=== PATIENT | female | born 1980 | race Caucasian/White ===

== ENCOUNTER 2019-01-14 19:36 | Inpatient (IN) | payer MEDICARE, OTHER ==
[2019-01-14] MEDS ORDERED: Sodium Chloride 0.9% 1,000 ML IV STA (20:04)
[2019-01-14] MEDS ORDERED: Iohexol 240 (50 ml) PO ONE (21:13)
[2019-01-14 21:19] LABS: BASO % 0.1 % (0.0-2.0); HEMOGLOBIN 16.3 g/dL (12.0-16.0); LYMPH # 0.7 K/uL (1.0-4.3); MEAN CELL VOLUME 87.6 fl (81.0-99.0); MEAN CORPUSCULAR HEMOGLOBIN 30.1 pg (27.0-31.0); MEAN CORPUSCULAR HGB CONC 34.4 g/dL (33.0-37.0); MEAN PLATELET VOLUME 10.1 fl (7.2-11.7); MONO # 1.6 K/uL (0.0-0.8); MONO % 16.2 % (0.0-10.0); NEUT # 7.5 K/uL (1.8-7.0); NEUT % 76.7 % (50.0-75.0); NRBC % 0.2 % (0.0-0.0); PLATELET COUNT 232 K/uL (130-400); RBC 5.42 Mil/uL (3.80-5.20); RED CELL DISTRIBUTION WIDTH 13.4 % (11.5-14.5); WHITE BLOOD COUNT 9.8 K/uL (4.8-10.8)
[2019-01-14 21:39] LABS: ALB/GLOB RATIO 1.4 (1.0-2.1); ALBUMIN 4.7 g/dL (3.5-5.0); BLOOD UREA NITROGEN 18 mg/dl (7-17); CALCIUM 9.6 mg/dL (8.4-10.2); GFR NON-AFRICAN AMERICAN > 60; LIPASE 25 U/L (23-300)
[2019-01-14 21:40] LABS: ALT/SGPT 33 U/L (9-52); AST/SGOT 36 U/L (14-36)
--- NOTE | 2019-01-14 21:47 | ED PDOC ---
HPI: Abdomen Time Seen by Provider: 01/14/19 19:52 Chief Complaint (Nursing): Abdominal Pain Chief Complaint (Provider): Abdominal Pain History Per: Patient History/Exam Limitations: no limitations Onset/Duration Of Symptoms: Days (x 4) Current Symptoms Are (Timing): Still Present Quality Of Discomfort: "Pain" Associated Symptoms: Vomiting Additional Complaint(s): 38 year old female with a history of cerebral palsy and seizures presents to the ED for evaluation of abdominal pain and vomiting for four days. Patient report vomit is bilious but denies blood. She also complains of weakness, lightheadedness and fatigue. Patient states she is constipated, however admits that is chronic. Denies fever and chills. PMD: Dr. Meza Past Medical History Reviewed: Historical Data (cerebral palsy), Nursing Documentation, Vital Signs Vital Signs: Last Vital Signs Temp 98.0 F 01/14/19 19:37 Pulse 104 H 01/14/19 19:37 Resp 16 01/14/19 19:37 BP 119/74 01/14/19 19:37 Pulse Ox 98 01/14/19 19:37 - Medical History PMH: Seizures Other PMH: cerebral palsy - Surgical History Surgical History: Cholecystectomy - Family History Family History: States: Unknown Family Hx - Social History Current smoker - smoking cessation education provided: No Alcohol: None - Allergies Allergies/Adverse Reactions: Allergies Allergy/AdvReac Type Severity Reaction Status Date / Time haloperidol [From Haldol] Allergy RASH Verified 01/14/19 19:41 latex Allergy RASH Verified 01/14/19 19:41 lithium Allergy RASH Verified 01/14/19 19:41 Review of Systems ROS Statement: Except As Marked, All Systems Reviewed And Found Negative Constitutional: Positive for: Weakness, Other (fatigue and lightheadedness). Negative for: Fever, Chills Gastrointestinal: Positive for: Vomiting, Abdominal Pain, Constipation (chronic) Physical Exam - Reviewed Nursing Documentation Reviewed: Yes Vital Signs Reviewed: Yes - Physical Exam Appears: Positive for: In Acute Distress (in mild distress, tired and chronically ill appearing) Head Exam: Positive for: ATRAUMATIC, NORMAL INSPECTION, NORMOCEPHALIC Skin: Positive for: Normal Color, Warm, Dry Eye Exam: Positive for: EOMI, Normal appearance, PERRL ENT: Positive for: Other (dry mucous membranes) Neck: Positive for: Painless ROM, Supple Cardiovascular/Chest: Positive for: Regular Rate, Rhythm. Negative for: Murmur Respiratory: Positive for: Normal Breath Sounds. Negative for: Respiratory Distress Gastrointestinal/Abdominal: Positive for: Soft, Tenderness (diffusely tender). Negative for: Mass, Guarding, Rebound Back: Positive for: Normal Inspection. Negative for: Vertebral Tenderness Extremity: Positive for: Normal ROM, Other (diffusely poor muscle bulk especially in lower extremities. Patient reports she is usually bed bound). Negative for: Deformity Lymphatic: Negative for: Adenopathy Neurological/Psych: Positive for: Awake, Alert, Oriented (x 3), Motor/Sensory Deficits (minimal cognitive deficits) - Laboratory Results Result Diagrams: 01/18/19 06:40 01/18/19 06:40 Lab Results: Total Bilirubin 0.6 mg/dl (0.2-1.3) 01/14/19 20:30 AST 36 U/L (14-36) 01/14/19 20:30 ALT 33 U/L (9-52) 01/14/19 20:30 Alkaline Phosphatase 81 U/L (38-126) 01/14/19 20:30 Total Protein 8.0 G/DL (6.3-8.2) 01/14/19 20:30 Albumin 4.7 g/dL (3.5-5.0) 01/14/19 20:30 Globulin 3.3 gm/dL (2.2-3.9) 01/14/19 20:30 Albumin/Globulin Ratio 1.4 (1.0-2.1) 01/14/19 20:30 Lipase 25 U/L (23-300) 01/14/19 20:30 - ECG O2 Sat by Pulse Oximetry: 98 (RA) Pulse Ox Interpretation: Normal Medical Decision Making Medical Decision Makin Impression: abdominal pain and vomiting Differential diagnoses include but are not limited to: gastroenteritis, colitis, appendicitis, obstruction Initial Plan: --CT Abd pelvis --Alcohol --CMP --CBC --UDS --Lactic acid --Lipase --Magnesium --Phosphate --Urine dip --Urine preg --Dextrose 5%- -0.9% NS IV 500 mls --NS IV 1,000 mls --Omnipaque 50 ml PO --Pepcid 20 mg IVP --Zofran 8 mg IV Endorsed to Dr Lugo pending ER workup, reassessment and final ER disposition -- Scribe Attestation: Documented by Janet Steen, acting as a scribe for Leisa Nielson MD. Provider Scribe Attestation: All medical record entries made by the Scribe were at my direction and personally dictated by me. I have reviewed the chart and agree that the record accurately reflects my personal performance of the history, physical exam, medical decision making, and the department course for this patient. I have also personally directed, reviewed, and agree with the discharge instructions and disposition. Disposition - Clinical Impression Clinical Impression: Abdominal pain - Disposition Disposition: Transfer of Care Disposition Time: 00:00 Condition: FAIR
[2019-01-14] MEDS ORDERED: DiphenhydrAMINE 50 mg/ml Inj IVP STA (22:33)
[2019-01-14 22:42] LABS: BANDS 3 % (0-2); LYMPHOCYTE 10 % (20-50); MONOCYTE 16 % (0-10); NEUTROPHIL 71 % (42-75); PLATELET ESTIMATE NORMAL (NORMAL); TOTAL CELLS COUNTED 100
[2019-01-14] MEDS ORDERED: DiphenhydrAMINE 50 mg/ml Inj ONE (22:50)
[2019-01-14] MEDS ORDERED: Promethazine 25 MG in Sodium Chloride 0.9% 50 ML IVPB STA (23:05)
[2019-01-14] MEDS ORDERED: Iohexol 300 100 ML IJ ONE (23:59)
[2019-01-14] MEDS ORDERED: Sodium Chloride 0.9% 50 ML IV ONE (23:59)
--- NOTE | 2019-01-15 00:21 | ED PDOC ---
- Laboratory Results Result Diagrams: 01/18/19 06:40 01/18/19 06:40 Lab Results: Total Bilirubin 0.6 mg/dl (0.2-1.3) 01/14/19 20:30 AST 36 U/L (14-36) 01/14/19 20:30 ALT 33 U/L (9-52) 01/14/19 20:30 Alkaline Phosphatase 81 U/L (38-126) 01/14/19 20:30 Total Protein 8.0 G/DL (6.3-8.2) 01/14/19 20:30 Albumin 4.7 g/dL (3.5-5.0) 01/14/19 20:30 Globulin 3.3 gm/dL (2.2-3.9) 01/14/19 20:30 Albumin/Globulin Ratio 1.4 (1.0-2.1) 01/14/19 20:30 Lipase 25 U/L (23-300) 01/14/19 20:30 Beta HCG, Quant < 2.39 mIU/mL 01/14/19 20:30 - ECG O2 Sat by Pulse Oximetry: 98 (RA) Pulse Ox Interpretation: Normal Medical Decision Making Medical Decision Making: Time: 00:00 Patient care endorsed from Dr. Nielson to provider pending CT and reevaluation. 00:52 CT Abd Pelvis COMMENTS: Minimal bilateral pleural effusions. Bilateral atelectatic airspace disease of the lower lobes. Prior cholecystectomy. Small sliding hiatal hernia. Moderate partial small bowel obstruction. Transition zone and right lower quadrant without perforation or pneumatosis intestinalis. The liver is of uniform attenuation without mass or defect. There is no intra or extrahepatic biliary ductal dilatation. The spleen is normal. The pancreas is of normal contour and attenuation characteristics. There is no evidence of adrenal mass. Both kidneys demonstrate prompt and equal nephrograms. The kidneys are normal in size, shape and configuration. There is no evidence of renal or ureteral mass. No renal or ureteral calculi are identified. There is no hydroureter or hydronephrosis. No evidence for appendicitis. There is no bowel wall thickening. There is no evidence of abdominal ascites or lymphadenopathy. There is no evidence of intrinsic or extrinsic bladder mass. There is no pelvic ascites or lymphadenopathy. Images of the lung bases show no evidence of pleural or parenchymal mass. There are no pleural effusions. The bony structures are free of lytic or blastic lesions. IMPRESSION: Minimal bilateral pleural effusions. Bilateral atelectatic airspace disease of the lower lobes. Prior cholecystectomy. Small sliding hiatal hernia. Moderate partial small bowel obstruction. Transition zone and right lower quadrant without perforation or pneumatosis intestinalis. 04:25 Patient is to be admitted to general surgery. Patient currently has NG tube for abdominal decompression. Patient will be admitted under Dr. Arzate's service for eventual laproscopic surgery. Scribe Attestation: Documented by Solitario Gaffney, acting as a scribe for Kenisha Lugo MD. Provider Scribe Attestation: All medical record entries made by the Scribe were at my direction and personally dictated by me. I have reviewed the chart and agree that the record accurately reflects my personal performance of the history, physical exam, [place] [facility] decision making, and the department course for this patient. I have also personally directed, reviewed, and agree with the discharge instructions and disposition. Disposition - Clinical Impression Clinical Impression: Abdominal pain - POA Present On Arrival: None - Disposition Disposition: Routine/Home Disposition Time: 04:24 Condition: FAIR
--- NOTE | 2019-01-15 04:35 | CP.PCM.HP ---
<Milton Zamudio - Last Filed: 01/15/19 09:38> History of Present Illness - History of Present Illness History of Present Illness: General Surgery H&P for Dr. Tinoco Reason for consult: SBO 38F with a PMH that includes cerebral palsy, ?seizures, anxiety presents to [facility] ED for complaint of abdominal pain for 4 days. Patient seen and evaluated in the ED. Patient states that her pain began Saturday. She states she has never had pain like this before. She rates pain as moderate. She describes it as constnant cramping and dull located in the lower abdominal midline. SHe reports that she also has not had a BM or passed flatus since Saturday. Patient has history of constipation and takes "Mylanta" for it. Patient reports four episodes of nausea/vomiting that was bilious in nature but denies blood. She also complains of weakness, dizziness/lightheadedness and fatigue. Denies fever/chills, cp, SOB, diarrhea, incontinence, urinary symptoms. PMH: as above PSH: Laparoscopic cholecystectomy ALL: haloperidol, latex, lithium Present on Admission - Present on Admission Any Indicators Present on Admission: No History of DVT/PE: No History of Uncontrolled Diabetes: No Urinary Catheter: No Decubitus Ulcer Present: No Review of Systems - Review of Systems All systems: reviewed and no additional remarkable complaints except (as per HPI) Past Patient History - Past Social History Alcohol: None - NEUROLOGICAL Hx Seizures: Yes - PSYCHIATRIC Hx Substance Use: No - SURGICAL HISTORY Hx Cholecystectomy: Yes Meds Allergies/Adverse Reactions: Allergies Allergy/AdvReac Type Severity Reaction Status Date / Time haloperidol [From Haldol] Allergy RASH Verified 01/14/19 19:41 latex Allergy RASH Verified 01/14/19 19:41 lithium Allergy RASH Verified 01/14/19 19:41 Physical Exam - Constitutional Appears: Non-toxic, No Acute Distress - Head Exam Head Exam: ATRAUMATIC, NORMOCEPHALIC - Eye Exam Eye Exam: EOMI, Normal appearance Pupil Exam: PERRL - ENT Exam ENT Exam: Mucous Membranes Dry - Neck Exam Neck exam: Positive for: Full Rom - Respiratory Exam Respiratory Exam: NORMAL BREATHING PATTERN - Cardiovascular Exam Cardiovascular Exam: REGULAR RHYTHM - GI/Abdominal Exam GI & Abdominal Exam: Hypoactive Bowel Sounds, Soft, Tenderness (lower abdomen, midline). absent: Distended, Firm, Guarding, Hernia, Rebound, Rigid - Rectal Exam Rectal Exam: Deferred - Extremities Exam Extremities exam: Positive for: normal capillary refill, pedal pulses present. Negative for: calf tenderness - Back Exam Back exam: absent: CVA tenderness (L), CVA tenderness (R) - Neurological Exam Neurological exam: Alert, CN II-XII Intact, Oriented x3 - Psychiatric Exam Psychiatric exam: Normal Affect, Normal Mood - Skin Skin Exam: Dry, Intact, Normal Color, Warm Results - Vital Signs Recent Vital Signs: Last Vital Signs Temp 98.8 F 01/15/19 03:41 Pulse 78 01/15/19 03:41 Resp 17 01/15/19 03:41 BP 123/71 01/15/19 03:41 Pulse Ox 98 01/15/19 04:29 - Labs Result Diagrams: 01/14/19 20:30 01/14/19 20:30 Labs: Laboratory Results - last 24 hr 01/14/19 01/14/19 01/14/19 20:29 20:30 20:30 WBC 9.8 RBC 5.42 H Hgb 16.3 H Hct 47.5 H MCV 87.6 MCH 30.1 MCHC 34.4 RDW 13.4 Plt Count 232 MPV 10.1 Neut % (Auto) 76.7 H Lymph % (Auto) 7.0 L Dauphin % (Auto) 16.2 H Eos % (Auto) 0.0 Baso % (Auto) 0.1 Neut # (Auto) 7.5 H Lymph # (Auto) 0.7 L Dauphin # (Auto) 1.6 H Eos # (Auto) 0.0 Baso # (Auto) 0.0 Neutrophils % (Manual) 71 Band Neutrophils % 3 H Lymphocytes % (Manual) 10 L Monocytes % (Manual) 16 H Platelet Estimate Normal Sodium 135 Potassium 3.7 Chloride 93 L Carbon Dioxide 25 Anion Gap 21 H BUN 18 H Creatinine 0.8 Est GFR ( Amer) > 60 Est GFR (Non-Af Amer) > 60 Random Glucose 134 H Lactic Acid 1.4 Calcium 9.6 Phosphorus 5.1 H Magnesium 2.1 Total Bilirubin 0.6 AST 36 ALT 33 Alkaline Phosphatase 81 Total Protein 8.0 Albumin 4.7 Globulin 3.3 Albumin/Globulin Ratio 1.4 Lipase 25 Beta HCG, Quant < 2.39 Alcohol, Quantitative Cancelled Assessment & Plan - Assessment and Plan (Free Text) Assessment: 38 F who presents with SBO that has transition point in lower abdomen Plan: -NPO -NGT -Low intermittent suction -Strict I's & O's -Pain control -Anti-emetics PRN -GI/DVT ppx -Serial abd exam -Monitor bowel function -Tentively plan for Diagnostic Laparoscopy in OR 01/15 -Discussed with Dr. Erik Zamudio PGY2 - Date & Time Date: 01/15/19 Time: 02:00 <Franklyn Valencia - Last Filed: 01/15/19 12:18> Results - Vital Signs Recent Vital Signs: Last Vital Signs Temp 97.9 F 01/15/19 08:24 Pulse 99 H 01/15/19 08:24 Resp 19 01/15/19 08:24 BP 110/75 01/15/19 08:24 Pulse Ox 100 01/15/19 08:24 - Labs Result Diagrams: 01/15/19 05:20 01/15/19 05:20 Labs: Laboratory Results - last 24 hr 01/14/19 01/14/19 01/14/19 20:29 20:30 20:30 WBC 9.8 RBC 5.42 H Hgb 16.3 H Hct 47.5 H MCV 87.6 MCH 30.1 MCHC 34.4 RDW 13.4 Plt Count 232 MPV 10.1 Neut % (Auto) 76.7 H Lymph % (Auto) 7.0 L Dauphin % (Auto) 16.2 H Eos % (Auto) 0.0 Baso % (Auto) 0.1 Neut # (Auto) 7.5 H Lymph # (Auto) 0.7 L Dauphin # (Auto) 1.6 H Eos # (Auto) 0.0 Baso # (Auto) 0.0 Neutrophils % (Manual) 71 Band Neutrophils % 3 H Lymphocytes % (Manual) 10 L Monocytes % (Manual) 16 H Platelet Estimate Normal PT INR APTT Sodium 135 Potassium 3.7 Chloride 93 L Carbon Dioxide 25 Anion Gap 21 H BUN 18 H Creatinine 0.8 Est GFR ( Amer) > 60 Est GFR (Non-Af Amer) > 60 Random Glucose 134 H Lactic Acid 1.4 Calcium 9.6 Phosphorus 5.1 H Magnesium 2.1 Total Bilirubin 0.6 AST 36 ALT 33 Alkaline Phosphatase 81 Total Protein 8.0 Albumin 4.7 Globulin 3.3 Albumin/Globulin Ratio 1.4 Lipase 25 Beta HCG, Quant < 2.39 Urine Opiates Screen Urine Methadone Screen Ur Barbiturates Screen Ur Phencyclidine Scrn Ur Amphetamines Screen U Benzodiazepines Scrn U Oth Cocaine Metabols U Cannabinoids Screen Alcohol, Quantitative Cancelled Blood Type Blood Type Confirm Antibody Screen BBK History Checked 01/15/19 01/15/19 01/15/19 04:35 05:00 05:20 WBC 7.2 RBC 4.99 Hgb 14.9 Hct 44.5 MCV 89.2 MCH 30.0 MCHC 33.6 RDW 13.4 Plt Count 178 MPV 9.5 Neut % (Auto) 60.4 Lymph % (Auto) 18.0 L Dauphin % (Auto) 21.1 H Eos % (Auto) 0.4 Baso % (Auto) 0.1 Neut # (Auto) 4.3 Lymph # (Auto) 1.3 Dauphin # (Auto) 1.5 H Eos # (Auto) 0.0 Baso # (Auto) 0.0 Neutrophils % (Manual) Band Neutrophils % Lymphocytes % (Manual) Monocytes % (Manual) Platelet Estimate PT INR APTT Sodium Potassium Chloride Carbon Dioxide Anion Gap BUN Creatinine Est GFR ( Amer) Est GFR (Non-Af Amer) Random Glucose Lactic Acid Calcium Phosphorus Magnesium Total Bilirubin AST ALT Alkaline Phosphatase Total Protein Albumin Globulin Albumin/Globulin Ratio Lipase Beta HCG, Quant Urine Opiates Screen Negative Urine Methadone Screen Negative Ur Barbiturates Screen Negative Ur Phencyclidine Scrn Negative Ur Amphetamines Screen Negative U Benzodiazepines Scrn Negative U Oth Cocaine Metabols Negative U Cannabinoids Screen Negative Alcohol, Quantitative Blood Type O POSITIVE Blood Type Confirm Antibody Screen Negative BBK History Checked No verified bt 01/15/19 01/15/19 01/15/19 05:20 05:20 09:25 WBC RBC Hgb Hct MCV MCH MCHC RDW Plt Count MPV Neut % (Auto) Lymph % (Auto) Dauphin % (Auto) Eos % (Auto) Baso % (Auto) Neut # (Auto) Lymph # (Auto) Dauphin # (Auto) Eos # (Auto) Baso # (Auto) Neutrophils % (Manual) Band Neutrophils % Lymphocytes % (Manual) Monocytes % (Manual) Platelet Estimate PT 12.2 INR 1.1 APTT 27.7 Sodium 136 Potassium 3.6 Chloride 97 L Carbon Dioxide 26 Anion Gap 17 BUN 17 Creatinine 0.8 Est GFR ( Amer) > 60 Est GFR (Non-Af Amer) > 60 Random Glucose 108 H Lactic Acid Calcium 8.5 Phosphorus 4.8 H Magnesium 2.1 Total Bilirubin 0.4 AST 22 ALT 32 Alkaline Phosphatase 71 Total Protein 6.5 Albumin 3.8 Globulin 2.7 Albumin/Globulin Ratio 1.4 Lipase Beta HCG, Quant Urine Opiates Screen Urine Methadone Screen Ur Barbiturates Screen Ur Phencyclidine Scrn Ur Amphetamines Screen U Benzodiazepines Scrn U Oth Cocaine Metabols U Cannabinoids Screen Alcohol, Quantitative Blood Type Blood Type Confirm O POSITIVE Antibody Screen BBK History Checked Assessment & Plan - Assessment and Plan (Free Text) Plan: All medical record entries made by the resident were at my direction. I have reviewed the chart and agree that the record accurately reflects my personal performance of the history, physical exam, medical decision making. I have also personally directed, reviewed, and agree with the managemet plan
[2019-01-15] MEDS: Lactated Ringer's 1,000 ML IV SCH (05:14)
[2019-01-15 05:54] LABS: BASO % 0.1 % (0.0-2.0); MONO # 1.5 K/uL (0.0-0.8); NEUT # 4.3 K/uL (1.8-7.0); NRBC % 0.1 % (0.0-0.0); RED CELL DISTRIBUTION WIDTH 13.4 % (11.5-14.5)
[2019-01-15 06:00] LABS: INR 1.1; PROTHROMBIN TIME 12.2 Seconds (9.8-13.1)
[2019-01-15 06:02] LABS: BARBITURATES, UR NEGATIVE (NEGATIVE); BENZODIAZEPINES, UR NEGATIVE (NEGATIVE); OPIATES, UR NEGATIVE (NEGATIVE); PHENCYCLIDINE, UR NEGATIVE (NEGATIVE)
[2019-01-15 06:03] LABS: PARTIAL THROMBOPLASTIN TIME 27.7 Seconds (25.6-37.1)
[2019-01-15 06:09] LABS: ALB/GLOB RATIO 1.4 (1.0-2.1); ALBUMIN 3.8 g/dL (3.5-5.0); ALT/SGPT 32 U/L (9-52); AST/SGOT 22 U/L (14-36); BLOOD UREA NITROGEN 17 mg/dl (7-17); CALCIUM 8.5 mg/dL (8.4-10.2); GFR NON-AFRICAN AMERICAN > 60
[2019-01-15 06:13] LABS: EOS % 0.4 % (0.0-4.0); HEMOGLOBIN 14.9 g/dL (12.0-16.0); LYMPH # 1.3 K/uL (1.0-4.3); MEAN CELL VOLUME 89.2 fl (81.0-99.0); MEAN CORPUSCULAR HGB CONC 33.6 g/dL (33.0-37.0); MEAN PLATELET VOLUME 9.5 fl (7.2-11.7); NEUT % 60.4 % (50.0-75.0); RBC 4.99 Mil/uL (3.80-5.20); WHITE BLOOD COUNT 7.2 K/uL (4.8-10.8)
[2019-01-15 06:24] LABS: MONO % 21.1 % (0.0-10.0)
--- NOTE | 2019-01-15 14:37 | CT ---
Date of service: 01/15/2019 PROCEDURE: CT Abdomen and Pelvis with contrast HISTORY: Abdominal pain and vomiting COMPARISON: None available. TECHNIQUE: CT scan of the abdomen and pelvis was performed after administration of intravenous contrast. Oral contrast was administered. Coronal and sagittal reformatted images were obtained. Contrast dose: 85 mL Omnipaque 300 Radiation dose: Total exam DLP = 441.2 mGy-cm. This CT exam was performed using one or more of the following dose reduction techniques: Automated exposure control, adjustment of the mA and/or kV according to patient size, and/or use of iterative reconstruction technique. FINDINGS: LOWER THORAX: Small right and trace left pleural effusions. LIVER: Mild hepatomegaly and fatty liver. Normal homogeneous enhancement. No gross lesion or ductal dilatation. GALLBLADDER AND BILE DUCTS: Surgically absent. PANCREAS: Normal in size with homogeneous enhancement. No gross lesion or ductal dilatation. SPLEEN: Normal in size and appearance. ADRENALS: No discrete nodule. KIDNEYS AND URETERS: Normal in size with homogeneous enhancement. No hydronephrosis. No solid mass. VASCULATURE: No aortic aneurysm. There are no aortic atherosclerotic calcifications or mural plaque present. BOWEL: The stomach is distended. There is severe dilatation of fluid-filled proximal and mid small bowel loops. The distal small bowel loops are decompressed. APPENDIX: Normal appendix. PERITONEUM: No free fluid. No free air. LYMPH NODES: No enlarged lymph nodes. BLADDER: Well distended and normal in appearance. REPRODUCTIVE: The uterus is normal in size. BONES: No acute fracture. Within normal limits for the patient's age. OTHER FINDINGS: None. IMPRESSION: Moderate grade acute distal small bowel obstruction with transition zone likely in the right lower quadrant. No perforation or pneumatosis intestinalis. A preliminary report was provided by [facility].
[2019-01-15] MEDS ORDERED: Lactated Ringer's 1,000 ML IV ONE ×2 (18:33→22:00)
[2019-01-15] MEDS ORDERED: Bupivacaine HCl 0.5% PF (30 ml) Inj ONE (18:43)
--- NOTE | 2019-01-15 20:43 | PCM.SURG1 ---
Surgeon's Initial Post Op Note - Surgeon's Notes Surgeon: Dr. Valencia Arabic Professor: Dr. Franco PGY3 Type of Anesthesia: General Endo Anesthesia Administered By: Dr. Gorman Pre-Operative Diagnosis: Small Bowel Obstruction Operative Findings: See operative dictation Post-Operative Diagnosis: Same Operation Performed: Exploratory laparoscopy, converted to open laparotomy, running of small bowel, repair of enterotomy Specimen/Specimens Removed: none Estimated Blood Loss: EBL {In ML}: 20 Blood Products Given: N/A Drains Used: No Drains Post-Op Condition: Good Date of Surgery/Procedure: 01/15/19 Time of Surgery/Procedure: 20:43
[2019-01-15] MEDS: HYDROmorphone 0.5 mg/0.5 ml ISec IVP PRN ×3 (20:55→21:25)
[2019-01-16] MEDS: Lactated Ringer's 1,000 ML IV SCH ×5 (00:26→16:55)
[2019-01-16] MEDS: HYDROmorphone 0.5 mg/0.5 ml ISec IVP PRN ×3 (02:00→17:44)
--- NOTE | 2019-01-16 08:09 | CP.PCM.PN ---
<Milton Zamudio - Last Filed: 01/16/19 08:14> Subjective - Date & Time of Evaluation Date of Evaluation: 01/16/19 Time of Evaluation: 08:14 - Subjective Subjective: General Surgery Note for Dr. Tinoco Patient seen and examined at bedside. No acute event overnight. Patient is s/p diagnostic laparoscopy converted to open with repair of enterotomy POD#1. Patient admits to moderate pain. NGT with 300cc of dark brown output. Patient denies flatus or BM. Denies fever/chills, cp SOB, nausea/vomiting, diarrhea, urinary symptoms. Objective - Vital Signs/Intake and Output Vital Signs (last 24 hours): Temp Pulse Resp BP Pulse Ox 97.7 F 95 H 19 101/64 95 01/16/19 05:00 01/16/19 05:00 01/16/19 05:00 01/16/19 05:00 01/16/19 05:00 Intake and Output: 01/16/19 01/16/19 06:59 18:59 Intake Total 250 Output Total 50 1150 Balance 200 -1150 - Medications Medications: Current Medications Hydromorphone HCl (Dilaudid) 0.5 mg IVP Q4 PRN PRN Reason: Pain, moderate (4-7) Last Admin: 01/16/19 07:11 Dose: 0.5 mg Lactated Ringer's (Lactated Ringer's) 1,000 mls @ 150 mls/hr IV .Q6H40M [facility] Morphine Sulfate (Morphine) 2 mg IVP Q4 PRN PRN Reason: Pain, moderate (4-7) Ondansetron HCl (Zofran Inj) 4 mg IVP Q6 PRN PRN Reason: Nausea/Vomiting Pantoprazole Sodium (Protonix Inj) 40 mg IVP DAILY [facility] Last Admin: 01/15/19 08:59 Dose: 40 mg - Labs Labs: 01/15/19 05:20 01/15/19 05:20 PT 12.2 Seconds (9.8-13.1) 01/15/19 05:20 INR 1.1 01/15/19 05:20 APTT 27.7 Seconds (25.6-37.1) 01/15/19 05:20 - Constitutional Appears: No Acute Distress - Head Exam Head Exam: ATRAUMATIC, NORMOCEPHALIC - Eye Exam Eye Exam: EOMI, Normal appearance Pupil Exam: PERRL - Neck Exam Additional comments: NGT in place - Respiratory Exam Respiratory Exam: NORMAL BREATHING PATTERN - Cardiovascular Exam Cardiovascular Exam: REGULAR RHYTHM - GI/Abdominal Exam GI & Abdominal Exam: Soft, Tenderness (at surgical sites), Hypoactive Bowel S ounds - Rectal Exam Rectal Exam: Deferred - Extremities Exam Extremities Exam: Normal Capillary Refill - Back Exam Back Exam: absent: CVA tenderness (L), CVA tenderness (R) - Neurological Exam Neurological Exam: Alert, Awake, Oriented x3 - Psychiatric Exam Psychiatric exam: Normal Affect, Normal Mood - Skin Skin Exam: Dry, Intact, Warm Assessment and Plan - Assessment and Plan (Free Text) Assessment: 38 F who presented with SBO s/p diagnostic laparoscopy converted to open with repair of enterotomy POD#1 Plan: -NPO -NGT -low intermittent suction -Pain control -Anti-emetics PRN -Protonix -Serial abd exams -Monitor for bowel function -CT triple phase abd/pelvis 01/17 -Further recommendations as per Dr. Gunter PGY2 <Franklyn Valencia - Last Filed: 01/20/19 13:39> Subjective - Subjective Subjective: All medical record entries made by the resident were at my direction. I have reviewed the chart and agree that the record accurately reflects my personal performance of the history, physical exam, medical decision making. I have also personally directed, reviewed, and agree with the resident note Objective - Vital Signs/Intake and Output Vital Signs (last 24 hours): Temp Pulse Resp BP Pulse Ox 97.9 F 93 H 18 116/81 95 01/20/19 07:49 01/20/19 07:49 01/20/19 07:49 01/20/19 07:49 01/20/19 07:49 Intake and Output: 01/20/19 01/20/19 06:59 18:59 Output Total 450 Balance -450 - Medications Medications: Current Medications Benzocaine/Menthol (Cepacol Sore Throat) 1 rebecca PO Q3 PRN PRN Reason: Sore Throat Last Admin: 01/17/19 17:18 Dose: 1 rebecca Clozapine (Clozaril) 300 mg PO Q12H [facility] Last Admin: 01/20/19 11:12 Dose: 300 mg Enoxaparin Sodium (Lovenox) 40 mg SC DAILY [facility]; Protocol Last Admin: 01/20/19 11:11 Dose: 40 mg Erythromycin (Erythocin) 250 mg PO Q8H [facility]; Protocol Last Admin: 01/20/19 11:08 Dose: 250 mg Lactated Ringer's (Lactated Ringer's) 1,000 mls @ 150 mls/hr IV .Q6H40M [facility] Last Admin: 01/20/19 05:26 Dose: Not Given Ketorolac Tromethamine (Toradol) 30 mg IVP Q6 PRN PRN Reason: Pain, moderate (4-7) Last Admin: 01/19/19 16:00 Dose: 30 mg Lidocaine (Lidoderm) 1 ea TD DAILY [facility] Last Admin: 01/20/19 11:09 Dose: 1 ea Mirtazapine (Remeron) 30 mg PO HS [facility] Last Admin: 01/19/19 22:19 Dose: 30 mg Ondansetron HCl (Zofran Inj) 4 mg IVP Q6 PRN PRN Reason: Nausea/Vomiting Pantoprazole Sodium (Protonix Inj) 40 mg IVP DAILY [facility] Last Admin: 01/20/19 11:11 Dose: 40 mg - Labs Labs: 01/20/19 08:40 01/20/19 08:40 PT 12.2 Seconds (9.8-13.1) 01/15/19 05:20 INR 1.1 01/15/19 05:20 APTT 27.7 Seconds (25.6-37.1) 01/15/19 05:20
[2019-01-16 09:13] LABS: BASO % 0.2 % (0.0-2.0); EOS % 0.5 % (0.0-4.0); LYMPH # 1.2 K/uL (1.0-4.3); LYMPH % 14.3 % (20.0-40.0); MEAN CORPUSCULAR HEMOGLOBIN 29.4 pg (27.0-31.0); MEAN PLATELET VOLUME 9.2 fl (7.2-11.7); MONO # 0.9 K/uL (0.0-0.8); NEUT # 6.4 K/uL (1.8-7.0); NRBC % 0.1 % (0.0-0.0); RBC 4.42 Mil/uL (3.80-5.20); RED CELL DISTRIBUTION WIDTH 13.5 % (11.5-14.5); WHITE BLOOD COUNT 8.5 K/uL (4.8-10.8)
[2019-01-16 09:32] LABS: ALB/GLOB RATIO 1.2 (1.0-2.1); ALBUMIN 2.9 g/dL (3.5-5.0); ALT/SGPT 112 U/L (9-52); AST/SGOT 122 U/L (14-36); BLOOD UREA NITROGEN 10 mg/dl (7-17); CALCIUM 8.1 mg/dL (8.4-10.2); GFR NON-AFRICAN AMERICAN > 60
[2019-01-16] MEDS: Potassium CL 10mEq/100ml 100 ML IVPB SCH ×5 (12:48→22:35)
[2019-01-17] MEDS: Lactated Ringer's 1,000 ML IV SCH ×6 (01:25→21:34)
[2019-01-17 07:01] LABS: BASO % 0.3 % (0.0-2.0); EOS # 0.1 K/uL (0.0-0.7); EOS % 1.6 % (0.0-4.0); HEMOGLOBIN 11.9 g/dL (12.0-16.0); LYMPH % 11.2 % (20.0-40.0); MEAN CORPUSCULAR HEMOGLOBIN 29.9 pg (27.0-31.0); MEAN CORPUSCULAR HGB CONC 33.3 g/dL (33.0-37.0); MEAN PLATELET VOLUME 9.4 fl (7.2-11.7); MONO # 0.6 K/uL (0.0-0.8); MONO % 7.2 % (0.0-10.0); NEUT # 7.2 K/uL (1.8-7.0); NEUT % 79.7 % (50.0-75.0); RBC 3.98 Mil/uL (3.80-5.20)
[2019-01-17 07:21] LABS: ALB/GLOB RATIO 1.2 (1.0-2.1); ALBUMIN 2.9 g/dL (3.5-5.0); ALT/SGPT 72 U/L (9-52); AST/SGOT 60 U/L (14-36); BLOOD UREA NITROGEN 8 mg/dl (7-17); CALCIUM 8.4 mg/dL (8.4-10.2); GFR NON-AFRICAN AMERICAN > 60
--- NOTE | 2019-01-17 07:35 | CP.PCM.PN ---
<Milton Zamudio - Last Filed: 01/17/19 11:20> Subjective - Date & Time of Evaluation Date of Evaluation: 01/17/19 Time of Evaluation: 07:20 - Subjective Subjective: General Surgery Note for Dr. Tinoco Patient seen and examined at bedside. No acute event overnight. Patient is s/p diagnostic laparoscopy converted to open with repair of enterotomy POD#2. Patient reports pain slightly improved. NGT with 600cc/24hrs of dark brown output. Urine output was 900cc/24hr as per nursing. Patient denies flatus or BM. Patient home psych meds were restarted. She is OOB to chair this AM and using IS. Denies fever/chills, cp SOB, nausea/vomiting, diarrhea, urinary symptoms. Objective - Vital Signs/Intake and Output Vital Signs (last 24 hours): Temp Pulse Resp BP Pulse Ox 98.6 F 106 H 17 107/70 95 01/17/19 00:25 01/17/19 00:25 01/17/19 00:25 01/17/19 00:25 01/17/19 00:25 - Medications Medications: Current Medications Clozapine (Clozaril) 300 mg PO Q12H [facility] Last Admin: 01/17/19 01:21 Dose: 300 mg Enoxaparin Sodium (Lovenox) 40 mg SC DAILY [facility]; Protocol Hydromorphone HCl (Dilaudid) 0.5 mg IVP Q4 PRN PRN Reason: Pain, moderate (4-7) Last Admin: 01/16/19 17:44 Dose: 0.5 mg Lactated Ringer's (Lactated Ringer's) 1,000 mls @ 150 mls/hr IV .Q6H40M [facility] Last Admin: 01/17/19 05:49 Dose: Not Given Mirtazapine (Remeron) 30 mg PO HS [facility] Last Admin: 01/17/19 01:24 Dose: 30 mg Morphine Sulfate (Morphine) 2 mg IVP Q4 PRN PRN Reason: Pain, moderate (4-7) Ondansetron HCl (Zofran Inj) 4 mg IVP Q6 PRN PRN Reason: Nausea/Vomiting Pantoprazole Sodium (Protonix Inj) 40 mg IVP DAILY [facility] Last Admin: 01/16/19 11:12 Dose: 40 mg - Labs Labs: 01/17/19 05:35 01/17/19 05:35 PT 12.2 Seconds (9.8-13.1) 01/15/19 05:20 INR 1.1 01/15/19 05:20 APTT 27.7 Seconds (25.6-37.1) 01/15/19 05:20 - Additional Findings Additional findings: - Constitutional Appears: No Acute Distress - Head Exam Head Exam: ATRAUMATIC, NORMOCEPHALIC - Eye Exam Eye Exam: EOMI, Normal appearance Pupil Exam: PERRL - ENT Exam Additional comments: NGT in place - Respiratory Exam Respiratory Exam: NORMAL BREATHING PATTERN - Cardiovascular Exam Cardiovascular Exam: REGULAR RHYTHM - GI/Abdominal Exam GI & Abdominal Exam: Soft, Tenderness (at surgical sites), Hypoactive Bowel Sounds - Extremities Exam Extremities Exam: Normal Capillary Refill - Back Exam Back Exam: absent: CVA tenderness (L), CVA tenderness (R) - Neurological Exam Neurological Exam: Alert, Awake, Oriented x3 - Psychiatric Exam Psychiatric exam: Normal Affect, Normal Mood - Skin Skin Exam: Dry, Intact, Warm Assessment and Plan - Assessment and Plan (Free Text) Assessment: 38 F who presented with SBO s/p diagnostic laparoscopy converted to open with repair of enterotomy POD#2 Plan: -NPO -NGT -low intermittent suction -Pain control -Anti-emetics PRN -Protonix -Strict I's & O's -Continue home meds -Serial abd exams -Monitor for bowel function -Possible CT triple phase abd/pelvis today 01/17 -PT/OT -Further recommendations as per Dr. Gunter PGY2 <Franklyn Valencia - Last Filed: 01/20/19 13:36> Subjective - Subjective Subjective: All medical record entries made by the resident were at my direction. I have reviewed the chart and agree that the record accurately reflects my personal performance of the history, physical exam, medical decision making. I have also personally directed, reviewed, and agree with the resident note Objective - Vital Signs/Intake and Output Vital Signs (last 24 hours): Temp Pulse Resp BP Pulse Ox 97.9 F 93 H 18 116/81 95 01/20/19 07:49 01/20/19 07:49 01/20/19 07:49 01/20/19 07:49 01/20/19 07:49 Intake and Output: 01/20/19 01/20/19 06:59 18:59 Output Total 450 Balance -450 - Medications Medications: Current Medications Benzocaine/Menthol (Cepacol Sore Throat) 1 rebecca PO Q3 PRN PRN Reason: Sore Throat Last Admin: 01/17/19 17:18 Dose: 1 rebecca Clozapine (Clozaril) 300 mg PO Q12H [facility] Last Admin: 01/20/19 11:12 Dose: 300 mg Enoxaparin Sodium (Lovenox) 40 mg SC DAILY [facility]; Protocol Last Admin: 01/20/19 11:11 Dose: 40 mg Erythromycin (Erythocin) 250 mg PO Q8H [facility]; Protocol Last Admin: 01/20/19 11:08 Dose: 250 mg Lactated Ringer's (Lactated Ringer's) 1,000 mls @ 150 mls/hr IV .Q6H40M [facility] Last Admin: 01/20/19 05:26 Dose: Not Given Ketorolac Tromethamine (Toradol) 30 mg IVP Q6 PRN PRN Reason: Pain, moderate (4-7) Last Admin: 01/19/19 16:00 Dose: 30 mg Lidocaine (Lidoderm) 1 ea TD DAILY [facility] Last Admin: 01/20/19 11:09 Dose: 1 ea Mirtazapine (Remeron) 30 mg PO HS [facility] Last Admin: 01/19/19 22:19 Dose: 30 mg Ondansetron HCl (Zofran Inj) 4 mg IVP Q6 PRN PRN Reason: Nausea/Vomiting Pantoprazole Sodium (Protonix Inj) 40 mg IVP DAILY [facility] Last Admin: 01/20/19 11:11 Dose: 40 mg - Labs Labs: 01/20/19 08:40 01/20/19 08:40 PT 12.2 Seconds (9.8-13.1) 01/15/19 05:20 INR 1.1 01/15/19 05:20 APTT 27.7 Seconds (25.6-37.1) 01/15/19 05:20
[2019-01-17] MEDS ORDERED: Morphine 4 MG/ML VIAL ONE (09:28)
[2019-01-17] MEDS ORDERED: Morphine 4 MG/ML VIAL IVP PRN (09:30)
[2019-01-17] MEDS: Lidocaine 5% Patch TD SCH (11:01)
[2019-01-17] MEDS ORDERED: Potassium Phosphate 30 MMOLE in Sodium Chloride 0.9% 250 ML IV ONE (11:30)
[2019-01-17 13:52] VITALS: BMI 24.4
[2019-01-17] MEDS: Potassium CL 10mEq/100ml 100 ML IVPB SCH ×2 (14:09→15:34)
[2019-01-17] MEDS: Enoxaparin 40 mg Syringe SC SCH (15:32)
[2019-01-17] MEDS: Benzocaine/Menthol (Cepacol) Lozenge PO PRN (17:18)
[2019-01-18] MEDS: Lactated Ringer's 1,000 ML IV SCH ×5 (03:44→21:29)
[2019-01-18 07:40] LABS: BASO % 0.4 % (0.0-2.0); EOS # 0.4 K/uL (0.0-0.7); EOS % 4.8 % (0.0-4.0); LYMPH # 1.1 K/uL (1.0-4.3); LYMPH % 14.2 % (20.0-40.0); MEAN CELL VOLUME 88.9 fl (81.0-99.0); MEAN CORPUSCULAR HEMOGLOBIN 29.8 pg (27.0-31.0); MEAN CORPUSCULAR HGB CONC 33.5 g/dL (33.0-37.0); MEAN PLATELET VOLUME 8.8 fl (7.2-11.7); MONO # 0.6 K/uL (0.0-0.8); MONO % 8.4 % (0.0-10.0); NEUT # 5.4 K/uL (1.8-7.0); NEUT % 72.2 % (50.0-75.0); NRBC % 0.1 % (0.0-0.0); RBC 4.02 Mil/uL (3.80-5.20); RED CELL DISTRIBUTION WIDTH 13.1 % (11.5-14.5); WHITE BLOOD COUNT 7.5 K/uL (4.8-10.8)
[2019-01-18 08:43] LABS: ALB/GLOB RATIO 1.1 (1.0-2.1); ALBUMIN 3.1 g/dL (3.5-5.0); ALT/SGPT 55 U/L (9-52); AST/SGOT 31 U/L (14-36); BLOOD UREA NITROGEN 5 mg/dl (7-17); CALCIUM 8.7 mg/dL (8.4-10.2); GFR NON-AFRICAN AMERICAN > 60
[2019-01-18] MEDS ORDERED: Iohexol 240 (50 ml) PO STA (09:43)
--- NOTE | 2019-01-18 09:48 | CP.PCM.PN ---
<Milton Zamudio - Last Filed: 01/18/19 10:02> Subjective - Date & Time of Evaluation Date of Evaluation: 01/18/19 Time of Evaluation: 10:02 - Subjective Subjective: General Surgery Note for Dr. Tinoco Patient seen and examined at bedside. No acute event overnight. Patient is s/p diagnostic laparoscopy converted to open with repair of enterotomy POD#3. Patient reports pain has improved. NGT with 500cc/24hrs of dark brown output. Admits flatus but denies BM. She is OOB to chair this AM and using IS. She has been ambulating intermittently. Denies fever/chills, cp SOB, nausea/vomiting, diarrhea, urinary symptoms. Objective - Vital Signs/Intake and Output Vital Signs (last 24 hours): Temp Pulse Resp BP Pulse Ox 98.0 F 99 H 19 113/79 96 01/18/19 07:50 01/18/19 07:50 01/18/19 07:50 01/18/19 07:50 01/18/19 07:50 Intake and Output: 01/18/19 01/18/19 06:59 18:59 Intake Total 3510 Output Total 900 Balance 2610 - Medications Medications: Current Medications Benzocaine/Menthol (Cepacol Sore Throat) 1 rebecca PO Q3 PRN PRN Reason: Sore Throat Last Admin: 01/17/19 17:18 Dose: 1 rebecca Clozapine (Clozaril) 300 mg PO Q12H [facility] Last Admin: 01/17/19 21:37 Dose: 300 mg Enoxaparin Sodium (Lovenox) 40 mg SC DAILY [facility]; Protocol Last Admin: 01/17/19 15:32 Dose: 40 mg Hydromorphone HCl (Dilaudid) 0.5 mg IVP Q4 PRN PRN Reason: Pain, moderate (4-7) Last Admin: 01/16/19 17:44 Dose: 0.5 mg Lactated Ringer's (Lactated Ringer's) 1,000 mls @ 150 mls/hr IV .Q6H40M [facility] Last Admin: 01/18/19 03:47 Dose: Not Given Potassium Chloride (Potassium Chloride 10 Meq/100 Ml) 100 mls @ 100 mls/hr IVPB Q1 [facility] Stop: 01/18/19 12:59 Iohexol (Omnipaque 240 (50 Ml)) 250 ml PO ONCE STA Stop: 01/18/19 09:44 Ketorolac Tromethamine (Toradol) 30 mg IVP Q6 PRN PRN Reason: Pain, moderate (4-7) Last Admin: 01/18/19 02:20 Dose: 30 mg Lidocaine (Lidoderm) 1 ea TD DAILY [facility] Last Admin: 01/17/19 11:01 Dose: 1 ea Mirtazapine (Remeron) 30 mg PO HS [facility] Last Admin: 01/17/19 21:37 Dose: 30 mg Morphine Sulfate (Morphine) 2 mg IVP Q4 PRN PRN Reason: Pain, moderate (4-7) Last Admin: 01/17/19 09:30 Dose: 2 mg Ondansetron HCl (Zofran Inj) 4 mg IVP Q6 PRN PRN Reason: Nausea/Vomiting Pantoprazole Sodium (Protonix Inj) 40 mg IVP DAILY [facility] Last Admin: 01/17/19 09:20 Dose: 40 mg - Labs Labs: 01/18/19 06:40 01/18/19 06:40 PT 12.2 Seconds (9.8-13.1) 01/15/19 05:20 INR 1.1 01/15/19 05:20 APTT 27.7 Seconds (25.6-37.1) 01/15/19 05:20 - Additional Findings Additional findings: - Constitutional Appears: No Acute Distress - Head Exam Head Exam: ATRAUMATIC, NORMOCEPHALIC - Eye Exam Eye Exam: EOMI, Normal appearance Pupil Exam: PERRL - ENT Exam Additional comments: NGT in place - Respiratory Exam Respiratory Exam: NORMAL BREATHING PATTERN - Cardiovascular Exam Cardiovascular Exam: REGULAR RHYTHM - GI/Abdominal Exam GI & Abdominal Exam: Soft, Tenderness (at surgical sites), Normal Bowel Sounds - Extremities Exam Extremities Exam: Normal Capillary Refill - Back Exam Back Exam: absent: CVA tenderness (L), CVA tenderness (R) - Neurological Exam Neurological Exam: Alert, Awake, Oriented x3 - Psychiatric Exam Psychiatric exam: Normal Affect, Normal Mood - Skin Skin Exam: Dry, Intact, Warm Assessment and Plan - Assessment and Plan (Free Text) Assessment: 38 F who presented with SBO s/p diagnostic laparoscopy converted to open with repair of enterotomy POD#3 Plan: -NPO -NGT to low intermittent suction -becker candy and gum for bowel stimulation -Pain control -Anti-emetics PRN -Protonix/Lovenox -Strict I's & O's -Replete electrolytes as needed -Continue home meds -Serial abd exams -Monitor for bowel function -CT triple phase abd/pelvis today -PT/OT -Encourage OOB to chair, ambulation, IS -Further recommendations as per Dr. Gunter PGY2 <Franklyn Valencia - Last Filed: 01/20/19 13:33> Subjective - Subjective Subjective: All medical record entries made by the resident were at my direction. I have reviewed the chart and agree that the record accurately reflects my personal performance of the history, physical exam, medical decision making. I have also personally directed, reviewed, and agree with the resident note Objective - Vital Signs/Intake and Output Vital Signs (last 24 hours): Temp Pulse Resp BP Pulse Ox 97.9 F 93 H 18 116/81 95 01/20/19 07:49 01/20/19 07:49 01/20/19 07:49 01/20/19 07:49 01/20/19 07:49 Intake and Output: 01/20/19 01/20/19 06:59 18:59 Output Total 450 Balance -450 - Medications Medications: Current Medications Benzocaine/Menthol (Cepacol Sore Throat) 1 rebecca PO Q3 PRN PRN Reason: Sore Throat Last Admin: 01/17/19 17:18 Dose: 1 rebecca Clozapine (Clozaril) 300 mg PO Q12H [facility] Last Admin: 01/20/19 11:12 Dose: 300 mg Enoxaparin Sodium (Lovenox) 40 mg SC DAILY [facility]; Protocol Last Admin: 01/20/19 11:11 Dose: 40 mg Erythromycin (Erythocin) 250 mg PO Q8H [facility]; Protocol Last Admin: 01/20/19 11:08 Dose: 250 mg Lactated Ringer's (Lactated Ringer's) 1,000 mls @ 150 mls/hr IV .Q6H40M [facility] Last Admin: 01/20/19 05:26 Dose: Not Given Ketorolac Tromethamine (Toradol) 30 mg IVP Q6 PRN PRN Reason: Pain, moderate (4-7) Last Admin: 01/19/19 16:00 Dose: 30 mg Lidocaine (Lidoderm) 1 ea TD DAILY [facility] Last Admin: 01/20/19 11:09 Dose: 1 ea Mirtazapine (Remeron) 30 mg PO HS [facility] Last Admin: 01/19/19 22:19 Dose: 30 mg Ondansetron HCl (Zofran Inj) 4 mg IVP Q6 PRN PRN Reason: Nausea/Vomiting Pantoprazole Sodium (Protonix Inj) 40 mg IVP DAILY [facility] Last Admin: 01/20/19 11:11 Dose: 40 mg - Labs Labs: 01/20/19 08:40 01/20/19 08:40 PT 12.2 Seconds (9.8-13.1) 01/15/19 05:20 INR 1.1 01/15/19 05:20 APTT 27.7 Seconds (25.6-37.1) 01/15/19 05:20
[2019-01-18] MEDS: Lidocaine 5% Patch TD SCH (10:53)
[2019-01-18] MEDS: Enoxaparin 40 mg Syringe SC SCH (10:53)
[2019-01-18] MEDS: Potassium CL 10mEq/100ml 100 ML IVPB SCH ×3 (11:11→13:17)
[2019-01-18] MEDS ORDERED: Morphine 4 MG/ML VIAL IVP PRN (12:59)
[2019-01-18] MEDS ORDERED: Sodium Chloride 0.9% 100 ML ONE (14:17)
[2019-01-18] MEDS ORDERED: Iodixanol 320 MG/ML 100 ML BOTTLE IV ONE (14:17)
--- NOTE | 2019-01-18 16:37 | CT ---
Date of service: 01/18/2019 PROCEDURE: CT Abdomen and Pelvis with and without intravenous contrast HISTORY: S/P EX-LAP, SBO COMPARISON: 01/15/2019 CT scan TECHNIQUE: Axial images of the abdomen were obtained in the pre contrast, portal venous and delayed phases of enhancement. Coronal and sagittal reformats were generated. Contrast dose: 95 mL Radiation dose: Total exam DLP = 1019.23 mGy-cm. This CT exam was performed using one or more of the following dose reduction techniques: Automated exposure control, adjustment of the mA and/or kV according to patient size, and/or use of iterative reconstruction technique. FINDINGS: LOWER THORAX: Small right pleural effusion is noted, slightly greater than on prior exam. Mild subsegmental atelectasis is seen at the right lung base. Minor left pleural fluid and subsegmental atelectasis are also noted. Minor subsegmental atelectasis is seen in the right middle lobe region. LIVER: No appreciable enhancing masses within the liver are noted. There are small areas of air tracking along the portal regions and overlying the liver consistent with the patient's interval abdominal surgery. Small amount of ascites is also seen overlying the liver. Portal vein is patent. There is evidence of prior cholecystectomy. Common bile duct is normal in size. Minimal amount of intrahepatic ductal dilatation is not excluded although the common bile duct is once again normal in size. GALLBLADDER AND BILE DUCTS: Gallbladder has been previously removed. PANCREAS: Unremarkable. No gross lesion or ductal dilatation. SPLEEN: Unchanged from recent study. Tiny calcification is seen in the spleen.. ADRENALS: Unremarkable. No mass. KIDNEYS AND URETERS: Kidneys show no evidence of infarct, perinephric change, or hydronephrosis. No renal calculus was seen. Ureters are normal in outline. VASCULATURE: Unremarkable. No aortic aneurysm. No aortic atherosclerotic calcification or mural plaque present. BOWEL: Since the prior examination there has been interval abdominal surgery with numerous areas of free intraperitoneal air appreciated. There is evidence of anterior abdominal wall subcutaneous induration and some small pockets of air consistent with the surgery. Surgical ted are seen overlying the anterior abdominal skin region. Mild amounts of induration and thickening are seen in the anterior abdominal musculature related to the prior surgery. No large focal hematoma is appreciated. There is interval decrease in numerous regions of previously identified small bowel obstruction. Oral contrast is seen in multiple small bowel loops, some of which appear to be persistently dilated. Noted within the left upper abdomen are some dilated contrast filled loops identified and noted on axial images 58 through 78 and coronal images 36 through 45 is a possible small area of intussusception versus an area of acutely angulated tortuous small-bowel. A number of the other more distal small bowel loops appear to be moderately decompressed. Visualized colon is unremarkable without bowel wall thickening or distention. NG tube is also identified in the stomach which is predominantly decompressed. Visualized duodenum is unremarkable without significant opacification. APPENDIX: Normal appendix. PERITONEUM: Free intraperitoneal air is once again identified with some mild amounts of ascites. There are some mild areas of scattered nodularity in the mesentery which may reflect some mesenteric adenitis or be related to the recent inflammation and bowel obstruction. LYMPH NODES: Unremarkable. No enlarged lymph nodes. BLADDER: Bladder is mildly distended without wall thickening. Mild fluid is seen in the pelvis. REPRODUCTIVE: Uterus is unchanged. No gross adnexal masses are seen. BONES: No acute fracture. OTHER FINDINGS: None. IMPRESSION: Status post interval exploratory lap for small bowel obstruction when compared to the recent study dated 01/15/2019. Free intraperitoneal air is identified consistent with the recent surgery. There is interval decreased small bowel dilatation, although some persistent loops of small bowel dilatation are seen including some dilated loops in the left upper abdomen. In this region a subtle area of possible telescoping bowel is possibly noted, although this could be related to acute angulation and tortuosity of the small bowel in this region. Small amount of intussusception cannot be excluded. Oral contrast is seen throughout the colon without colonic wall thickening. Mild ascites. No appreciable focal liver mass. If focal liver mass remains of strong clinical concern, MRI would be suggested for further evaluation. Examination was placed into the critical red folder utilizing department protocol. Dr. Hernandes of the Surgical service was notified.
[2019-01-19] MEDS: Lactated Ringer's 1,000 ML IV SCH ×2 (04:12→22:46)
--- NOTE | 2019-01-19 07:14 | OP ---
PROCEDURE DATE: 01/15/2019 PREOPERATIVE DIAGNOSIS: Small bowel resection. POSTOPERATIVE DIAGNOSIS: Small bowel resection. PROCEDURE PERFORMED: Exploratory laparoscopy converted to open laparotomy, running of bowel and repair of enterotomy. SURGEON: Dr. Franklyn Tinoco MARCELL SURGEON: Aydin Franco, PGY-3. TYPE OF ANESTHESIA: General endotracheal anesthesia. ANESTHESIA ADMINISTERED BY: Shad Gorman MD COMPLICATIONS: Iatrogenic enterotomy. PATIENT INFORMATION: This is a pleasant 38-year-old female with a past medical history of cerebral palsy, anxiety, and schizophrenia, who presented to [facility] ED with four days of complaints of abdominal pain. The patient had a past surgical history significant for laparoscopic cholecystectomy. She reports that this abdominal pain often associated with a lack of flatus or bowel movements associated with constipation. In the ED, she had a CT scan which showed dilated loops of bowel with a clear transition point on the right side of the abdomen. Taken into account her surgical history, the decision was made to take her for a laparoscopic lysis of adhesions or small bowel resection for obstruction. DESCRIPTION OF PROCEDURE: After discussing with the patient, the possible consequences of non-operating as well the consequences of operating taken everything into account, the patient able to describe in accurate detail what the surgery would entail and she signed consent. She was then taken to the operating room where she was placed on the operating room table in the supine position. She was then intubated. Endotracheal anesthesia was administered. The patient was then prepped and draped in the usual sterile fashion. A time-out was done. Preoperative check list was conducted and all pertinent information was discussed with the operating team and everyone agreed on the procedure, patient and operation. An incision was made with a #11 blade infraumbilical. Then, using the tonsil, the subcutaneous tissues were then dissected down to the line of the fascia. A Veress needle was then inserted and confirmed using a saline viscous test. Gas insufflation was then obtained up to 15 mmHg. Using a Visi-Port technique under direct visualization, the #11 trocar was inserted into the abdomen and was inspected and there were no signs of any bowel injury. Dilated loops of bowel covered with omentum were noted. Next, a 5 mm port was inserted on the left abdominal wall and another one in the left wall. Under direct visualization, no damage to the bowel was noted. The cecum was identified and it was followed until the appendix was noted and the terminal ileum. The bowel was then run proximally. It was noted to be collapsed at the distal aspect; however, became dilated. During the running of the bowel, laparoscopically it was noted that there were multiple firm mass-like lesions; however, nothing was visible laparoscopically. The bowel was run proximally. Then, the bowel was again run distally. During the running of the bowel distally while using the atraumatic grasper, the bowel was very friable and a small enterotomy was made. At that point, the decision was made to convert to an open operation. While maintaining insufflation, the initial infraumbilical port was removed. The incision was then extended laterally one inch in each direction approximately. The small bowel was then eviscerated. The bowel was then run. The enterotomy was found. It was closed using three Lembert stitches with 2-0 silk suture. The bowel was run in both directions. No other enterotomies were noted. There was a clear area in which the bowel had been collapsed and healthy and the area in which there was dilation; however, there was no specific region in which there was an obvious stricture. However of note, there were multiple areas that appeared to be possibly hematomas or hamartomas in which there were dark areas that were firm to palpation with notable mass-like features. After running the bowel multiple times, the bowel was then inserted. There were adhesions noted in the anterior abdominal wall, which were dissected bluntly. The abdominal incision was then closed using 2-0 PDS which were then tied in the middle. The skin was then closed using ted and the ports were then also closed using ted. All counts were reported as correct by the nurses. The patient was then extubated and transferred to the PACU in stable condition. Aydin Franco DO Franklyn Pearson MD LUISA
--- NOTE | 2019-01-19 08:06 | CP.PCM.PN ---
Subjective - Date & Time of Evaluation Date of Evaluation: 01/19/19 Time of Evaluation: 08:10 - Subjective Subjective: General Surgery Note for Dr. Tinoco Patient seen and examined at bedside. No acute event overnight. Patient is s/p diagnostic laparoscopy converted to open with repair of enterotomy POD#4. Patient reports pain has improved. NGT with 400cc/24hrs of dark brown output. Admits flatus but denies BM. She has been ambulating intermittently. Denies fever/chills, chest pain, SOB, nausea/vomiting, diarrhea, urinary symptoms. Objective - Vital Signs/Intake and Output Vital Signs (last 24 hours): Temp Pulse Resp BP Pulse Ox 98.1 F 94 H 18 112/75 96 01/19/19 00:07 01/19/19 00:07 01/19/19 00:07 01/19/19 00:07 01/19/19 00:07 Intake and Output: 01/19/19 01/19/19 06:59 18:59 Intake Total 2400 1710 Output Total 950 1400 Balance 1450 310 - Medications Medications: Current Medications Benzocaine/Menthol (Cepacol Sore Throat) 1 rebecca PO Q3 PRN PRN Reason: Sore Throat Last Admin: 01/17/19 17:18 Dose: 1 rebecca Clozapine (Clozaril) 300 mg PO Q12H [facility] Last Admin: 01/18/19 21:26 Dose: 300 mg Enoxaparin Sodium (Lovenox) 40 mg SC DAILY [facility]; Protocol Last Admin: 01/18/19 10:53 Dose: 40 mg Lactated Ringer's (Lactated Ringer's) 1,000 mls @ 150 mls/hr IV .Q6H40M [facility] Last Admin: 01/19/19 04:12 Dose: 150 mls/hr Potassium Chloride (Potassium Chloride 10 Meq/100 Ml) 100 mls @ 100 mls/hr IVPB Q1 [facility] Stop: 01/19/19 12:59 Ketorolac Tromethamine (Toradol) 30 mg IVP Q6 PRN PRN Reason: Pain, moderate (4-7) Last Admin: 01/18/19 21:22 Dose: 30 mg Lidocaine (Lidoderm) 1 ea TD DAILY [facility] Last Admin: 01/18/19 10:53 Dose: 1 ea Mirtazapine (Remeron) 30 mg PO HS [facility] Last Admin: 01/18/19 21:26 Dose: 30 mg Morphine Sulfate (Morphine) 2 mg IVP Q4 PRN PRN Reason: Pain, severe (8-10) Last Admin: 01/18/19 14:29 Dose: 2 mg Ondansetron HCl (Zofran Inj) 4 mg IVP Q6 PRN PRN Reason: Nausea/Vomiting Pantoprazole Sodium (Protonix Inj) 40 mg IVP DAILY [facility] Last Admin: 01/18/19 10:54 Dose: 40 mg - Labs Labs: 01/18/19 06:40 01/18/19 06:40 PT 12.2 Seconds (9.8-13.1) 01/15/19 05:20 INR 1.1 01/15/19 05:20 APTT 27.7 Seconds (25.6-37.1) 01/15/19 05:20 - Constitutional Appears: Well, Non-toxic, No Acute Distress - Head Exam Head Exam: ATRAUMATIC, NORMOCEPHALIC - GI/Abdominal Exam GI & Abdominal Exam: Soft, Tenderness, Normal Bowel Sounds Additional comments: tenderness at the surgical sites - Psychiatric Exam Psychiatric exam: Normal Affect, Normal Mood Assessment and Plan - Assessment and Plan (Free Text) Assessment: 38 F who presented with SBO s/p diagnostic laparoscopy converted to open with repair of enterotomy POD#4 Plan: -NPO -NGT to low intermittent suction -becker candy and gum for bowel stimulation -Pain control -Anti-emetics PRN -Protonix/Lovenox -Strict I's & O's -Replete electrolytes as needed -Continue home meds -Serial abd exams -Monitor for bowel function -PT/OT -Encourage OOB to chair, ambulation, IS -Further recommendations as per Dr. Islas PGY1
--- NOTE | 2019-01-19 08:36 | PN ---
DATE: 01/16/2019 SUBJECTIVE: This is a pleasant 38-year-old female who presented with past medical history of cerebral palsy, schizophrenia, anxiety, who presented to [facility] ED with abdominal pain for four days. The patient received a CT scan which showed dilated small loops of bowel with a clear transition point. The only past surgical history was a cholecystectomy. Decision was made to take her for an exploratory laparoscopy for an adhesive band that would explain her small bowel obstruction. Aydin Franco DO
[2019-01-19] MEDS: Lidocaine 5% Patch TD SCH (08:56)
[2019-01-19] MEDS: Enoxaparin 40 mg Syringe SC SCH (08:56)
[2019-01-19] MEDS: Potassium CL 10mEq/100ml 100 ML IVPB SCH ×4 (12:40→14:03)
[2019-01-20] MEDS: Benzocaine/Menthol (Cepacol) Lozenge PO PRN (00:02)
[2019-01-20] MEDS: Lactated Ringer's 1,000 ML IV SCH ×5 (00:13→23:15)
--- NOTE | 2019-01-20 08:43 | CP.PCM.PN ---
Subjective - Date & Time of Evaluation Date of Evaluation: 01/20/19 Time of Evaluation: 08:43 - Subjective Subjective: General Surgery Progress Note for Dr. Valencia This 38F was seen and examine this AM at bedside however she appeared lethargic. Per nurse pt received ativan last night at midnight due to a panic attack. NGT in place 1250cc bilious output over the last 24 hours and 450cc over the last 12. Pt reports flatus denies BM. She is ambulating, however complains of incisional pain during ambulation. Objective - Vital Signs/Intake and Output Vital Signs (last 24 hours): Temp Pulse Resp BP Pulse Ox 97.9 F 93 H 18 116/81 95 01/20/19 07:49 01/20/19 07:49 01/20/19 07:49 01/20/19 07:49 01/20/19 07:49 Intake and Output: 01/20/19 01/20/19 06:59 18:59 Output Total 450 Balance -450 - Medications Medications: Current Medications Benzocaine/Menthol (Cepacol Sore Throat) 1 rebecca PO Q3 PRN PRN Reason: Sore Throat Last Admin: 01/17/19 17:18 Dose: 1 rebecca Clozapine (Clozaril) 300 mg PO Q12H [facility] Last Admin: 01/19/19 22:19 Dose: 300 mg Enoxaparin Sodium (Lovenox) 40 mg SC DAILY [facility]; Protocol Last Admin: 01/19/19 08:56 Dose: 40 mg Lactated Ringer's (Lactated Ringer's) 1,000 mls @ 150 mls/hr IV .Q6H40M [facility] Last Admin: 01/20/19 05:26 Dose: Not Given Ketorolac Tromethamine (Toradol) 30 mg IVP Q6 PRN PRN Reason: Pain, moderate (4-7) Last Admin: 01/19/19 16:00 Dose: 30 mg Lidocaine (Lidoderm) 1 ea TD DAILY [facility] Last Admin: 01/19/19 08:56 Dose: 1 ea Mirtazapine (Remeron) 30 mg PO HS [facility] Last Admin: 01/19/19 22:19 Dose: 30 mg Morphine Sulfate (Morphine) 2 mg IVP Q4 PRN PRN Reason: Pain, severe (8-10) Last Admin: 01/18/19 14:29 Dose: 2 mg Ondansetron HCl (Zofran Inj) 4 mg IVP Q6 PRN PRN Reason: Nausea/Vomiting Pantoprazole Sodium (Protonix Inj) 40 mg IVP DAILY [facility] Last Admin: 01/19/19 08:55 Dose: 40 mg - Labs Labs: 01/18/19 06:40 01/18/19 06:40 PT 12.2 Seconds (9.8-13.1) 01/15/19 05:20 INR 1.1 01/15/19 05:20 APTT 27.7 Seconds (25.6-37.1) 01/15/19 05:20 - Constitutional Appears: Non-toxic, No Acute Distress - Head Exam Head Exam: ATRAUMATIC, NORMOCEPHALIC - Eye Exam Eye Exam: EOMI, Normal appearance - ENT Exam ENT Exam: Mucous Membranes Moist Additional comments: NGT in place - Respiratory Exam Respiratory Exam: NORMAL BREATHING PATTERN - Cardiovascular Exam Cardiovascular Exam: +S1, +S2 - GI/Abdominal Exam GI & Abdominal Exam: Soft. absent: Distended, Firm, Guarding, Rigid, Tenderness - Neurological Exam Neurological Exam: Alert, Awake - Psychiatric Exam Psychiatric exam: Normal Affect, Normal Mood - Skin Skin Exam: Dry, Intact Assessment and Plan - Assessment and Plan (Free Text) Assessment: 38F with SBO s/p exploratory laparoscopy converted to open enterotomy repair NGT to suction Monitor bowel status Remove NGT erythromycin NPO Ambulate Continue medical managment per primary team Labs ordered will followup and replete electrolytes as needed. Further recs per Dr. Erik Franco PGY3
[2019-01-20 09:15] LABS: BASO % 0.5 % (0.0-2.0); EOS # 0.5 K/uL (0.0-0.7); EOS % 6.8 % (0.0-4.0); HEMOGLOBIN 12.1 g/dL (12.0-16.0); LYMPH % 13.8 % (20.0-40.0); MEAN CELL VOLUME 87.4 fl (81.0-99.0); MEAN CORPUSCULAR HEMOGLOBIN 29.9 pg (27.0-31.0); MEAN CORPUSCULAR HGB CONC 34.3 g/dL (33.0-37.0); MEAN PLATELET VOLUME 7.7 fl (7.2-11.7); MONO # 0.5 K/uL (0.0-0.8); MONO % 6.9 % (0.0-10.0); RBC 4.04 Mil/uL (3.80-5.20); RED CELL DISTRIBUTION WIDTH 12.9 % (11.5-14.5)
[2019-01-20 09:23] LABS: ALB/GLOB RATIO 1.2 (1.0-2.1); ALBUMIN 3.1 g/dL (3.5-5.0); ALT/SGPT 49 U/L (9-52); AST/SGOT 25 U/L (14-36); BLOOD UREA NITROGEN 2 mg/dl (7-17); CALCIUM 8.8 mg/dL (8.4-10.2); GFR NON-AFRICAN AMERICAN > 60
[2019-01-20] MEDS: Erythromycin Stearat 250 mg Tab PO SCH ×2 (11:08→16:54)
[2019-01-20] MEDS: Lidocaine 5% Patch TD SCH (11:09)
[2019-01-20] MEDS: Enoxaparin 40 mg Syringe SC SCH (11:11)
[2019-01-21] MEDS: Erythromycin Stearat 250 mg Tab PO SCH ×2 (01:30→08:55)
[2019-01-21] MEDS: Lactated Ringer's 1,000 ML IV SCH ×5 (02:37→22:47)
[2019-01-21 07:08] LABS: BASO % 0.2 % (0.0-2.0); EOS # 0.4 K/uL (0.0-0.7); EOS % 2.7 % (0.0-4.0); HEMOGLOBIN 13.4 g/dL (12.0-16.0); LYMPH # 1.1 K/uL (1.0-4.3); LYMPH % 7.1 % (20.0-40.0); MEAN CORPUSCULAR HEMOGLOBIN 29.6 pg (27.0-31.0); MEAN CORPUSCULAR HGB CONC 34.1 g/dL (33.0-37.0); MEAN PLATELET VOLUME 8.1 fl (7.2-11.7); MONO # 1.1 K/uL (0.0-0.8); MONO % 7.2 % (0.0-10.0); NEUT # 12.4 K/uL (1.8-7.0); NEUT % 82.8 % (50.0-75.0); NRBC % 0.1 % (0.0-0.0); PLATELET COUNT 395 K/uL (130-400); RBC 4.51 Mil/uL (3.80-5.20); RED CELL DISTRIBUTION WIDTH 12.8 % (11.5-14.5)
[2019-01-21 07:34] LABS: ALB/GLOB RATIO 1.2 (1.0-2.1); ALBUMIN 3.2 g/dL (3.5-5.0); ALT/SGPT 41 U/L (9-52); AST/SGOT 26 U/L (14-36); BLOOD UREA NITROGEN 2 mg/dl (7-17); CALCIUM 9.2 mg/dL (8.4-10.2); GFR NON-AFRICAN AMERICAN > 60
[2019-01-21 08:26] LABS: BANDS 2 % (0-2); BASOPHIL 1 % (0-2); EOSINOPHIL 2 % (0-7); LYMPHOCYTE 7 % (20-50); MONOCYTE 4 % (0-10); NEUTROPHIL 83 % (42-75); PLATELET ESTIMATE NORMAL (NORMAL); REACTIVE LYMPHOCYTES 1 % (0-0); TOTAL CELLS COUNTED 100
[2019-01-21] MEDS: Enoxaparin 40 mg Syringe SC SCH (08:55)
[2019-01-21] MEDS: Lidocaine 5% Patch TD SCH (08:55)
[2019-01-21] MEDS: Potassium Chloride 20 mEq 100 ML IV SCH ×3 (09:42→14:49)
--- NOTE | 2019-01-21 10:53 | CP.PCM.PN ---
<MistyRadhika santillan - Last Filed: 01/22/19 08:49> Subjective - Date & Time of Evaluation Date of Evaluation: 01/21/19 Time of Evaluation: 10:53 - Subjective Subjective: General Surgery Progress Note for Dr. Valencia 38 y/o female patient was seen and examine this AM at bedside. Patient was resting comfortably in bed. NGT was removed yesterday. Pt tolerated a clear liquid diet yesterday, however complained of one episode of nausea and vomiting overnight. Pt reports flatus denies BM. She is ambulating, however complains of incisional pain during ambulation. Objective - Vital Signs/Intake and Output Vital Signs (last 24 hours): Temp Pulse Resp BP Pulse Ox 98.1 F 101 H 18 109/74 94 L 01/21/19 08:17 01/21/19 08:17 01/21/19 08:17 01/21/19 08:17 01/21/19 08:17 - Medications Medications: Current Medications Benzocaine/Menthol (Cepacol Sore Throat) 1 rebecca PO Q3 PRN PRN Reason: Sore Throat Last Admin: 01/17/19 17:18 Dose: 1 rebecca Clozapine (Clozaril) 300 mg PO Q12H [facility] Last Admin: 01/21/19 09:00 Dose: 300 mg Enoxaparin Sodium (Lovenox) 40 mg SC DAILY [facility]; Protocol Last Admin: 01/21/19 08:55 Dose: 40 mg Erythromycin (Erythocin) 250 mg PO Q8H [facility]; Protocol Last Admin: 01/21/19 08:55 Dose: 250 mg Lactated Ringer's (Lactated Ringer's) 1,000 mls @ 150 mls/hr IV .Q6H40M [facility] Last Admin: 01/21/19 08:56 Dose: Not Given Potassium Chloride (Potassium Chloride 20 Meq/100 Ml) 100 mls @ 50 mls/hr IV Q2 [facility] Stop: 01/21/19 15:59 Last Admin: 01/21/19 09:42 Dose: 50 mls/hr Ketorolac Tromethamine (Toradol) 30 mg IVP Q6 PRN PRN Reason: Pain, moderate (4-7) Last Admin: 01/21/19 10:38 Dose: 30 mg Lidocaine (Lidoderm) 1 ea TD DAILY [facility] Last Admin: 01/21/19 08:55 Dose: 1 ea Mirtazapine (Remeron) 30 mg PO HS [facility] Last Admin: 01/20/19 22:02 Dose: 30 mg Ondansetron HCl (Zofran Inj) 4 mg IVP Q6 PRN PRN Reason: Nausea/Vomiting Last Admin: 01/21/19 03:25 Dose: 4 mg Pantoprazole Sodium (Protonix Inj) 40 mg IVP DAILY [facility] Last Admin: 01/21/19 08:54 Dose: 40 mg - Labs Labs: 01/21/19 06:15 01/21/19 06:15 PT 12.2 Seconds (9.8-13.1) 01/15/19 05:20 INR 1.1 01/15/19 05:20 APTT 27.7 Seconds (25.6-37.1) 01/15/19 05:20 - Constitutional Appears: Well, Non-toxic, No Acute Distress - Head Exam Head Exam: ATRAUMATIC, NORMOCEPHALIC - Eye Exam Eye Exam: Normal appearance - ENT Exam ENT Exam: Mucous Membranes Moist - Respiratory Exam Respiratory Exam: Clear to Ausculation Bilateral, NORMAL BREATHING PATTERN. absent: Accessory Muscle Use, Respiratory Distress - GI/Abdominal Exam GI & Abdominal Exam: Distended (mildly), Soft, Normal Bowel Sounds. absent: Firm, Guarding - Neurological Exam Neurological Exam: Alert, Awake, Oriented x3 - Psychiatric Exam Psychiatric exam: Normal Affect, Normal Mood - Skin Skin Exam: Dry Assessment and Plan - Assessment and Plan (Free Text) Assessment: 38 y/o female with SBO s/p exploratory laparoscopy converted to open enterotomy repair Plan: Monitor bowel status Erythromycin Clear Liquid Diet Ambulate Follow up Urinalysis Ordered Incentive Spirometry Continue medical managment per primary team Labs ordered will followup and replete electrolytes as needed. Further recs per Dr. Erik Jay PGY1 <Franklyn Valencia - Last Filed: 01/23/19 12:08> Objective - Vital Signs/Intake and Output Vital Signs (last 24 hours): Temp Pulse Resp BP Pulse Ox 98.0 F 87 19 119/85 96 01/23/19 07:54 01/23/19 07:54 01/23/19 07:54 01/23/19 07:54 01/23/19 07:54 Intake and Output: 01/23/19 01/23/19 06:59 18:59 Intake Total 1840 Output Total 250 Balance 1590 - Medications Medications: Current Medications Benzocaine/Menthol (Cepacol Sore Throat) 1 rebecca PO Q3 PRN PRN Reason: Sore Throat Last Admin: 01/21/19 16:55 Dose: 1 rebecca Clozapine (Clozaril) 300 mg PO Q12H [facility] Last Admin: 01/23/19 09:29 Dose: Not Given Enoxaparin Sodium (Lovenox) 40 mg SC DAILY [facility]; Protocol Last Admin: 01/22/19 11:09 Dose: 40 mg Lactated Ringer's (Lactated Ringer's) 1,000 mls @ 150 mls/hr IV .Q6H40M [facility] Last Admin: 01/23/19 08:02 Dose: 150 mls/hr Lidocaine (Lidoderm) 1 ea TD DAILY [facility] Last Admin: 01/22/19 11:07 Dose: 1 ea Mirtazapine (Remeron) 30 mg PO HS [facility] Last Admin: 01/22/19 21:21 Dose: 30 mg Ondansetron HCl (Zofran Inj) 4 mg IVP Q6 PRN PRN Reason: Nausea/Vomiting Last Admin: 01/21/19 03:25 Dose: 4 mg Pantoprazole Sodium (Protonix Inj) 40 mg IVP DAILY [facility] Last Admin: 01/22/19 11:10 Dose: 40 mg Phenol/Menthol (Phenaseptic 1.4% Throat [place]) 1 spry MT Q2 PRN PRN Reason: Sore Throat - Labs Labs: 01/23/19 05:45 01/23/19 05:45 PT 21.4 Seconds (9.8-13.1) H 01/23/19 05:45 INR 1.9 01/23/19 05:45 APTT 27.7 Seconds (25.6-37.1) 01/15/19 05:20 Assessment and Plan - Assessment and Plan (Free Text) Plan: chromogranin A elevated, consistent with neuroendocrine tumor. Will need further evaluation to determine if and where resides in GI tract All medical record entries made by the resident were at my direction. I have reviewed the chart and agree that the record accurately reflects my personal performance of the history, physical exam, medical decision making. I have also personally directed, reviewed, and agree with the resident disposition.
[2019-01-21 12:05] LABS: SQUAMOUS EPITHIAL 6 /hpf (0-5); URINE AMORPHOUS SEDIMENT RARE /ul (<OCC); URINE BILIRUBIN NEGATIVE (NEGATIVE); URINE BLOOD LARGE (NEGATIVE); URINE CLARITY CLOUDY (Clear); URINE COLOR YELLOW (YELLOW); URINE GLUCOSE (UA) NEG (NEGATIVE); URINE LEUKOCYTE ESTERASE TRACE Leu/uL (Negative); URINE PROTEIN 30 mg/dL (NEGATIVE); URINE UROBILINOGEN 0.2-1.0 mg/dL (0.2-1.0)
[2019-01-21] MEDS ORDERED: Chlorhexidine Gluconate 1 APPL/PKT TP ONE (16:34)
[2019-01-21] MEDS: Benzocaine/Menthol (Cepacol) Lozenge PO PRN (16:55)
[2019-01-21] MEDS ORDERED: Phenol 1.4% Throat Spray MT PRN (16:57)
[2019-01-22 07:23] LABS: BASO % 0.6 % (0.0-2.0); EOS # 0.3 K/uL (0.0-0.7); EOS % 3.8 % (0.0-4.0); HEMOGLOBIN 12.5 g/dL (12.0-16.0); LYMPH # 1.6 K/uL (1.0-4.3); LYMPH % 21.1 % (20.0-40.0); MEAN CELL VOLUME 88.9 fl (81.0-99.0); MEAN CORPUSCULAR HEMOGLOBIN 29.6 pg (27.0-31.0); MEAN CORPUSCULAR HGB CONC 33.3 g/dL (33.0-37.0); MEAN PLATELET VOLUME 7.4 fl (7.2-11.7); MONO # 0.7 K/uL (0.0-0.8); MONO % 9.6 % (0.0-10.0); NEUT # 4.9 K/uL (1.8-7.0); NEUT % 64.9 % (50.0-75.0); NRBC % 0.1 % (0.0-0.0); RBC 4.21 Mil/uL (3.80-5.20); RED CELL DISTRIBUTION WIDTH 13.1 % (11.5-14.5); WHITE BLOOD COUNT 7.6 K/uL (4.8-10.8)
[2019-01-22 07:36] LABS: ALB/GLOB RATIO 1.2 (1.0-2.1); ALT/SGPT 46 U/L (9-52); AST/SGOT 40 U/L (14-36); BLOOD UREA NITROGEN 3 mg/dl (7-17); CALCIUM 8.8 mg/dL (8.4-10.2); GFR NON-AFRICAN AMERICAN > 60
[2019-01-22] MEDS: Enoxaparin 40 mg Syringe SC SCH ×2 (08:44→11:09)
[2019-01-22] MEDS: Lidocaine 5% Patch TD SCH ×2 (08:44→11:07)
--- NOTE | 2019-01-22 08:54 | CP.PCM.PN ---
<Radhika Jay - Last Filed: 01/22/19 14:13> Subjective - Date & Time of Evaluation Date of Evaluation: 01/22/19 Time of Evaluation: 08:49 - Subjective Subjective: General Surgery Progress Note for Dr. Valencia 38 y/o female patient was seen and examined at bedside. Patient denies any nausea or vomiting overnight. Patient denies passing flatus or BM. Patient continues to complain of incisional pain during ambulation. NGT in place. Objective - Vital Signs/Intake and Output Vital Signs (last 24 hours): Temp Pulse Resp BP Pulse Ox 99.5 F 87 19 119/81 98 01/22/19 07:59 01/22/19 07:59 01/22/19 07:59 01/22/19 07:59 01/22/19 07:59 - Medications Medications: Current Medications Benzocaine/Menthol (Cepacol Sore Throat) 1 rebecca PO Q3 PRN PRN Reason: Sore Throat Last Admin: 01/21/19 16:55 Dose: 1 rebecca Clozapine (Clozaril) 300 mg PO Q12H [facility] Last Admin: 01/21/19 22:56 Dose: 300 mg Enoxaparin Sodium (Lovenox) 40 mg SC DAILY [facility]; Protocol Last Admin: 01/22/19 08:44 Dose: Not Given Lactated Ringer's (Lactated Ringer's) 1,000 mls @ 150 mls/hr IV .Q6H40M [facility] Last Admin: 01/21/19 22:47 Dose: 150 mls/hr Ketorolac Tromethamine (Toradol) 30 mg IVP Q6 PRN PRN Reason: Pain, moderate (4-7) Last Admin: 01/21/19 10:38 Dose: 30 mg Lidocaine (Lidoderm) 1 ea TD DAILY [facility] Last Admin: 01/22/19 08:44 Dose: Not Given Mirtazapine (Remeron) 30 mg PO HS [facility] Last Admin: 01/21/19 22:57 Dose: 30 mg Ondansetron HCl (Zofran Inj) 4 mg IVP Q6 PRN PRN Reason: Nausea/Vomiting Last Admin: 01/21/19 03:25 Dose: 4 mg Pantoprazole Sodium (Protonix Inj) 40 mg IVP DAILY [facility] Last Admin: 01/22/19 08:45 Dose: Not Given Phenol/Menthol (Phenaseptic 1.4% Throat [place]) 1 spry MT Q2 PRN PRN Reason: Sore Throat - Labs Labs: 01/22/19 07:05 01/22/19 07:05 PT 12.2 Seconds (9.8-13.1) 01/15/19 05:20 INR 1.1 01/15/19 05:20 APTT 27.7 Seconds (25.6-37.1) 01/15/19 05:20 - Constitutional Appears: Well, No Acute Distress - Head Exam Head Exam: ATRAUMATIC, NORMOCEPHALIC - Eye Exam Eye Exam: Normal appearance - ENT Exam ENT Exam: Mucous Membranes Moist - Respiratory Exam Respiratory Exam: Clear to Ausculation Bilateral, NORMAL BREATHING PATTERN. absent: Accessory Muscle Use, Respiratory Distress - Cardiovascular Exam Cardiovascular Exam: REGULAR RHYTHM, +S1, +S2 - GI/Abdominal Exam GI & Abdominal Exam: Soft, Normal Bowel Sounds. absent: Distended, Firm, Guarding, Rigid - Neurological Exam Neurological Exam: Alert, Awake, Oriented x3 - Psychiatric Exam Psychiatric exam: Normal Affect - Skin Skin Exam: Dry, Warm Assessment and Plan - Assessment and Plan (Free Text) Assessment: 38 y/o female with SBO s/p exploratory laparoscopy converted to open enterotomy repair Plan: Monitor bowel status NPO at this time Continue IV fluids Encourage Ambulation Continue Incentive Spirometry Continue medical management per primary team Labs ordered will followup and replete electrolytes as needed. Further recs per Dr. Erik Jay PGY1 <Franklyn Valencia - Last Filed: 01/23/19 12:03> Objective - Vital Signs/Intake and Output Vital Signs (last 24 hours): Temp Pulse Resp BP Pulse Ox 98.0 F 87 19 119/85 96 01/23/19 07:54 01/23/19 07:54 01/23/19 07:54 01/23/19 07:54 01/23/19 07:54 Intake and Output: 01/23/19 01/23/19 06:59 18:59 Intake Total 1840 Output Total 250 Balance 1590 - Medications Medications: Current Medications Benzocaine/Menthol (Cepacol Sore Throat) 1 rebecca PO Q3 PRN PRN Reason: Sore Throat Last Admin: 01/21/19 16:55 Dose: 1 rebecca Clozapine (Clozaril) 300 mg PO Q12H [facility] Last Admin: 01/23/19 09:29 Dose: Not Given Enoxaparin Sodium (Lovenox) 40 mg SC DAILY [facility]; Protocol Last Admin: 01/22/19 11:09 Dose: 40 mg Lactated Ringer's (Lactated Ringer's) 1,000 mls @ 150 mls/hr IV .Q6H40M [facility] Last Admin: 01/23/19 08:02 Dose: 150 mls/hr Lidocaine (Lidoderm) 1 ea TD DAILY [facility] Last Admin: 01/22/19 11:07 Dose: 1 ea Mirtazapine (Remeron) 30 mg PO HS [facility] Last Admin: 01/22/19 21:21 Dose: 30 mg Ondansetron HCl (Zofran Inj) 4 mg IVP Q6 PRN PRN Reason: Nausea/Vomiting Last Admin: 01/21/19 03:25 Dose: 4 mg Pantoprazole Sodium (Protonix Inj) 40 mg IVP DAILY [facility] Last Admin: 01/22/19 11:10 Dose: 40 mg Phenol/Menthol (Phenaseptic 1.4% Throat [place]) 1 spry MT Q2 PRN PRN Reason: Sore Throat - Labs Labs: 01/23/19 05:45 01/23/19 05:45 PT 21.4 Seconds (9.8-13.1) H 01/23/19 05:45 INR 1.9 01/23/19 05:45 APTT 27.7 Seconds (25.6-37.1) 01/15/19 05:20 Assessment and Plan - Assessment and Plan (Free Text) Plan: All medical record entries made by the resident were at my direction. I have reviewed the chart and agree that the record accurately reflects my personal performance of the history, physical exam, medical decision making. I have also personally directed, reviewed, and agree with the resident disposition.
[2019-01-22] MEDS: Lactated Ringer's 1,000 ML IV SCH ×3 (12:45→21:37)
[2019-01-22] MEDS: Potassium CL 10mEq/100ml 100 ML IVPB SCH ×4 (12:46→21:22)
--- NOTE | 2019-01-22 14:53 | CP.PCM.CON ---
<Viktor Temple - Last Filed: 01/22/19 16:43> History of Present Illness - History of Present Illness History of Present Illness: PGY-4 GI Fellow Consult Note Pt is a 38 yo F with h/o Cerebral Palsy, Schizophrenia, Anxiety who presented on 01/14/19 with days of abdominal pain, bilious emesis, without bowel movement nor flatus. She was admitted for SBO after CT scan revealed likely transition point in RLQ. On 01/15/19 she underwent ex lap for suspected adhesions but was converted to open after iatrogenic enterotomy when friable bowel was encountered. Enterotomy was repairs and during running of the bowels, small palpable masses were encountered. No obvious adhesions/explanation for SBO encountered. Therefore, GI was ultimately consulted for luminal examination via surgically assisted push enteroscopy. Pt states that since surgery, she has been having intermitent persistent abd pain, mostly around incision sites. She also stated that she has not had BM nor flatus. However, after discussion with surgical team, they report that patient had initially symptomatically improved post-procedure but then symptoms later recurred. NG was replaced with ~700 mL of bilious output currently. Otherwise, she states that normally she struggles with constipation intermittenty, sometime going up to 2 weeks without a bowel movement. She reports using milk of magnesia to help move her bowels. When she does move her bowels, she denies and melena nor hematochezia. She reported about 5 lb weight loss recently related to symptoms and the recent of a loved one. Otherwise, she denied any dysphagia, F/C, CP/SOB, N/V/D. 12 point ROS negative other than stated above Endos: No prior endoscopic evaluations MHx: See above SurgHx: Cholecystectomy and Open laparatomy on 01/15/19 described above Meds: Reviewed in chart FamHx: No h/o GI problems nor malignancy SocHx: Denied x 3; states she with mother currently with plans to return to school All: Haloperidol, lithium, latex Past Patient History - Past Medical History & Family History Past Medical History?: Yes - Past Social History Alcohol: None - CARDIAC Hx Cardiac Disorders: No - PULMONARY Hx Respiratory Disorders: No - NEUROLOGICAL Hx Seizures: Yes - HEENT Hx HEENT Problems: No - RENAL Hx Chronic Kidney Disease: No - ENDOCRINE/METABOLIC Hx Endocrine Disorders: No - HEMATOLOGICAL/ONCOLOGICAL Hx Blood Disorders: No - INTEGUMENTARY Hx Dermatological Problems: No - MUSCULOSKELETAL/RHEUMATOLOGICAL Hx Musculoskeletal Disorders: No Hx Falls: No - GASTROINTESTINAL Hx Gastrointestinal Disorders: No - GENITOURINARY/GYNECOLOGICAL Hx Genitourinary Disorders: No - PSYCHIATRIC Hx Substance Use: No - SURGICAL HISTORY Hx Cholecystectomy: Yes - ANESTHESIA Hx Anesthesia: Yes Hx Anesthesia Reactions: No Hx Malignant Hyperthermia: No Has any member of the family had a problem w/ anesthesia?: No Meds Allergies/Adverse Reactions: Allergies Allergy/AdvReac Type Severity Reaction Status Date / Time haloperidol [From Haldol] Allergy RASH Verified 01/14/19 19:41 latex Allergy RASH Verified 01/14/19 19:41 lithium Allergy RASH Verified 01/14/19 19:41 - Medications Medications: Current Medications Benzocaine/Menthol (Cepacol Sore Throat) 1 rebecca PO Q3 PRN PRN Reason: Sore Throat Last Admin: 01/21/19 16:55 Dose: 1 rebecca Clozapine (Clozaril) 300 mg PO Q12H [facility] Last Admin: 01/22/19 11:07 Dose: 300 mg Enoxaparin Sodium (Lovenox) 40 mg SC DAILY [facility]; Protocol Last Admin: 01/22/19 11:09 Dose: 40 mg Lactated Ringer's (Lactated Ringer's) 1,000 mls @ 150 mls/hr IV .Q6H40M [facility] Last Admin: 01/22/19 12:45 Dose: 150 mls/hr Ketorolac Tromethamine (Toradol) 30 mg IVP Q6 PRN PRN Reason: Pain, moderate (4-7) Last Admin: 01/21/19 10:38 Dose: 30 mg Lidocaine (Lidoderm) 1 ea TD DAILY [facility] Last Admin: 01/22/19 11:07 Dose: 1 ea Mirtazapine (Remeron) 30 mg PO HS [facility] Last Admin: 01/21/19 22:57 Dose: 30 mg Ondansetron HCl (Zofran Inj) 4 mg IVP Q6 PRN PRN Reason: Nausea/Vomiting Last Admin: 01/21/19 03:25 Dose: 4 mg Pantoprazole Sodium (Protonix Inj) 40 mg IVP DAILY [facility] Last Admin: 01/22/19 11:10 Dose: 40 mg Phenol/Menthol (Phenaseptic 1.4% Throat [place]) 1 spry MT Q2 PRN PRN Reason: Sore Throat Physical Exam - Constitutional Appears: Well, No Acute Distress - Head Exam Head Exam: ATRAUMATIC, NORMAL INSPECTION - ENT Exam ENT Exam: Mucous Membranes Dry. absent: Mucous Membranes Moist Additional comments: NG in place with ~ 700 mL bilious output - Respiratory Exam Respiratory Exam: NORMAL BREATHING PATTERN. absent: Accessory Muscle Use - Cardiovascular Exam Cardiovascular Exam: REGULAR RHYTHM, RRR - GI/Abdominal Exam GI & Abdominal Exam: Diminished Bowel Sounds, Hypoactive Bowel Sounds, Soft, Tenderness. absent: Distended, Firm, Guarding, Hernia, Organomegaly, Pulsatile Mass, Rigid Additional comments: mildly ttp w/vol guardingin epigastrum, sugical sites with ted in place without drainage nor erythema - Extremities Exam Extremities exam: Positive for: normal inspection, pedal edema (trace edema in bilat LEs) - Neurological Exam Neurological exam: Alert, CN II-XII Intact - Psychiatric Exam Psychiatric exam: Normal Affect, Normal Mood - Skin Skin Exam: Normal Color, Warm Results - Vital Signs Recent Vital Signs: Last Vital Signs Temp 99.5 F 01/22/19 07:59 Pulse 87 01/22/19 07:59 Resp 19 01/22/19 07:59 BP 119/81 01/22/19 07:59 Pulse Ox 98 01/22/19 07:59 - Labs Result Diagrams: 01/22/19 07:05 01/22/19 07:05 Labs: Laboratory Results - last 24 hr 01/22/19 01/22/19 07:05 07:05 WBC 7.6 RBC 4.21 Hgb 12.5 Hct 37.4 MCV 88.9 MCH 29.6 MCHC 33.3 RDW 13.1 Plt Count 313 MPV 7.4 Neut % (Auto) 64.9 Lymph % (Auto) 21.1 Patrick % (Auto) 9.6 Eos % (Auto) 3.8 Baso % (Auto) 0.6 Neut # (Auto) 4.9 Lymph # (Auto) 1.6 Patrick # (Auto) 0.7 Eos # (Auto) 0.3 Baso # (Auto) 0.0 Sodium 142 Potassium 3.4 L Chloride 109 H Carbon Dioxide 22 Anion Gap 14 BUN 3 L Creatinine 0.5 L Est GFR ( Amer) > 60 Est GFR (Non-Af Amer) > 60 Random Glucose 88 Calcium 8.8 Phosphorus 3.3 Magnesium 1.8 Total Bilirubin 0.3 AST 40 H D ALT 46 Alkaline Phosphatase 136 H D Total Protein 5.6 L Albumin 3.0 L Globulin 2.6 Albumin/Globulin Ratio 1.2 Assessment & Plan - Assessment and Plan (Free Text) Assessment: 38 yo WF with CP, h/o cholecystectomy, Anxiety and schizophrenia present with SBO found to have possible intra-luminal masses in small bowel. # ?Small Bowel Masses: Palpated during ex-lap. No overt masses seen on CT; repeat CT with possible intussusception. Per discussion with surgical team, mass(es) felt to be about 30-50 cm distal to ligament of Treitz. Chromogranin elevated at 204, though no classic carcinoid symptoms. # SBO: s/p open ex lap due to iatrogenic enterotomy during laproscopy, s/p enterotomy repair. Plan: - Plan for Push Enteroscopy with surgical assistance on 01/23/19 --- Consent obtained from mother after risk, benefits, alternatives were discussed - NPO - NG, IVF per Primary/Surgery - Optimize lytes - Check Urine 5-HIAA (24hr) - Check labs in AM - Hold enoxaparin on 01/23 Pt seen and examined with Dr. Barker; please see attestation for further recs/changes. <Becki Barker - Last Filed: 01/22/19 16:57> Meds - Medications Medications: Current Medications Benzocaine/Menthol (Cepacol Sore Throat) 1 rebecca PO Q3 PRN PRN Reason: Sore Throat Last Admin: 01/21/19 16:55 Dose: 1 rebecca Clozapine (Clozaril) 300 mg PO Q12H [facility] Last Admin: 01/22/19 11:07 Dose: 300 mg Enoxaparin Sodium (Lovenox) 40 mg SC DAILY [facility]; Protocol Last Admin: 01/22/19 11:09 Dose: 40 mg Lactated Ringer's (Lactated Ringer's) 1,000 mls @ 150 mls/hr IV .Q6H40M [facility] Last Admin: 01/22/19 12:45 Dose: 150 mls/hr Lidocaine (Lidoderm) 1 ea TD DAILY [facility] Last Admin: 01/22/19 11:07 Dose: 1 ea Mirtazapine (Remeron) 30 mg PO HS [facility] Last Admin: 01/21/19 22:57 Dose: 30 mg Ondansetron HCl (Zofran Inj) 4 mg IVP Q6 PRN PRN Reason: Nausea/Vomiting Last Admin: 01/21/19 03:25 Dose: 4 mg Pantoprazole Sodium (Protonix Inj) 40 mg IVP DAILY [facility] Last Admin: 01/22/19 11:10 Dose: 40 mg Phenol/Menthol (Phenaseptic 1.4% Throat [place]) 1 spry MT Q2 PRN PRN Reason: Sore Throat Results - Vital Signs Recent Vital Signs: Last Vital Signs Temp 98.2 F 01/22/19 16:16 Pulse 93 H 01/22/19 16:16 Resp 18 01/22/19 16:16 BP 112/74 01/22/19 16:16 Pulse Ox 96 01/22/19 16:16 - Labs Result Diagrams: 01/22/19 07:05 01/22/19 07:05 Labs: Laboratory Results - last 24 hr 01/22/19 01/22/19 07:05 07:05 WBC 7.6 RBC 4.21 Hgb 12.5 Hct 37.4 MCV 88.9 MCH 29.6 MCHC 33.3 RDW 13.1 Plt Count 313 MPV 7.4 Neut % (Auto) 64.9 Lymph % (Auto) 21.1 Patrick % (Auto) 9.6 Eos % (Auto) 3.8 Baso % (Auto) 0.6 Neut # (Auto) 4.9 Lymph # (Auto) 1.6 Patrick # (Auto) 0.7 Eos # (Auto) 0.3 Baso # (Auto) 0.0 Sodium 142 Potassium 3.4 L Chloride 109 H Carbon Dioxide 22 Anion Gap 14 BUN 3 L Creatinine 0.5 L Est GFR ( Amer) > 60 Est GFR (Non-Af Amer) > 60 Random Glucose 88 Calcium 8.8 Phosphorus 3.3 Magnesium 1.8 Total Bilirubin 0.3 AST 40 H D ALT 46 Alkaline Phosphatase 136 H D Total Protein 5.6 L Albumin 3.0 L Globulin 2.6 Albumin/Globulin Ratio 1.2 Attending/Attestation - Attestation I have personally seen and examined this patient.: Yes I have fully participated in the care of the patient.: Yes I have reviewed all pertinent clinical information: Yes Notes (Text): 01/22/19 16:52 I have seen the examined the pt with the GI fellow. In brief, this is a 38 yo F with cerebral palsy, schizophrenia, anxiety, chronic constipation requiring daily Milk of Magnesia and s/p lap cholecystectomy p/w few days of acute LLQ abdominal pain associated with bilious emesis, no BMs or flatus. Found to have possible SBO on CT and taken to the OR on 01/15/19 (Dr. Tinoco), s/p enterotomy and not found to have specific transition point, but with possible mid-jejunal masses on palpation. Interventional GI consulted for push enteroscopy with laparoscopic assistance. PE: General: NAD, NGT in place with bilious fluid Abd: soft, mildly tender in LLQ LE: no edema b/l CT abd/pelvis: possible intussusception in LLQ, but no obvious mass -remain npo -keep ngt to low intermittent suction -check am labs -plan for push enteroscopy in the OR tmrw with Dr. Tinoco 01/22/19 16:56
[2019-01-23] MEDS: Lactated Ringer's 1,000 ML IV SCH ×4 (01:41→21:53)
[2019-01-23] MEDS: Potassium CL 10mEq/100ml 100 ML IVPB SCH (01:41)
[2019-01-23 06:32] LABS: INR 1.9; PROTHROMBIN TIME 21.4 Seconds (9.8-13.1)
[2019-01-23 06:33] LABS: BASO % 0.4 % (0.0-2.0); EOS # 0.3 K/uL (0.0-0.7); EOS % 3.6 % (0.0-4.0); HEMOGLOBIN 11.9 g/dL (12.0-16.0); LYMPH # 1.6 K/uL (1.0-4.3); LYMPH % 21.9 % (20.0-40.0); MEAN CELL VOLUME 87.5 fl (81.0-99.0); MEAN CORPUSCULAR HGB CONC 34.2 g/dL (33.0-37.0); MEAN PLATELET VOLUME 7.9 fl (7.2-11.7); MONO # 0.6 K/uL (0.0-0.8); MONO % 8.6 % (0.0-10.0); NEUT # 4.8 K/uL (1.8-7.0); NEUT % 65.5 % (50.0-75.0); NRBC % 0.2 % (0.0-0.0); RBC 3.96 Mil/uL (3.80-5.20); WHITE BLOOD COUNT 7.4 K/uL (4.8-10.8)
[2019-01-23 06:48] LABS: ALB/GLOB RATIO 1.2 (1.0-2.1); ALBUMIN 2.8 g/dL (3.5-5.0); ALT/SGPT 52 U/L (9-52); AST/SGOT 39 U/L (14-36); BLOOD UREA NITROGEN 2 mg/dl (7-17); CALCIUM 8.8 mg/dL (8.4-10.2); GFR NON-AFRICAN AMERICAN > 60
--- NOTE | 2019-01-23 08:54 | CP.PCM.PN ---
<Radhika Jay - Last Filed: 01/26/19 11:00> Subjective - Date & Time of Evaluation Date of Evaluation: 01/23/19 Time of Evaluation: 08:49 - Subjective Subjective: General Surgery progress not for Dr. Tinoco, 38 y/o female patient seen and examined at bedside. Patient s/p lap cholecystectomy. Patient continues to complain of abdominal pain, denies BMs or flatus. Patient NGT in place with ~ 850cc bilious output Objective - Vital Signs/Intake and Output Vital Signs (last 24 hours): Temp Pulse Resp BP Pulse Ox 98.0 F 87 19 119/85 96 01/23/19 07:54 01/23/19 07:54 01/23/19 07:54 01/23/19 07:54 01/23/19 07:54 Intake and Output: 01/23/19 01/23/19 06:59 18:59 Intake Total 1840 Output Total 250 Balance 1590 - Medications Medications: Current Medications Benzocaine/Menthol (Cepacol Sore Throat) 1 rebecca PO Q3 PRN PRN Reason: Sore Throat Last Admin: 01/21/19 16:55 Dose: 1 rebecca Clozapine (Clozaril) 300 mg PO Q12H [facility] Last Admin: 01/22/19 21:21 Dose: 300 mg Enoxaparin Sodium (Lovenox) 40 mg SC DAILY [facility]; Protocol Last Admin: 01/22/19 11:09 Dose: 40 mg Lactated Ringer's (Lactated Ringer's) 1,000 mls @ 150 mls/hr IV .Q6H40M [facility] Last Admin: 01/23/19 08:02 Dose: 150 mls/hr Lidocaine (Lidoderm) 1 ea TD DAILY [facility] Last Admin: 01/22/19 11:07 Dose: 1 ea Mirtazapine (Remeron) 30 mg PO HS [facility] Last Admin: 01/22/19 21:21 Dose: 30 mg Ondansetron HCl (Zofran Inj) 4 mg IVP Q6 PRN PRN Reason: Nausea/Vomiting Last Admin: 01/21/19 03:25 Dose: 4 mg Pantoprazole Sodium (Protonix Inj) 40 mg IVP DAILY [facility] Last Admin: 01/22/19 11:10 Dose: 40 mg Phenol/Menthol (Phenaseptic 1.4% Throat [place]) 1 spry MT Q2 PRN PRN Reason: Sore Throat - Labs Labs: 01/23/19 05:45 01/23/19 05:45 PT 21.4 Seconds (9.8-13.1) H 01/23/19 05:45 INR 1.9 01/23/19 05:45 APTT 27.7 Seconds (25.6-37.1) 01/15/19 05:20 - Constitutional Appears: Well, No Acute Distress - Head Exam Head Exam: ATRAUMATIC, NORMOCEPHALIC - ENT Exam ENT Exam: Mucous Membranes Dry - Respiratory Exam Respiratory Exam: NORMAL BREATHING PATTERN. absent: Accessory Muscle Use, Respiratory Distress - Cardiovascular Exam Cardiovascular Exam: REGULAR RHYTHM, RRR - GI/Abdominal Exam GI & Abdominal Exam: Soft, Tenderness, Diminished Bowel Sounds. absent: Distended, Firm, Guarding, Hernia Additional comments: surgical site with ted in place - Neurological Exam Neurological Exam: Alert, Awake - Psychiatric Exam Psychiatric exam: Normal Affect - Skin Skin Exam: Dry Assessment and Plan - Assessment and Plan (Free Text) Assessment: 38 y/o female with SBO s/p exploratory laparoscopy converted to open enterotomy repair. Patient to go to the OR today for push enteroscopy with laproscopic assist Plan: Push Enteroscopy with surgical assistance today with Dr. Barker/Dr. Valencia NPO at this time Continue IV Fluids Continue Incentive Spirometry Encourage Ambulation further recs per Dr. Islas PGY1 <Franklyn Valencia - Last Filed: 01/30/19 10:26> Objective - Vital Signs/Intake and Output Vital Signs (last 24 hours): Temp Pulse Resp BP Pulse Ox 99.0 F 91 H 19 113/78 97 01/26/19 08:35 01/26/19 08:35 01/26/19 08:35 01/26/19 08:35 01/26/19 08:35 Intake and Output: 01/26/19 01/26/19 06:59 18:59 Intake Total 1550 Output Total 200 Balance 1350 - Medications Medications: Current Medications Acetaminophen (Tylenol 650 Mg Supp) 650 mg [place] Q6 PRN PRN Reason: Pain, moderate (4-7) Benzocaine/Menthol (Cepacol Sore Throat) 1 rebecca PO Q3 PRN PRN Reason: Sore Throat Last Admin: 01/21/19 16:55 Dose: 1 rebecca Clozapine (Clozaril) 300 mg PO Q12H [facility] Last Admin: 01/26/19 11:02 Dose: 300 mg Docusate Sodium (Colace Liquid) 100 mg NG BID [facility] Enoxaparin Sodium (Lovenox) 40 mg SC DAILY [facility]; Protocol Last Admin: 01/26/19 11:04 Dose: 40 mg Hydromorphone HCl (Dilaudid) 0.5 mg IVP Q2 PRN PRN Reason: Pain, severe (8-10) Last Admin: 01/25/19 03:10 Dose: 0.5 mg Sodium Chloride 35 meq/ Sodium Phosphate 20 mmole/ Potassium Acetate 45 meq/ Magnesium Sulfate 7 meq/ Calcium Gluconate 4.5 meq/Multivitamins/Vitamin C 10 ml/Chromium/Copper/Manganese/Zinc 3 ml/ Amino Acids 1,062.3182 mls @ 83 mls/hr IV .[id number] ONE Stop: 01/27/19 02:47 Last Admin: 01/26/19 14:46 Dose: 83 mls/hr Sodium Chloride 35 meq/ Sodium Phosphate 20 mmole/ Potassium Acetate 45 meq/ Magnesium Sulfate 7 meq/ Calcium Gluconate 4.5 meq/ Amino Acids 1,049.3182 mls @ 83 mls/hr IV .[id number] ONE Stop: 01/27/19 14:38 Potassium Phosphate 30 mmole/ (Sodium Chloride) 260 mls @ 65 mls/hr IV ONCE ONE Stop: 01/26/19 17:59 Ketorolac Tromethamine (Toradol) 15 mg IVP Q6 PRN PRN Reason: Pain, moderate (4-7) Last Admin: 01/26/19 11:00 Dose: 15 mg Lidocaine (Lidoderm) 1 ea TD DAILY [facility] Last Admin: 01/26/19 11:02 Dose: 1 ea Mirtazapine (Remeron) 30 mg PO HS [facility] Last Admin: 01/25/19 22:02 Dose: 30 mg Pantoprazole Sodium (Protonix Inj) 40 mg IVP DAILY [facility] Last Admin: 01/26/19 11:04 Dose: 40 mg Phenol/Menthol (Phenaseptic 1.4% Throat [place]) 1 spry MT Q2 PRN PRN Reason: Sore Throat - Labs Labs: 01/26/19 08:45 01/26/19 08:45 PT 21.4 Seconds (9.8-13.1) H 01/23/19 05:45 INR 1.9 01/23/19 05:45 APTT 27.7 Seconds (25.6-37.1) 01/15/19 05:20 Assessment and Plan - Assessment and Plan (Free Text) Plan: All medical record entries made by the resident were at my direction and personally directed by me. I have reviewed the chart and agree that the record accurately reflects my personal performance of the history, physical exam, medical decision making. I have also personally directed, reviewed, and agree with the resident note.
[2019-01-23] MEDS: Lidocaine 5% Patch TD SCH (14:00)
[2019-01-23] MEDS ORDERED: Bupivacaine 0.5% Inj(30mL) ONE (15:02)
[2019-01-23] MEDS ORDERED: Midazolam 2 MG/2 ML VIAL ONE (15:06)
[2019-01-23] MEDS ORDERED: Propofol 10 mg/ml Inj (20 ML) ONE (15:06)
[2019-01-23] MEDS ORDERED: Lidocaine 1% 5ml Abboject ONE (15:07)
[2019-01-23] MEDS ORDERED: Neostigmine 1:1000 (1 mg/ml) Inj ONE (15:07)
[2019-01-23] MEDS ORDERED: Rocuronium 10 mg/ml (5 ml) ONE ×2 (15:07→17:09)
[2019-01-23] MEDS ORDERED: Lidocaine 4% (Laryng-O-Jet) Kit MM ONE (15:07)
[2019-01-23] MEDS ORDERED: Succinylcholine Chloride 20 mg/ml Syr (5 ml) IV ONE (15:08)
[2019-01-23] MEDS ORDERED: Sodium Chloride 0.9% 1,000 ML IV ONE (15:35)
[2019-01-23] MEDS ORDERED: ePHEDrine 50 mg/ml Inj ONE (17:46)
[2019-01-23] MEDS ORDERED: Lactated Ringer's 1,000 ML IV ONE (18:15)
--- NOTE | 2019-01-23 18:53 | PCM.SURG1 ---
Surgeon's Initial Post Op Note - Surgeon's Notes Surgeon: Dr. Vlaencia Behavioral Specialist: Dr. Franco, Dr. Zamudio Type of Anesthesia: General Endo Anesthesia Administered By: Dr. Gorman Pre-Operative Diagnosis: Small Bowel Obstruction Operative Findings: See operative dictation Post-Operative Diagnosis: Same Operation Performed: Laparoscopic assisted push endoscopy, Laparoscopic lysis of adhesions, Open lysis of adhesions, Small Bowel resection with primary side to side anastamoses, incidental appendectomy Specimen/Specimens Removed: Small bowel, appendix Estimated Blood Loss: EBL {In ML}: 25 Blood Products Given: N/A Drains Used: No Drains Post-Op Condition: Good Date of Surgery/Procedure: 01/23/19 Time of Surgery/Procedure: 18:53
[2019-01-23] MEDS ORDERED: HYDROmorphone 0.5 mg/0.5 ml ISec IVP PRN (18:54)
[2019-01-23] MEDS ORDERED: HYDROmorphone 0.5 mg/0.5 ml ISec ONE ×5 (19:40→20:48)
[2019-01-23] MEDS: HYDROmorphone 0.5 mg/0.5 ml ISec IVP PRN ×6 (19:40→22:18)
[2019-01-24] MEDS: HYDROmorphone 0.5 mg/0.5 ml ISec IVP PRN ×6 (01:18→15:39)
[2019-01-24] MEDS ORDERED: Lactated Ringer's 1,000 ML IV SCH (04:45)
[2019-01-24] MEDS: Lactated Ringer's 1,000 ML IV SCH ×2 (06:14→16:28)
--- NOTE | 2019-01-24 06:27 | CP.PCM.PN ---
<Aydin Franco - Last Filed: 01/24/19 06:27> Subjective - Date & Time of Evaluation Date of Evaluation: 01/24/19 Time of Evaluation: 06:25 - Subjective Subjective: General Surgery Progress Note for Dr. Valencia This 38F was seen and examined this Am t bedside. Overnight the patients pain was not well controlled so the interval of her pain medication was shortened and she did better. NGT output since the OR has been 100cc of bilious ouput which is down significantly from pre OR output.. She denies flatus or BM. Objective - Vital Signs/Intake and Output Vital Signs (last 24 hours): Temp Pulse Resp BP Pulse Ox 97.9 F 105 H 18 103/70 98 01/24/19 04:31 01/24/19 04:31 01/24/19 04:31 01/24/19 04:31 01/24/19 04:31 Intake and Output: 01/23/19 01/24/19 18:59 06:59 Intake Total 2050 100 Output Total 1300 Balance 750 100 - Medications Medications: Current Medications Acetaminophen (Tylenol 650 Mg Supp) 650 mg [place] Q6 PRN PRN Reason: Pain, moderate (4-7) Benzocaine/Menthol (Cepacol Sore Throat) 1 rebecca PO Q3 PRN PRN Reason: Sore Throat Last Admin: 01/21/19 16:55 Dose: 1 rebecca Clozapine (Clozaril) 300 mg PO Q12H [facility] Last Admin: 01/23/19 21:52 Dose: 300 mg Enoxaparin Sodium (Lovenox) 40 mg SC DAILY [facility]; Protocol Last Admin: 01/22/19 11:09 Dose: 40 mg Hydromorphone HCl (Dilaudid) 0.5 mg IVP Q2 PRN PRN Reason: Pain, severe (8-10) Last Admin: 01/24/19 03:27 Dose: 0.5 mg Lactated Ringer's (Lactated Ringer's) 1,000 mls @ 150 mls/hr IV .Q6H40M [facility] Last Admin: 01/23/19 08:02 Dose: 150 mls/hr Lactated Ringer's (Lactated Ringer's) 1,000 mls @ 100 mls/hr IV .Q10H [facility] Last Admin: 01/24/19 06:14 Dose: 100 mls/hr Ketorolac Tromethamine (Toradol) 15 mg IVP Q6 PRN PRN Reason: Pain, moderate (4-7) Lidocaine (Lidoderm) 1 ea TD DAILY [facility] Last Admin: 01/22/19 11:07 Dose: 1 ea Mirtazapine (Remeron) 30 mg PO HS [facility] Last Admin: 01/23/19 21:52 Dose: 30 mg Ondansetron HCl (Zofran Inj) 4 mg IVP Q6 PRN PRN Reason: Nausea/Vomiting Last Admin: 01/21/19 03:25 Dose: 4 mg Pantoprazole Sodium (Protonix Inj) 40 mg IVP DAILY [facility] Last Admin: 01/22/19 11:10 Dose: 40 mg Phenol/Menthol (Phenaseptic 1.4% Throat [place]) 1 spry MT Q2 PRN PRN Reason: Sore Throat - Labs Labs: 01/23/19 05:45 01/23/19 05:45 PT 21.4 Seconds (9.8-13.1) H 01/23/19 05:45 INR 1.9 01/23/19 05:45 APTT 27.7 Seconds (25.6-37.1) 01/15/19 05:20 - Constitutional Appears: Non-toxic, No Acute Distress - Head Exam Head Exam: ATRAUMATIC, NORMOCEPHALIC - Eye Exam Eye Exam: EOMI, Normal appearance - ENT Exam ENT Exam: Mucous Membranes Moist - Respiratory Exam Respiratory Exam: NORMAL BREATHING PATTERN - Cardiovascular Exam Cardiovascular Exam: +S1, +S2 - GI/Abdominal Exam GI & Abdominal Exam: Soft. absent: Guarding, Tenderness Additional comments: Dressing clean dry and intact - Neurological Exam Neurological Exam: Alert, Awake - Psychiatric Exam Psychiatric exam: Normal Affect, Normal Mood - Skin Skin Exam: Dry, Intact Assessment and Plan - Assessment and Plan (Free Text) Assessment: 38F with SBO s/p small bowel resection POD#1 F/U NGT output so far minima NPO possible clears later today Pain Control Patient with low grade tachycardia continue to monitor F/U AM labs F/U urin seratonin assay F/U Pathology Further recs per Dr. Erik Franco PGY3 <Franklyn Valencia - Last Filed: 01/30/19 10:15> Subjective - Subjective Subjective: All medical record entries made by the resident were at my direction. I have reviewed the chart and agree that the record accurately reflects my personal performance of the history, physical exam, medical decision making. I have also personally examined the patient, reviewed, and agree the resident note. Objective - Vital Signs/Intake and Output Vital Signs (last 24 hours): Temp Pulse Resp BP Pulse Ox 99.0 F 91 H 19 113/78 97 01/26/19 08:35 01/26/19 08:35 01/26/19 08:35 01/26/19 08:35 01/26/19 08:35 Intake and Output: 01/26/19 01/26/19 06:59 18:59 Intake Total 1550 Output Total 200 Balance 1350 - Medications Medications: Current Medications Acetaminophen (Tylenol 650 Mg Supp) 650 mg [place] Q6 PRN PRN Reason: Pain, moderate (4-7) Benzocaine/Menthol (Cepacol Sore Throat) 1 rebecca PO Q3 PRN PRN Reason: Sore Throat Last Admin: 01/21/19 16:55 Dose: 1 rebecca Clozapine (Clozaril) 300 mg PO Q12H [facility] Last Admin: 01/26/19 11:02 Dose: 300 mg Docusate Sodium (Colace Liquid) 100 mg NG BID [facility] Enoxaparin Sodium (Lovenox) 40 mg SC DAILY [facility]; Protocol Last Admin: 01/26/19 11:04 Dose: 40 mg Hydromorphone HCl (Dilaudid) 0.5 mg IVP Q2 PRN PRN Reason: Pain, severe (8-10) Last Admin: 01/25/19 03:10 Dose: 0.5 mg Sodium Chloride 35 meq/ Sodium Phosphate 20 mmole/ Potassium Acetate 45 meq/ Magnesium Sulfate 7 meq/ Calcium Gluconate 4.5 meq/Multivitamins/Vitamin C 10 ml/Chromium/Copper/Manganese/Zinc 3 ml/ Amino Acids 1,062.3182 mls @ 83 mls/hr IV .[id number] ONE Stop: 01/27/19 02:47 Last Admin: 01/26/19 14:46 Dose: 83 mls/hr Sodium Chloride 35 meq/ Sodium Phosphate 20 mmole/ Potassium Acetate 45 meq/ Magnesium Sulfate 7 meq/ Calcium Gluconate 4.5 meq/ Amino Acids 1,049.3182 mls @ 83 mls/hr IV .[id number] ONE Stop: 01/27/19 14:38 Potassium Phosphate 30 mmole/ (Sodium Chloride) 260 mls @ 65 mls/hr IV ONCE ONE Stop: 01/26/19 17:59 Potassium Chloride (Potassium Chloride 10 Meq/100 Ml) 100 mls @ 100 mls/hr IVPB Q1 [facility] Stop: 01/26/19 17:59 Ketorolac Tromethamine (Toradol) 15 mg IVP Q6 PRN PRN Reason: Pain, moderate (4-7) Last Admin: 01/26/19 11:00 Dose: 15 mg Lidocaine (Lidoderm) 1 ea TD DAILY [facility] Last Admin: 01/26/19 11:02 Dose: 1 ea Mirtazapine (Remeron) 30 mg PO HS [facility] Last Admin: 01/25/19 22:02 Dose: 30 mg Pantoprazole Sodium (Protonix Inj) 40 mg IVP DAILY [facility] Last Admin: 01/26/19 11:04 Dose: 40 mg Phenol/Menthol (Phenaseptic 1.4% Throat [place]) 1 spry MT Q2 PRN PRN Reason: Sore Throat - Labs Labs: 01/26/19 08:45 01/26/19 08:45 PT 21.4 Seconds (9.8-13.1) H 01/23/19 05:45 INR 1.9 01/23/19 05:45 APTT 27.7 Seconds (25.6-37.1) 01/15/19 05:20 Assessment and Plan - Assessment and Plan (Free Text) Assessment: All medical record entries made by the resident were at my direction and personally directed by me. I have reviewed the chart and agree that the record accurately reflects my personal performance of the history, physical exam, medical decision making. I have also personally directed, reviewed, and agree with the resident note.
[2019-01-24 08:24] LABS: BASO # 0.1 K/uL (0.0-0.2); BASO % 0.4 % (0.0-2.0); EOS % 0.1 % (0.0-4.0); HEMOGLOBIN 13.2 g/dL (12.0-16.0); LYMPH # 0.9 K/uL (1.0-4.3); LYMPH % 3.8 % (20.0-40.0); MEAN CORPUSCULAR HEMOGLOBIN 29.2 pg (27.0-31.0); MEAN CORPUSCULAR HGB CONC 32.8 g/dL (33.0-37.0); MEAN PLATELET VOLUME 8.6 fl (7.2-11.7); MONO # 1.2 K/uL (0.0-0.8); MONO % 4.9 % (0.0-10.0); NEUT # 21.4 K/uL (1.8-7.0); NEUT % 90.8 % (50.0-75.0); NRBC % 0.1 % (0.0-0.0); PLATELET COUNT 322 K/uL (130-400); RED CELL DISTRIBUTION WIDTH 13.4 % (11.5-14.5); WHITE BLOOD COUNT 23.6 K/uL (4.8-10.8)
[2019-01-24 08:29] LABS: ALB/GLOB RATIO 1.2 (1.0-2.1); ALBUMIN 3.1 g/dL (3.5-5.0); ALT/SGPT 72 U/L (9-52); AST/SGOT 71 U/L (14-36); BLOOD UREA NITROGEN 2 mg/dl (7-17); CALCIUM 8.7 mg/dL (8.4-10.2); GFR NON-AFRICAN AMERICAN > 60
[2019-01-24] MEDS: Lidocaine 5% Patch TD SCH (10:00)
[2019-01-24 10:19] LABS: BANDS 2 % (0-2); BASOPHIL 1 % (0-2); LYMPHOCYTE 5 % (20-50); MONOCYTE 4 % (0-10); MYELOCYTE 1 % (0-0); NEUTROPHIL 87 % (42-75); PLATELET ESTIMATE NORMAL (NORMAL); TOTAL CELLS COUNTED 100
[2019-01-24 10:20] LABS: TOXIC GRANULATION PRESENT
--- NOTE | 2019-01-24 18:04 | CP.PCM.PN ---
<Maame Caballero - Last Filed: 01/24/19 18:07> Subjective - Date & Time of Evaluation Date of Evaluation: 01/24/19 Time of Evaluation: 12:30 - Subjective Subjective: PGY 5 GI Follow-up Pt seen and examined bedside NG inplace, minimal oupt complaining of abd pain diffuse No BM minimal flatus ROS: 12 point ROS conducted, neg other than above Objective - Vital Signs/Intake and Output Vital Signs (last 24 hours): Temp Pulse Resp BP Pulse Ox 97.3 F L 103 H 20 105/70 96 01/24/19 16:50 01/24/19 16:50 01/24/19 16:50 01/24/19 16:50 01/24/19 16:50 Intake and Output: 01/24/19 01/24/19 06:59 18:59 Intake Total 2300 Output Total 2180 Balance 120 - Medications Medications: Current Medications Acetaminophen (Tylenol 650 Mg Supp) 650 mg [place] Q6 PRN PRN Reason: Pain, moderate (4-7) Benzocaine/Menthol (Cepacol Sore Throat) 1 rebecca PO Q3 PRN PRN Reason: Sore Throat Last Admin: 01/21/19 16:55 Dose: 1 rebecca Clozapine (Clozaril) 300 mg PO Q12H [facility] Last Admin: 01/24/19 10:03 Dose: 300 mg Enoxaparin Sodium (Lovenox) 40 mg SC DAILY [facility]; Protocol Last Admin: 01/22/19 11:09 Dose: 40 mg Hydromorphone HCl (Dilaudid) 0.5 mg IVP Q2 PRN PRN Reason: Pain, severe (8-10) Last Admin: 01/24/19 15:39 Dose: 0.5 mg Lactated Ringer's (Lactated Ringer's) 1,000 mls @ 150 mls/hr IV .Q6H40M [facility] Last Admin: 01/23/19 08:02 Dose: 150 mls/hr Lactated Ringer's (Lactated Ringer's) 1,000 mls @ 100 mls/hr IV .Q10H [facility] Last Admin: 01/24/19 16:28 Dose: 100 mls/hr Ketorolac Tromethamine (Toradol) 15 mg IVP Q6 PRN PRN Reason: Pain, moderate (4-7) Lidocaine (Lidoderm) 1 ea TD DAILY [facility] Last Admin: 01/24/19 10:00 Dose: 1 ea Mirtazapine (Remeron) 30 mg PO HS [facility] Last Admin: 01/23/19 21:52 Dose: 30 mg Ondansetron HCl (Zofran Inj) 4 mg IVP Q6 PRN PRN Reason: Nausea/Vomiting Last Admin: 01/21/19 03:25 Dose: 4 mg Pantoprazole Sodium (Protonix Inj) 40 mg IVP DAILY [facility] Last Admin: 01/24/19 10:00 Dose: 40 mg Phenol/Menthol (Phenaseptic 1.4% Throat [place]) 1 spry MT Q2 PRN PRN Reason: Sore Throat - Labs Labs: 01/24/19 07:00 01/24/19 07:00 PT 21.4 Seconds (9.8-13.1) H 01/23/19 05:45 INR 1.9 01/23/19 05:45 APTT 27.7 Seconds (25.6-37.1) 01/15/19 05:20 - Constitutional Appears: Non-toxic, No Acute Distress - Head Exam Head Exam: ATRAUMATIC, NORMOCEPHALIC - Eye Exam Eye Exam: Normal appearance - ENT Exam ENT Exam: Mucous Membranes Moist, Normal Exam - Neck Exam Neck Exam: Normal Inspection - Respiratory Exam Respiratory Exam: Clear to Ausculation Bilateral, NORMAL BREATHING PATTERN. absent: Decreased Breath Sounds, Rales, Wheezes, Respiratory Distress - Cardiovascular Exam Cardiovascular Exam: REGULAR RHYTHM, +S1, +S2 - GI/Abdominal Exam GI & Abdominal Exam: Soft, Tenderness (epigastric and perumbilical), Hypoactive Bowel Sounds. absent: Distended, Firm, Guarding, Rigid - Extremities Exam Extremities Exam: absent: Joint Swelling, Pedal Edema - Neurological Exam Neurological Exam: Alert, Awake, Oriented x3 - Psychiatric Exam Psychiatric exam: Normal Affect, Normal Mood - Skin Skin Exam: Dry, Intact, Normal Color, Warm Assessment and Plan - Assessment and Plan (Free Text) Assessment: 38 yo WF with CP, h/o cholecystectomy, Anxiety and schizophrenia present with SBO. S/P adhesion lysis, surgically assisted push enteroscopy, Open lysis of adhesions, Small Bowel resection with primary side to side anastamoses, incidental appendectomy. SBO s/p as above ABd pain 2/2 above Post-op Ileus Plan: -NG management and diet as per general surgery -awaiting path results -24hr 5-HIAA urine pending, collected -pain management as per gen surgery -recommend serial abd exams -may benefit from OOB to chair D/W Dr. Key <Bennett Key - Last Filed: 01/25/19 16:55> Objective - Vital Signs/Intake and Output Vital Signs (last 24 hours): Temp Pulse Resp BP Pulse Ox 98.2 F 77 20 149/66 94 L 01/25/19 08:27 01/25/19 08:27 01/25/19 08:27 01/25/19 08:27 01/25/19 08:27 Intake and Output: 01/25/19 01/25/19 06:59 18:59 Intake Total 1200 Output Total 700 Balance 500 - Medications Medications: Current Medications Acetaminophen (Tylenol 650 Mg Supp) 650 mg [place] Q6 PRN PRN Reason: Pain, moderate (4-7) Benzocaine/Menthol (Cepacol Sore Throat) 1 rebecca PO Q3 PRN PRN Reason: Sore Throat Last Admin: 01/21/19 16:55 Dose: 1 rebecca Clozapine (Clozaril) 300 mg PO Q12H [facility] Last Admin: 01/25/19 09:18 Dose: 300 mg Enoxaparin Sodium (Lovenox) 40 mg SC DAILY [facility]; Protocol Last Admin: 01/25/19 09:19 Dose: 40 mg Hydromorphone HCl (Dilaudid) 0.5 mg IVP Q2 PRN PRN Reason: Pain, severe (8-10) Last Admin: 01/25/19 03:10 Dose: 0.5 mg Potassium Chloride/Dextrose/Sod Cl (Potassium Chl 20 Meq In D5-Ns) 1,000 mls @ 125 mls/hr IV .Q8H [facility] Stop: 01/26/19 09:17 Last Admin: 01/25/19 10:30 Dose: 125 mls/hr Ketorolac Tromethamine (Toradol) 15 mg IVP Q6 PRN PRN Reason: Pain, moderate (4-7) Last Admin: 01/24/19 20:02 Dose: 15 mg Lidocaine (Lidoderm) 1 ea TD DAILY [facility] Last Admin: 01/25/19 09:18 Dose: 1 ea Mirtazapine (Remeron) 30 mg PO HS [facility] Last Admin: 01/24/19 22:58 Dose: 30 mg Pantoprazole Sodium (Protonix Inj) 40 mg IVP DAILY [facility] Last Admin: 01/25/19 09:19 Dose: 40 mg Phenol/Menthol (Phenaseptic 1.4% Throat [place]) 1 spry MT Q2 PRN PRN Reason: Sore Throat - Labs Labs: 01/25/19 06:30 01/25/19 06:30 PT 21.4 Seconds (9.8-13.1) H 01/23/19 05:45 INR 1.9 01/23/19 05:45 APTT 27.7 Seconds (25.6-37.1) 01/15/19 05:20 Attending/Attestation - Attestation I have personally seen and examined this patient.: Yes I have fully participated in the care of the patient.: Yes I have reviewed all pertinent clinical information, including history, physical exam and plan: Yes Notes (Text): 01/25/19 16:55 Late entry The pt was seen and examined on Saturday. Chart was reviewed. Findings assessment and recommendations were discussed with Dr. Caballero and documented above.
[2019-01-25] MEDS: HYDROmorphone 0.5 mg/0.5 ml ISec IVP PRN (03:10)
[2019-01-25] MEDS: Lactated Ringer's 1,000 ML IV SCH (03:13)
--- NOTE | 2019-01-25 08:31 | CP.PCM.PN ---
<Ellis Adler Alex - Last Filed: 01/25/19 08:28> Subjective - Date & Time of Evaluation Date of Evaluation: 01/25/19 Time of Evaluation: 08:28 - Subjective Subjective: Gen Surg: Dr Tinoco Pt S&E. POD#1 s/p ex-lap w/ push enteroscopy and SBR. Pt resting comfortably. NAEO. NGT w/ 800 cc billious output. Has not yet been OOB, pain well controlled. Making adequate urine 3.3L > 24 hours. No flatus yet. Objective - Vital Signs/Intake and Output Vital Signs (last 24 hours): Temp Pulse Resp BP Pulse Ox 98.2 F 77 20 149/66 94 L 01/25/19 08:27 01/25/19 08:27 01/25/19 08:27 01/25/19 08:27 01/25/19 08:27 - Medications Medications: Current Medications Acetaminophen (Tylenol 650 Mg Supp) 650 mg [place] Q6 PRN PRN Reason: Pain, moderate (4-7) Benzocaine/Menthol (Cepacol Sore Throat) 1 rebecca PO Q3 PRN PRN Reason: Sore Throat Last Admin: 01/21/19 16:55 Dose: 1 rebecca Clozapine (Clozaril) 300 mg PO Q12H [facility] Last Admin: 01/24/19 23:19 Dose: 300 mg Enoxaparin Sodium (Lovenox) 40 mg SC DAILY [facility]; Protocol Last Admin: 01/22/19 11:09 Dose: 40 mg Hydromorphone HCl (Dilaudid) 0.5 mg IVP Q2 PRN PRN Reason: Pain, severe (8-10) Last Admin: 01/25/19 03:10 Dose: 0.5 mg Lactated Ringer's (Lactated Ringer's) 1,000 mls @ 150 mls/hr IV .Q6H40M [facility] Last Admin: 01/23/19 08:02 Dose: 150 mls/hr Lactated Ringer's (Lactated Ringer's) 1,000 mls @ 100 mls/hr IV .Q10H [facility] Last Admin: 01/25/19 03:13 Dose: 100 mls/hr Ketorolac Tromethamine (Toradol) 15 mg IVP Q6 PRN PRN Reason: Pain, moderate (4-7) Last Admin: 01/24/19 20:02 Dose: 15 mg Lidocaine (Lidoderm) 1 ea TD DAILY [facility] Last Admin: 01/24/19 10:00 Dose: 1 ea Mirtazapine (Remeron) 30 mg PO HS [facility] Last Admin: 01/24/19 22:58 Dose: 30 mg Pantoprazole Sodium (Protonix Inj) 40 mg IVP DAILY [facility] Last Admin: 01/24/19 10:00 Dose: 40 mg Phenol/Menthol (Phenaseptic 1.4% Throat [place]) 1 spry MT Q2 PRN PRN Reason: Sore Throat - Labs Labs: 01/24/19 07:00 01/24/19 07:00 PT 21.4 Seconds (9.8-13.1) H 01/23/19 05:45 INR 1.9 01/23/19 05:45 APTT 27.7 Seconds (25.6-37.1) 01/15/19 05:20 - Constitutional Appears: Non-toxic, No Acute Distress - ENT Exam ENT Exam: Mucous Membranes Dry - Respiratory Exam Respiratory Exam: absent: Respiratory Distress - Cardiovascular Exam Cardiovascular Exam: REGULAR RHYTHM. absent: Tachycardia - GI/Abdominal Exam GI & Abdominal Exam: Distended, Soft, Tenderness (post-op and appropriate) - Neurological Exam Neurological Exam: Alert, Awake - Skin Skin Exam: Normal Color Assessment and Plan - Assessment and Plan (Free Text) Assessment: 38F POD#1 s/p ex-lap w/ SBR Plan: cont NGT to LIS cont IVF replace electrolytes PRN ok to D/C ram once 24 hour collection is completed OOB to chair incentive spirometry d/w Dr Escobar, PGY4 <Franklyn Valencia N - Last Filed: 01/30/19 10:22> Objective - Vital Signs/Intake and Output Vital Signs (last 24 hours): Temp Pulse Resp BP Pulse Ox 99.0 F 91 H 19 113/78 97 01/26/19 08:35 01/26/19 08:35 01/26/19 08:35 01/26/19 08:35 01/26/19 08:35 Intake and Output: 01/26/19 01/26/19 06:59 18:59 Intake Total 1550 Output Total 200 Balance 1350 - Medications Medications: Current Medications Acetaminophen (Tylenol 650 Mg Supp) 650 mg [place] Q6 PRN PRN Reason: Pain, moderate (4-7) Benzocaine/Menthol (Cepacol Sore Throat) 1 rebecca PO Q3 PRN PRN Reason: Sore Throat Last Admin: 01/21/19 16:55 Dose: 1 rebecca Clozapine (Clozaril) 300 mg PO Q12H [facility] Last Admin: 01/26/19 11:02 Dose: 300 mg Docusate Sodium (Colace Liquid) 100 mg NG BID [facility] Enoxaparin Sodium (Lovenox) 40 mg SC DAILY [facility]; Protocol Last Admin: 01/26/19 11:04 Dose: 40 mg Hydromorphone HCl (Dilaudid) 0.5 mg IVP Q2 PRN PRN Reason: Pain, severe (8-10) Last Admin: 01/25/19 03:10 Dose: 0.5 mg Sodium Chloride 35 meq/ Sodium Phosphate 20 mmole/ Potassium Acetate 45 meq/ Magnesium Sulfate 7 meq/ Calcium Gluconate 4.5 meq/Multivitamins/Vitamin C 10 ml/Chromium/Copper/Manganese/Zinc 3 ml/ Amino Acids 1,062.3182 mls @ 83 mls/hr IV .[id number] ONE Stop: 01/27/19 02:47 Last Admin: 01/26/19 14:46 Dose: 83 mls/hr Sodium Chloride 35 meq/ Sodium Phosphate 20 mmole/ Potassium Acetate 45 meq/ Magnesium Sulfate 7 meq/ Calcium Gluconate 4.5 meq/ Amino Acids 1,049.3182 mls @ 83 mls/hr IV .[id number] ONE Stop: 01/27/19 14:38 Potassium Phosphate 30 mmole/ (Sodium Chloride) 260 mls @ 65 mls/hr IV ONCE ONE Stop: 01/26/19 17:59 Ketorolac Tromethamine (Toradol) 15 mg IVP Q6 PRN PRN Reason: Pain, moderate (4-7) Last Admin: 01/26/19 11:00 Dose: 15 mg Lidocaine (Lidoderm) 1 ea TD DAILY [facility] Last Admin: 01/26/19 11:02 Dose: 1 ea Mirtazapine (Remeron) 30 mg PO HS [facility] Last Admin: 01/25/19 22:02 Dose: 30 mg Pantoprazole Sodium (Protonix Inj) 40 mg IVP DAILY [facility] Last Admin: 01/26/19 11:04 Dose: 40 mg Phenol/Menthol (Phenaseptic 1.4% Throat [place]) 1 spry MT Q2 PRN PRN Reason: Sore Throat - Labs Labs: 01/26/19 08:45 01/26/19 08:45 PT 21.4 Seconds (9.8-13.1) H 01/23/19 05:45 INR 1.9 01/23/19 05:45 APTT 27.7 Seconds (25.6-37.1) 01/15/19 05:20 Assessment and Plan - Assessment and Plan (Free Text) Plan: All medical record entries made by the resident were at my direction and personally directed by me. I have reviewed the chart and agree that the record accurately reflects my personal performance of the history, physical exam, medical decision making. I have also personally directed, reviewed, and agree with the resident note.
[2019-01-25 08:48] LABS: BASO % 0.3 % (0.0-2.0); EOS # 0.4 K/uL (0.0-0.7); EOS % 3.7 % (0.0-4.0); HEMOGLOBIN 10.7 g/dL (12.0-16.0); LYMPH # 1.2 K/uL (1.0-4.3); MEAN CELL VOLUME 88.2 fl (81.0-99.0); MEAN PLATELET VOLUME 8.5 fl (7.2-11.7); MONO % 8.9 % (0.0-10.0); NEUT # 8.5 K/uL (1.8-7.0); NEUT % 76.1 % (50.0-75.0); RBC 3.57 Mil/uL (3.80-5.20); RED CELL DISTRIBUTION WIDTH 13.4 % (11.5-14.5)
[2019-01-25 08:59] LABS: ALB/GLOB RATIO 1.1 (1.0-2.1); ALBUMIN 2.8 g/dL (3.5-5.0); ALT/SGPT 46 U/L (9-52); AST/SGOT 31 U/L (14-36); BLOOD UREA NITROGEN 3 mg/dl (7-17); CALCIUM 8.3 mg/dL (8.4-10.2); GFR NON-AFRICAN AMERICAN > 60
[2019-01-25 09:02] LABS: WHITE BLOOD COUNT 11.2 K/uL (4.8-10.8)
[2019-01-25] MEDS: Lidocaine 5% Patch TD SCH (09:18)
[2019-01-25] MEDS: Enoxaparin 40 mg Syringe SC SCH (09:19)
[2019-01-25] MEDS: Potassium Chl 20 mEq in D5-NS 1,000 ML IV SCH ×2 (10:30→20:35)
[2019-01-25] MEDS: Potassium Chloride 20 mEq 100 ML IVPB SCH ×3 (10:31→14:36)
--- NOTE | 2019-01-25 13:41 | CP.PCM.PN ---
<Maame Caballero - Last Filed: 01/25/19 13:43> Subjective - Date & Time of Evaluation Date of Evaluation: 01/25/19 Time of Evaluation: 10:00 - Subjective Subjective: PGY5 GI Follow-up Pt seen and examined bedside lethargic 2/2 pain meds still has abd pain but improved after pain meds denies BM and flatus ROS: 12 point ROS conducted, neg other than above Objective - Vital Signs/Intake and Output Vital Signs (last 24 hours): Temp Pulse Resp BP Pulse Ox 98.2 F 77 20 149/66 94 L 01/25/19 08:27 01/25/19 08:27 01/25/19 08:27 01/25/19 08:27 01/25/19 08:27 Intake and Output: 01/25/19 01/25/19 06:59 18:59 Intake Total 1200 Output Total 700 Balance 500 - Medications Medications: Current Medications Acetaminophen (Tylenol 650 Mg Supp) 650 mg [place] Q6 PRN PRN Reason: Pain, moderate (4-7) Benzocaine/Menthol (Cepacol Sore Throat) 1 rebecca PO Q3 PRN PRN Reason: Sore Throat Last Admin: 01/21/19 16:55 Dose: 1 rebecca Clozapine (Clozaril) 300 mg PO Q12H [facility] Last Admin: 01/25/19 09:18 Dose: 300 mg Enoxaparin Sodium (Lovenox) 40 mg SC DAILY [facility]; Protocol Last Admin: 01/25/19 09:19 Dose: 40 mg Hydromorphone HCl (Dilaudid) 0.5 mg IVP Q2 PRN PRN Reason: Pain, severe (8-10) Last Admin: 01/25/19 03:10 Dose: 0.5 mg Potassium Chloride (Potassium Chloride 20 Meq/100 Ml) 100 mls @ 50 mls/hr IVPB Q2 [facility] Stop: 01/25/19 15:59 Last Admin: 01/25/19 12:26 Dose: 50 mls/hr Potassium Chloride/Dextrose/Sod Cl (Potassium Chl 20 Meq In D5-Ns) 1,000 mls @ 125 mls/hr IV .Q8H [facility] Stop: 01/26/19 09:17 Last Admin: 01/25/19 10:30 Dose: 125 mls/hr Ketorolac Tromethamine (Toradol) 15 mg IVP Q6 PRN PRN Reason: Pain, moderate (4-7) Last Admin: 01/24/19 20:02 Dose: 15 mg Lidocaine (Lidoderm) 1 ea TD DAILY [facility] Last Admin: 01/25/19 09:18 Dose: 1 ea Mirtazapine (Remeron) 30 mg PO HS [facility] Last Admin: 01/24/19 22:58 Dose: 30 mg Pantoprazole Sodium (Protonix Inj) 40 mg IVP DAILY [facility] Last Admin: 01/25/19 09:19 Dose: 40 mg Phenol/Menthol (Phenaseptic 1.4% Throat [place]) 1 spry MT Q2 PRN PRN Reason: Sore Throat - Labs Labs: 01/25/19 06:30 01/25/19 06:30 PT 21.4 Seconds (9.8-13.1) H 01/23/19 05:45 INR 1.9 01/23/19 05:45 APTT 27.7 Seconds (25.6-37.1) 01/15/19 05:20 - Constitutional Appears: Non-toxic, No Acute Distress - Head Exam Head Exam: ATRAUMATIC, NORMOCEPHALIC - Eye Exam Eye Exam: Normal appearance - ENT Exam ENT Exam: Mucous Membranes Moist, Normal Exam - Respiratory Exam Respiratory Exam: Clear to Ausculation Bilateral, NORMAL BREATHING PATTERN. absent: Rales, Rhonchi, Wheezes, Respiratory Distress - Cardiovascular Exam Cardiovascular Exam: REGULAR RHYTHM, +S1, +S2 - GI/Abdominal Exam GI & Abdominal Exam: Soft, Tenderness (epigastric, ), Normal Bowel Sounds. absent: Distended, Firm, Guarding, Rigid, Organomegaly, Rebound - Extremities Exam Extremities Exam: absent: Joint Swelling, Pedal Edema - Neurological Exam Neurological Exam: Altered, Oriented x3 - Psychiatric Exam Psychiatric exam: Normal Affect, Normal Mood - Skin Skin Exam: Dry, Intact, Normal Color, Warm Assessment and Plan - Assessment and Plan (Free Text) Assessment: 38 yo WF with CP, h/o cholecystectomy, Anxiety and schizophrenia present with SBO. S/P adhesion lysis, surgically assisted push enteroscopy, Open lysis of adhesions, Small Bowel resection with primary side to side anastamoses, incidental appendectomy. SBO s/p as above ABd pain 2/2 above Post-op Ileus, ddx: opiod induced Plan: -NG management and diet as per general surgery -awaiting path results -24hr 5-HIAA urine pending, collected -pain management as per gen surgery , but would advise decreasing use -recommend serial abd exams -may benefit from OOB to chair -PT incentive spir D/W Dr. Key <Bennett Key - Last Filed: 01/25/19 16:57> Objective - Vital Signs/Intake and Output Vital Signs (last 24 hours): Temp Pulse Resp BP Pulse Ox 98.2 F 77 20 149/66 94 L 01/25/19 08:27 01/25/19 08:27 01/25/19 08:27 01/25/19 08:27 01/25/19 08:27 Intake and Output: 01/25/19 01/25/19 06:59 18:59 Intake Total 1200 Output Total 700 Balance 500 - Medications Medications: Current Medications Acetaminophen (Tylenol 650 Mg Supp) 650 mg [place] Q6 PRN PRN Reason: Pain, moderate (4-7) Benzocaine/Menthol (Cepacol Sore Throat) 1 rebecca PO Q3 PRN PRN Reason: Sore Throat Last Admin: 01/21/19 16:55 Dose: 1 rebecca Clozapine (Clozaril) 300 mg PO Q12H [facility] Last Admin: 01/25/19 09:18 Dose: 300 mg Enoxaparin Sodium (Lovenox) 40 mg SC DAILY [facility]; Protocol Last Admin: 01/25/19 09:19 Dose: 40 mg Hydromorphone HCl (Dilaudid) 0.5 mg IVP Q2 PRN PRN Reason: Pain, severe (8-10) Last Admin: 01/25/19 03:10 Dose: 0.5 mg Potassium Chloride/Dextrose/Sod Cl (Potassium Chl 20 Meq In D5-Ns) 1,000 mls @ 125 mls/hr IV .Q8H [facility] Stop: 01/26/19 09:17 Last Admin: 01/25/19 10:30 Dose: 125 mls/hr Ketorolac Tromethamine (Toradol) 15 mg IVP Q6 PRN PRN Reason: Pain, moderate (4-7) Last Admin: 01/24/19 20:02 Dose: 15 mg Lidocaine (Lidoderm) 1 ea TD DAILY [facility] Last Admin: 03/24/19 09:18 Dose: 1 ea Mirtazapine (Remeron) 30 mg PO HS [facility] Last Admin: 01/24/19 22:58 Dose: 30 mg Pantoprazole Sodium (Protonix Inj) 40 mg IVP DAILY [facility] Last Admin: 01/25/19 09:19 Dose: 40 mg Phenol/Menthol (Phenaseptic 1.4% Throat [place]) 1 spry MT Q2 PRN PRN Reason: Sore Throat - Labs Labs: 01/25/19 06:30 01/25/19 06:30 PT 21.4 Seconds (9.8-13.1) H 01/23/19 05:45 INR 1.9 01/23/19 05:45 APTT 27.7 Seconds (25.6-37.1) 01/15/19 05:20 Attending/Attestation - Attestation I have personally seen and examined this patient.: Yes I have fully participated in the care of the patient.: Yes I have reviewed all pertinent clinical information, including history, physical exam and plan: Yes Notes (Text): 01/25/19 16:57 Chart reviewed. Pt examined this am and discussed with Dr. Caballero. Agree with the above-documented findings, assessment and recommendations.
[2019-01-26] MEDS: Potassium Chl 20 mEq in D5-NS 1,000 ML IV SCH ×2 (02:00→05:17)
[2019-01-26 09:13] LABS: BASO % 0.5 % (0.0-2.0); EOS # 0.5 K/uL (0.0-0.7); EOS % 5.9 % (0.0-4.0); LYMPH # 0.9 K/uL (1.0-4.3); LYMPH % 11.1 % (20.0-40.0); MEAN CELL VOLUME 89.5 fl (81.0-99.0); MEAN CORPUSCULAR HEMOGLOBIN 29.6 pg (27.0-31.0); MEAN CORPUSCULAR HGB CONC 33.1 g/dL (33.0-37.0); MEAN PLATELET VOLUME 8.1 fl (7.2-11.7); MONO # 0.6 K/uL (0.0-0.8); MONO % 7.2 % (0.0-10.0); NEUT # 6.1 K/uL (1.8-7.0); NEUT % 75.3 % (50.0-75.0); NRBC % 0.1 % (0.0-0.0); RBC 3.71 Mil/uL (3.80-5.20); RED CELL DISTRIBUTION WIDTH 13.5 % (11.5-14.5); WHITE BLOOD COUNT 8.1 K/uL (4.8-10.8)
--- NOTE | 2019-01-26 09:28 | CP.PCM.PN ---
<Aydin Franco - Last Filed: 01/26/19 09:25> Subjective - Date & Time of Evaluation Date of Evaluation: 01/26/19 Time of Evaluation: 09:25 - Subjective Subjective: General Surgery Progress Note for Dr. Valencia This 38F was seen and examined this AM at bedside no acute events reported overnight. Patient denies flatus or BM. She denies fevers or chills overnight. She expressed that she is worried that something bad is happening I explained that she is no worse today and set her at ease. NGT with 200cc bilious out over 24 hours. No new complaints at this time. Dressings removed this AM wounds well approximated non tender non-erythematous. Objective - Vital Signs/Intake and Output Vital Signs (last 24 hours): Temp Pulse Resp BP Pulse Ox 99.0 F 91 H 19 113/78 97 01/26/19 08:35 01/26/19 08:35 01/26/19 08:35 01/26/19 08:35 01/26/19 08:35 Intake and Output: 01/26/19 01/26/19 06:59 18:59 Intake Total 1550 Output Total 200 Balance 1350 - Medications Medications: Current Medications Acetaminophen (Tylenol 650 Mg Supp) 650 mg [place] Q6 PRN PRN Reason: Pain, moderate (4-7) Benzocaine/Menthol (Cepacol Sore Throat) 1 rebecca PO Q3 PRN PRN Reason: Sore Throat Last Admin: 01/21/19 16:55 Dose: 1 rebecca Clozapine (Clozaril) 300 mg PO Q12H [facility] Last Admin: 01/25/19 22:02 Dose: 300 mg Enoxaparin Sodium (Lovenox) 40 mg SC DAILY [facility]; Protocol Last Admin: 01/25/19 09:19 Dose: 40 mg Hydromorphone HCl (Dilaudid) 0.5 mg IVP Q2 PRN PRN Reason: Pain, severe (8-10) Last Admin: 01/25/19 03:10 Dose: 0.5 mg Ketorolac Tromethamine (Toradol) 15 mg IVP Q6 PRN PRN Reason: Pain, moderate (4-7) Last Admin: 01/26/19 05:19 Dose: 15 mg Lidocaine (Lidoderm) 1 ea TD DAILY [facility] Last Admin: 01/25/19 09:18 Dose: 1 ea Mirtazapine (Remeron) 30 mg PO HS [facility] Last Admin: 01/25/19 22:02 Dose: 30 mg Pantoprazole Sodium (Protonix Inj) 40 mg IVP DAILY [facility] Last Admin: 01/25/19 09:19 Dose: 40 mg Phenol/Menthol (Phenaseptic 1.4% Throat [place]) 1 spry MT Q2 PRN PRN Reason: Sore Throat - Labs Labs: 01/26/19 08:45 01/25/19 06:30 PT 21.4 Seconds (9.8-13.1) H 01/23/19 05:45 INR 1.9 01/23/19 05:45 APTT 27.7 Seconds (25.6-37.1) 01/15/19 05:20 - Constitutional Appears: Non-toxic, No Acute Distress - Head Exam Head Exam: ATRAUMATIC, NORMOCEPHALIC - Eye Exam Eye Exam: Normal appearance - ENT Exam ENT Exam: Mucous Membranes Moist, Normal Exam - Respiratory Exam Respiratory Exam: Clear to Ausculation Bilateral, NORMAL BREATHING PATTERN. absent: Rales, Rhonchi, Wheezes, Respiratory Distress - Cardiovascular Exam Cardiovascular Exam: REGULAR RHYTHM, +S1, +S2 - GI/Abdominal Exam GI & Abdominal Exam: Soft, Tenderness (epigastric, ), Normal Bowel Sounds. absent: Distended, Firm, Guarding, Rigid, Organomegaly, Rebound Wounds well aproximated non tender non erythematous non draining - Extremities Exam Extremities Exam: absent: Joint Swelling, Pedal Edema - Neurological Exam Neurological Exam: Altered, Oriented x3 - Psychiatric Exam Psychiatric exam: Normal Affect, Normal Mood - Skin Skin Exam: Dry, Intact, Normal Color, Warm Assessment and Plan - Assessment and Plan (Free Text) Assessment: 38F POD#3 s/p ex-lap w/ SBR Plan: cont NGT to LIS cont IVF replace electrolytes PRN PICC today and start hyperalimentation OOB to chair incentive spirometry Futher recs per Dr. Erik Franco PGY3 <Franklyn Valencia - Last Filed: 01/30/19 10:23> Objective - Vital Signs/Intake and Output Vital Signs (last 24 hours): Temp Pulse Resp BP Pulse Ox 99.0 F 91 H 19 113/78 97 01/26/19 08:35 01/26/19 08:35 01/26/19 08:35 01/26/19 08:35 01/26/19 08:35 Intake and Output: 01/26/19 01/26/19 06:59 18:59 Intake Total 1550 Output Total 200 Balance 1350 - Medications Medications: Current Medications Acetaminophen (Tylenol 650 Mg Supp) 650 mg [place] Q6 PRN PRN Reason: Pain, moderate (4-7) Benzocaine/Menthol (Cepacol Sore Throat) 1 rebecca PO Q3 PRN PRN Reason: Sore Throat Last Admin: 01/21/19 16:55 Dose: 1 rebecca Clozapine (Clozaril) 300 mg PO Q12H [facility] Last Admin: 01/26/19 11:02 Dose: 300 mg Docusate Sodium (Colace Liquid) 100 mg NG BID [facility] Enoxaparin Sodium (Lovenox) 40 mg SC DAILY [facility]; Protocol Last Admin: 01/26/19 11:04 Dose: 40 mg Hydromorphone HCl (Dilaudid) 0.5 mg IVP Q2 PRN PRN Reason: Pain, severe (8-10) Last Admin: 01/25/19 03:10 Dose: 0.5 mg Sodium Chloride 35 meq/ Sodium Phosphate 20 mmole/ Potassium Acetate 45 meq/ Magnesium Sulfate 7 meq/ Calcium Gluconate 4.5 meq/Multivitamins/Vitamin C 10 ml/Chromium/Copper/Manganese/Zinc 3 ml/ Amino Acids 1,062.3182 mls @ 83 mls/hr IV .[id number] ONE Stop: 01/27/19 02:47 Last Admin: 01/26/19 14:46 Dose: 83 mls/hr Sodium Chloride 35 meq/ Sodium Phosphate 20 mmole/ Potassium Acetate 45 meq/ Magnesium Sulfate 7 meq/ Calcium Gluconate 4.5 meq/ Amino Acids 1,049.3182 mls @ 83 mls/hr IV .[id number] ONE Stop: 01/27/19 14:38 Potassium Phosphate 30 mmole/ (Sodium Chloride) 260 mls @ 65 mls/hr IV ONCE ONE Stop: 01/26/19 17:59 Ketorolac Tromethamine (Toradol) 15 mg IVP Q6 PRN PRN Reason: Pain, moderate (4-7) Last Admin: 01/26/19 11:00 Dose: 15 mg Lidocaine (Lidoderm) 1 ea TD DAILY [facility] Last Admin: 01/26/19 11:02 Dose: 1 ea Mirtazapine (Remeron) 30 mg PO HS [facility] Last Admin: 01/25/19 22:02 Dose: 30 mg Pantoprazole Sodium (Protonix Inj) 40 mg IVP DAILY [facility] Last Admin: 01/26/19 11:04 Dose: 40 mg Phenol/Menthol (Phenaseptic 1.4% Throat [place]) 1 spry MT Q2 PRN PRN Reason: Sore Throat - Labs Labs: 01/26/19 08:45 01/26/19 08:45 PT 21.4 Seconds (9.8-13.1) H 01/23/19 05:45 INR 1.9 01/23/19 05:45 APTT 27.7 Seconds (25.6-37.1) 01/15/19 05:20 Assessment and Plan - Assessment and Plan (Free Text) Assessment: All medical record entries made by the resident were at my direction and pers onally directed by me. I have reviewed the chart and agree that the record accurately reflects my personal performance of the history, physical exam, medical decision making. I have also personally directed, reviewed, and agree with the resident note. Needs correction of electrolytes
[2019-01-26 09:29] LABS: ALBUMIN 2.7 g/dL (3.5-5.0); ALT/SGPT 37 U/L (9-52); AST/SGOT 16 U/L (14-36); BLOOD UREA NITROGEN < 2 mg/dl (7-17); CALCIUM 8.6 mg/dL (8.4-10.2); GFR NON-AFRICAN AMERICAN > 60
[2019-01-26] MEDS ORDERED: Potassium Chloride 20 mEq 100 ML IV SCH (10:00)
--- NOTE | 2019-01-26 10:34 | CP.PCM.PN ---
<Sai Templejimmy - Last Filed: 01/26/19 16:46> Subjective - Date & Time of Evaluation Date of Evaluation: 01/26/19 Time of Evaluation: 11:00 - Subjective Subjective: PGY-4 GI Fellow Prog Note Pt lying in bed, discussing PICC placement with staff when seen this AM. States abd pain is present but stable and still requiring pain medication. Denied and BM nor flatus. 5 point ROS negative other than stated above Objective - Vital Signs/Intake and Output Vital Signs (last 24 hours): Temp Pulse Resp BP Pulse Ox 99.0 F 91 H 19 113/78 97 01/26/19 08:35 01/26/19 08:35 01/26/19 08:35 01/26/19 08:35 01/26/19 08:35 Intake and Output: 01/26/19 01/26/19 06:59 18:59 Intake Total 1550 Output Total 200 Balance 1350 - Medications Medications: Current Medications Acetaminophen (Tylenol 650 Mg Supp) 650 mg [place] Q6 PRN PRN Reason: Pain, moderate (4-7) Benzocaine/Menthol (Cepacol Sore Throat) 1 rebecca PO Q3 PRN PRN Reason: Sore Throat Last Admin: 01/21/19 16:55 Dose: 1 rebecca Clozapine (Clozaril) 300 mg PO Q12H [facility] Last Admin: 01/25/19 22:02 Dose: 300 mg Enoxaparin Sodium (Lovenox) 40 mg SC DAILY [facility]; Protocol Last Admin: 01/25/19 09:19 Dose: 40 mg Hydromorphone HCl (Dilaudid) 0.5 mg IVP Q2 PRN PRN Reason: Pain, severe (8-10) Last Admin: 01/25/19 03:10 Dose: 0.5 mg Ketorolac Tromethamine (Toradol) 15 mg IVP Q6 PRN PRN Reason: Pain, moderate (4-7) Last Admin: 01/26/19 05:19 Dose: 15 mg Lidocaine (Lidoderm) 1 ea TD DAILY [facility] Last Admin: 01/25/19 09:18 Dose: 1 ea Mirtazapine (Remeron) 30 mg PO HS [facility] Last Admin: 01/25/19 22:02 Dose: 30 mg Pantoprazole Sodium (Protonix Inj) 40 mg IVP DAILY [facility] Last Admin: 01/25/19 09:19 Dose: 40 mg Phenol/Menthol (Phenaseptic 1.4% Throat [place]) 1 spry MT Q2 PRN PRN Reason: Sore Throat - Labs Labs: 01/26/19 08:45 01/26/19 08:45 PT 21.4 Seconds (9.8-13.1) H 01/23/19 05:45 INR 1.9 01/23/19 05:45 APTT 27.7 Seconds (25.6-37.1) 01/15/19 05:20 - Constitutional Appears: No Acute Distress, Chronically Ill - Head Exam Head Exam: ATRAUMATIC, NORMAL INSPECTION - Eye Exam Eye Exam: EOMI. absent: Scleral icterus - ENT Exam ENT Exam: Mucous Membranes Dry. absent: Mucous Membranes Moist Additional comments: +NG in place with bilious output - Respiratory Exam Respiratory Exam: NORMAL BREATHING PATTERN. absent: Accessory Muscle Use, Respiratory Distress - GI/Abdominal Exam GI & Abdominal Exam: Distended, Guarding, Soft, Tenderness, Diminished Bowel Sounds, Hypoactive Bowel Sounds. absent: Bruit, Firm, Rigid, Mass Additional comments: mildly ttp diffusely with vol guarding throughout, surgical sites intact without erythema Assessment and Plan - Assessment and Plan (Free Text) Assessment: 38 yo WF with CP, h/o cholecystectomy, Anxiety and schizophrenia present with SBO. S/P adhesion lysis, surgically assisted push enteroscopy, Open lysis of adhesions, Small Bowel resection with primary side to side anastamoses, incidental appendectomy. SBO s/p as above Abd pain 2/2 above Post-op Ileus, ddx: opiod induced Plan: -NG and diet as per gen surg -Awaiting path results -24hr 5-HIAA urine pending, collected -pain management per gen surgery, limit narcs as able, use lowest effective dose -Serial abd exams -Encourage OOB to chair, PT, IS Pt seen and examined with Dr. Barker; please see attestation for further recs/changes. <Becki Barker - Last Filed: 01/26/19 19:22> Objective - Vital Signs/Intake and Output Vital Signs (last 24 hours): Temp Pulse Resp BP Pulse Ox 98.9 F 94 H 18 109/77 96 01/26/19 16:55 01/26/19 16:55 01/26/19 16:55 01/26/19 16:55 01/26/19 16:55 - Medications Medications: Current Medications Acetaminophen (Tylenol 650 Mg Supp) 650 mg [place] Q6 PRN PRN Reason: Pain, moderate (4-7) Benzocaine/Menthol (Cepacol Sore Throat) 1 rebecca PO Q3 PRN PRN Reason: Sore Throat Last Admin: 01/21/19 16:55 Dose: 1 rebecca Clozapine (Clozaril) 300 mg PO Q12H [facility] Last Admin: 01/26/19 11:02 Dose: 300 mg Docusate Sodium (Colace Liquid) 100 mg NG BID [facility] Last Admin: 01/26/19 17:41 Dose: 100 mg Enoxaparin Sodium (Lovenox) 40 mg SC DAILY [facility]; Protocol Last Admin: 01/26/19 11:04 Dose: 40 mg Hydromorphone HCl (Dilaudid) 0.5 mg IVP Q2 PRN PRN Reason: Pain, severe (8-10) Last Admin: 01/25/19 03:10 Dose: 0.5 mg Sodium Chloride 35 meq/ Sodium Phosphate 20 mmole/ Potassium Acetate 45 meq/ Magnesium Sulfate 7 meq/ Calcium Gluconate 4.5 meq/Multivitamins/Vitamin C 10 ml/Chromium/Copper/Manganese/Zinc 3 ml/ Amino Acids 1,062.3182 mls @ 83 mls/hr IV .[id number] ONE Stop: 01/27/19 02:47 Last Admin: 01/26/19 14:46 Dose: 83 mls/hr Sodium Chloride 35 meq/ Sodium Phosphate 20 mmole/ Potassium Acetate 45 meq/ Magnesium Sulfate 7 meq/ Calcium Gluconate 4.5 meq/ Amino Acids 1,049.3182 mls @ 83 mls/hr IV .[id number] ONE Stop: 01/27/19 14:38 Ketorolac Tromethamine (Toradol) 15 mg IVP Q6 PRN PRN Reason: Pain, moderate (4-7) Last Admin: 01/26/19 11:00 Dose: 15 mg Lidocaine (Lidoderm) 1 ea TD DAILY [facility] Last Admin: 01/26/19 11:02 Dose: 1 ea Mirtazapine (Remeron) 30 mg PO HS [facility] Last Admin: 01/25/19 22:02 Dose: 30 mg Pantoprazole Sodium (Protonix Inj) 40 mg IVP DAILY [facility] Last Admin: 01/26/19 11:04 Dose: 40 mg Phenol/Menthol (Phenaseptic 1.4% Throat [place]) 1 spry MT Q2 PRN PRN Reason: Sore Throat - Labs Labs: 01/26/19 08:45 01/26/19 08:45 PT 21.4 Seconds (9.8-13.1) H 01/23/19 05:45 INR 1.9 01/23/19 05:45 APTT 27.7 Seconds (25.6-37.1) 01/15/19 05:20 Attending/Attestation - Attestation I have personally seen and examined this patient.: Yes I have fully participated in the care of the patient.: Yes I have reviewed all pertinent clinical information, including history, physical exam and plan: Yes Notes (Text): 01/26/19 19:17 I have seen and examined the pt with the GI fellow. 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 No flatus, no BM. PICC placed, planned for TPN. Gen: NGT in place with bilious output Abd: soft, still distended and tympanic, hypoactive bowel sounds Plan: -with post-op ileus -limit opioid use -Tylenol as needed -goal K>4, Phos >2.5 -encourage incentive spirometry and ambulation -TPN while awaiting bowel activity 01/26/19 19:21
--- NOTE | 2019-01-26 10:38 | OP ---
PROCEDURE DATE: 01/23/2019 PREOPERATIVE DIAGNOSIS: Small bowel obstruction. POSTOPERATIVE DIAGNOSIS: Small bowel obstruction. PROCEDURE PERFORMED: Laparoscopic assisted push endoscopy with laparoscopic lysis of adhesions towards open lysis of adhesions, small bowel resection with primary side to side anastomosis and incidental appendectomy. SURGEON: Dr. Franklyn Polanco MD SURGEON MARCELL: Aydin Franco DO SWITCH REPAIRER: Milton Zamudio DO. TYPE OF ANESTHESIA: General endotracheal anesthesia. ANESTHESIA ADMINISTERED BY: Shad Gorman MD SPECIMENS REMOVED: Small bowel and appendix. ESTIMATED BLOOD LOSS: 25 mL. INDICATION: This patient, Karen Leo is a 38-year-old female with a past medical history of cystic fibrosis. She presented with small bowel obstruction. She was taken to the operating room previously in which running of the bowel was not significant for any adhesive bands at that time, however, she was noted to have abnormal tissue texture of the small bowel. On further workup, she was found to have elevated chromogranin A levels, so decision was made to do a push endoscopy with laparoscopic assistance in order to be able to explore maximum amount of mucosal surface, that is the indication from the surgery. DESCRIPTION OF PROCEDURE: After informed consent was obtained by Dr. Tinoco himself, Ms. Karen Leo was brought into the operating room and placed in the supine position with appropriate padding in place and a mouth guard in place. The Gastroenterology team then started with their upper endoscopic evaluation at which point the patient was prepped and draped in the usual sterile fashion after the Oden was placed. All time-outs were conducted and correct patient, position, procedure was all confirmed by all members of the team. A 5 mm trocar was then placed in the previous abdominal incision and two lateral ports were placed, one on the right side and one on the left side from previous laparoscopic port site incisions. Using two bowel graspers, the bowel was then run and pushed over the endoscopic tube pleading in order to obtain further visualization of the small bowel. After a lengthy evaluation into the mid to distal jejunum, no intraluminal tumors were found, however, multiple adhesions were noted on the bowel, many taken out laparoscopically with the endoscope in the lumen. The endoscope was then retracted from the lumen in which most of the small bowel was insufflated. Port visualization was able to be obtained. A decision was made to convert to an open surgery. The previous midline incision was then extended centimeter and half in each direction from the previous incision line. The fascia was opened as well in the same plane. The bowel was then eviscerated and exteriorized starting from the cecum of the bowel, it was run proximally. Multiple adhesions and multiple loops were found to be coiled and knotted. Very careful dissection of the adhesions were carried out until the bowel was fully mobilized and freed of any adhesions. There was a clear distinction between dilated and nondilated bowel. While running the bowel, abnormal tissue texture was noted, there was the specific area of small bowel that was agreed upon to be abnormal in quality. So the decision was made to resect that piece of small bowel, we did a primary anastomosis. Using a ASHISH stapler, the bowel was transected, hemostasis was maintained during that time. The bowel was then brought together in a [id number] typical fashion. Using electrocautery, the bowel was then entered. A small hole was made so that the stapler can be placed. [id number] anastomosis was conducted from anterior mesenteric to anterior mid mesenteric side of the bowel. The anastomosis was then completed across the end using a blue ASHISH load as well. Using a series of 2-0 silk stitches, the anastomosis end was then imbricated. An anchoring stitch was placed as well at the end of the anastomosis as well as the crotch of the anastomosis. The mesenteric defect was closed using a silk stitch as well, good lumen was noted in our anastomosis. The bowel was then run again one last time. No other areas were noted to be problematic. The bowel was then externalized. The transverse abdominal incision was then closed with particular tension focused on the anterior sheath and peritoneum. The incision was closed using 2- 0 PDS loops and then tied in the middle. The midline incision was then closed as well. The subcutaneous tissue was then closed using a Vicryl to increase space and a 4-0 Monocryl for the skin. All port sites were closed using 4-0 Monocryl and closed with Steri-Strips and a sterile dressing was applied. This has all been after all counts were determined to be correct by the nursing staff. The patient was then extubated and went to PACU in stable condition. Estimated blood loss during the procedure was 25 mL of blood. Aydin Franco DO Franklyn MD [facility] # [id number] LUISA
[2019-01-26] MEDS: Lidocaine 5% Patch TD SCH (11:02)
[2019-01-26] MEDS: Enoxaparin 40 mg Syringe SC SCH (11:04)
[2019-01-26] MEDS ORDERED: POTASSIUM ACETATE IV ONE (14:00)
[2019-01-26] MEDS ORDERED: [UNRECOGNIZED DRUG - OTHER] IV ONE (14:00)
[2019-01-26] MEDS ORDERED: Potassium Phosphate 30 MMOLE in Sodium Chloride 0.9% 250 ML IV ONE (14:00)
[2019-01-26] MEDS ORDERED: SODIUM PHOSPHATE IV ONE (14:00)
[2019-01-26] MEDS ORDERED: SODIUM CHLORIDE IV ONE (14:00)
--- NOTE | 2019-01-26 15:26 | RAD ---
Date of service: 01/26/2019 PROCEDURE: CHEST RADIOGRAPH, 1 VIEW HISTORY: picc line placement COMPARISON: 02/27/2012 FINDINGS: LUNGS: Clear. PLEURA: No pneumothorax or pleural fluid seen. CARDIOVASCULAR: No aortic atherosclerotic calcification present. Normal heart size. Right PICC catheter terminates just above the level of the cavoatrial junction. A nasogastric tube extends to the left upper quadrant of the abdomen. OSSEOUS STRUCTURES: No significant abnormalities. VISUALIZED UPPER ABDOMEN: Normal. OTHER FINDINGS: None. IMPRESSION: Right PICC catheter terminates just above the level of the cavoatrial junction.
[2019-01-26] MEDS: Potassium CL 10mEq/100ml 100 ML IVPB SCH ×2 (17:40→19:07)
[2019-01-27] MEDS ORDERED: [UNRECOGNIZED DRUG - OTHER] IV ONE (02:00)
[2019-01-27] MEDS ORDERED: POTASSIUM ACETATE IV ONE (02:00)
[2019-01-27] MEDS ORDERED: SODIUM CHLORIDE IV ONE (02:00)
[2019-01-27] MEDS ORDERED: SODIUM PHOSPHATE IV ONE (02:00)
--- NOTE | 2019-01-27 07:55 | CP.PCM.PN ---
<Milton Zamudio - Last Filed: 01/27/19 08:48> Subjective - Date & Time of Evaluation Date of Evaluation: 01/27/19 Time of Evaluation: 07:35 - Subjective Subjective: General Surgery Progress Note for Dr. Tinoco Patient was seen and examined at bedside.No acute events reported overnight. Pain has improved and is controlled. Patient admits to flatus but denies BM. She denies fevers/chills or nausea/vomiting. NGT with 400cc bilious output over 24 hours. She is NPO and receiving TPN. Patient allowed gum/hard candy for bowel stimulation. Encourage OOB to chair. Patient overall feels better today. Objective - Vital Signs/Intake and Output Vital Signs (last 24 hours): Temp Pulse Resp BP Pulse Ox 99.2 F 105 H 20 112/78 97 01/26/19 23:54 01/26/19 23:54 01/26/19 23:54 01/26/19 23:54 01/26/19 23:54 - Medications Medications: Current Medications Acetaminophen (Tylenol 650 Mg Supp) 650 mg MO Q6 PRN PRN Reason: Pain, moderate (4-7) Benzocaine/Menthol (Cepacol Sore Throat) 1 rebecca PO Q3 PRN PRN Reason: Sore Throat Last Admin: 01/21/19 16:55 Dose: 1 rebecca Clozapine (Clozaril) 300 mg PO Q12H [facility] Last Admin: 01/26/19 23:10 Dose: 300 mg Docusate Sodium (Colace Liquid) 100 mg NG BID [facility] Last Admin: 01/26/19 17:41 Dose: 100 mg Enoxaparin Sodium (Lovenox) 40 mg SC DAILY [facility]; Protocol Last Admin: 01/26/19 11:04 Dose: 40 mg Sodium Chloride 35 meq/ Sodium Phosphate 20 mmole/ Potassium Acetate 45 meq/ Magnesium Sulfate 7 meq/ Calcium Gluconate 4.5 meq/ Amino Acids 1,049.3182 mls @ 83 mls/hr IV .[id number] ONE Stop: 01/27/19 14:38 Last Admin: 01/27/19 03:24 Dose: 83 mls/hr Ketorolac Tromethamine (Toradol) 15 mg IVP Q6 PRN PRN Reason: Pain, moderate (4-7) Last Admin: 01/26/19 21:58 Dose: 15 mg Lidocaine (Lidoderm) 1 ea TD DAILY [facility] Last Admin: 01/26/19 11:02 Dose: 1 ea Mirtazapine (Remeron) 30 mg PO HS [facility] Last Admin: 01/26/19 23:05 Dose: 30 mg Pantoprazole Sodium (Protonix Inj) 40 mg IVP DAILY [facility] Last Admin: 01/26/19 11:04 Dose: 40 mg Phenol/Menthol (Phenaseptic 1.4% Throat [place]) 1 spry MT Q2 PRN PRN Reason: Sore Throat - Labs Labs: 01/26/19 08:45 01/26/19 08:45 PT 21.4 Seconds (9.8-13.1) H 01/23/19 05:45 INR 1.9 01/23/19 05:45 APTT 27.7 Seconds (25.6-37.1) 01/15/19 05:20 - Additional Findings Additional findings: - Constitutional Appears: Non-toxic, No Acute Distress - Head Exam Head Exam: ATRAUMATIC, NORMOCEPHALIC - Eye Exam Eye Exam: Normal appearance - ENT Exam ENT Exam: Mucous Membranes Moist, Normal Exam - Respiratory Exam Respiratory Exam: Clear to Ausculation Bilateral, NORMAL BREATHING PATTERN. absent: Rales, Rhonchi, Wheezes, Respiratory Distress - Cardiovascular Exam Cardiovascular Exam: REGULAR RHYTHM, +S1, +S2 - GI/Abdominal Exam GI & Abdominal Exam: Soft, Tenderness (surgical site), Normal Bowel Sounds. absent: Distended, Firm, Guarding, Rigid, Organomegaly, Rebound. Additional comments: incision sites well aproximated, non-tender, non-erythematous, no drainage noted - Extremities Exam Extremities Exam: Normal capillary refill, pulses present - Neurological Exam Neurological Exam: Altered, Oriented x3 - Psychiatric Exam Psychiatric exam: Normal Affect, Normal Mood - Skin Skin Exam: Dry, Intact, Normal Color, Warm Assessment and Plan - Assessment and Plan (Free Text) Assessment: 38F s/p push enteroscopy, diagnostic laparoscopy converted to open with STEFFEN and small bowel resection Plan: -NPO, sips & chips -May have gum/hard candy for bowel simulation -cont NGT to low intermittent suction -IVF -replace electrolytes PRN -TPN -Pain control -Strict I's & O's -OOB to chair/Ambulation/incentive spirometry -PT -Futher recommendations per Dr. Gunter PGY2 <Franklyn Valencia - Last Filed: 01/30/19 10:31> Objective - Vital Signs/Intake and Output Vital Signs (last 24 hours): Temp Pulse Resp BP Pulse Ox 98.1 F 101 H 18 107/74 97 01/30/19 03:20 01/30/19 03:20 01/30/19 03:20 01/30/19 03:20 01/30/19 03:20 - Medications Medications: Current Medications Acetaminophen (Tylenol 650 Mg Supp) 650 mg MO Q6 PRN PRN Reason: Pain, moderate (4-7) Benzocaine/Menthol (Cepacol Sore Throat) 1 rebecca PO Q3 PRN PRN Reason: Sore Throat Last Admin: 01/21/19 16:55 Dose: 1 rebecca Clozapine (Clozaril) 300 mg PO Q12H [facility] Last Admin: 01/29/19 21:26 Dose: Not Given Docusate Sodium (Colace Liquid) 100 mg NG BID [facility] Last Admin: 01/29/19 16:19 Dose: Not Given Enoxaparin Sodium (Lovenox) 40 mg SC DAILY [facility]; Protocol Last Admin: 01/30/19 08:55 Dose: 40 mg Amino Acids/Electrolytes/Dextrose (Clinimix E 4.25/10 1000 Ml) 1,000 mls @ 83 mls/hr IV .Q12H3M ONE Stop: 01/30/19 15:02 Last Admin: 01/30/19 05:04 Dose: 83 mls/hr Lidocaine (Lidoderm) 1 ea TD DAILY [facility] Last Admin: 01/30/19 08:59 Dose: 1 ea Mirtazapine (Remeron) 30 mg PO HS [facility] Last Admin: 01/29/19 21:26 Dose: Not Given Olanzapine (Zyprexa Inj) 10 mg IM Q12H PRN PRN Reason: Agitation Pantoprazole Sodium (Protonix Inj) 40 mg IVP DAILY [facility] Last Admin: 01/29/19 10:11 Dose: Not Given - Labs Labs: 01/30/19 06:27 01/30/19 06:27 PT 21.4 Seconds (9.8-13.1) H 01/23/19 05:45 INR 1.9 01/23/19 05:45 APTT 27.7 Seconds (25.6-37.1) 01/15/19 05:20 Assessment and Plan - Assessment and Plan (Free Text) Plan: All medical record entries made by the resident were at my direction. I have reviewed the chart and agree that the record accurately reflects my personal performance of the history, physical exam, medical decision making. I have also personally examined the patient, reviewed, and agree the resident note.
[2019-01-27 09:43] LABS: BASO # 0.1 K/uL (0.0-0.2); BASO % 0.9 % (0.0-2.0); EOS # 0.4 K/uL (0.0-0.7); EOS % 4.8 % (0.0-4.0); HEMOGLOBIN 11.4 g/dL (12.0-16.0); LYMPH # 1.1 K/uL (1.0-4.3); LYMPH % 12.4 % (20.0-40.0); MEAN CELL VOLUME 88.8 fl (81.0-99.0); MEAN CORPUSCULAR HEMOGLOBIN 30.2 pg (27.0-31.0); MEAN PLATELET VOLUME 8.3 fl (7.2-11.7); MONO # 0.5 K/uL (0.0-0.8); MONO % 5.6 % (0.0-10.0); NEUT # 6.7 K/uL (1.8-7.0); NEUT % 76.3 % (50.0-75.0); RBC 3.76 Mil/uL (3.80-5.20); RED CELL DISTRIBUTION WIDTH 13.3 % (11.5-14.5); WHITE BLOOD COUNT 8.8 K/uL (4.8-10.8)
[2019-01-27 09:50] LABS: ALB/GLOB RATIO 1.2 (1.0-2.1); ALBUMIN 3.1 g/dL (3.5-5.0); ALT/SGPT 27 U/L (9-52); AST/SGOT 17 U/L (14-36); BLOOD UREA NITROGEN 10 mg/dl (7-17); GFR NON-AFRICAN AMERICAN > 60
--- NOTE | 2019-01-27 09:51 | CP.PCM.PN ---
Subjective - Date & Time of Evaluation Date of Evaluation: 01/27/19 Time of Evaluation: 09:30 - Subjective Subjective: PGY-4 GI Fellow Prog Note Pt lying in bed when seen this AM. Abd pain persists but states that has had flatus, no BM yet. Also reports some concerns about her hallucinations and requesting psychiatrist. 5 point ROS negative other than stated above Objective - Vital Signs/Intake and Output Vital Signs (last 24 hours): Temp Pulse Resp BP Pulse Ox 99.2 F 105 H 20 112/78 97 01/26/19 23:54 01/26/19 23:54 01/26/19 23:54 01/26/19 23:54 01/26/19 23:54 Intake and Output: 01/27/19 01/27/19 06:59 18:59 Intake Total 1350 Output Total 1100 Balance 250 - Medications Medications: Current Medications Acetaminophen (Tylenol 650 Mg Supp) 650 mg MT Q6 PRN PRN Reason: Pain, moderate (4-7) Benzocaine/Menthol (Cepacol Sore Throat) 1 rebecca PO Q3 PRN PRN Reason: Sore Throat Last Admin: 01/21/19 16:55 Dose: 1 rebecca Clozapine (Clozaril) 300 mg PO Q12H [facility] Last Admin: 01/26/19 23:10 Dose: 300 mg Docusate Sodium (Colace Liquid) 100 mg NG BID [facility] Last Admin: 01/26/19 17:41 Dose: 100 mg Enoxaparin Sodium (Lovenox) 40 mg SC DAILY [facility]; Protocol Last Admin: 01/26/19 11:04 Dose: 40 mg Sodium Chloride 35 meq/ Sodium Phosphate 20 mmole/ Potassium Acetate 45 meq/ Magnesium Sulfate 7 meq/ Calcium Gluconate 4.5 meq/ Amino Acids 1,049.3182 mls @ 83 mls/hr IV .[id number] ONE Stop: 01/27/19 14:38 Last Admin: 01/27/19 03:24 Dose: 83 mls/hr Ketorolac Tromethamine (Toradol) 15 mg IVP Q6 PRN PRN Reason: Pain, moderate (4-7) Last Admin: 01/26/19 21:58 Dose: 15 mg Lidocaine (Lidoderm) 1 ea TD DAILY [facility] Last Admin: 01/26/19 11:02 Dose: 1 ea Mirtazapine (Remeron) 30 mg PO HS [facility] Last Admin: 01/26/19 23:05 Dose: 30 mg Pantoprazole Sodium (Protonix Inj) 40 mg IVP DAILY [facility] Last Admin: 01/26/19 11:04 Dose: 40 mg Phenol/Menthol (Phenaseptic 1.4% Throat [place]) 1 spry MT Q2 PRN PRN Reason: Sore Throat - Labs Labs: 01/27/19 09:36 01/26/19 08:45 PT 21.4 Seconds (9.8-13.1) H 01/23/19 05:45 INR 1.9 01/23/19 05:45 APTT 27.7 Seconds (25.6-37.1) 01/15/19 05:20 - Constitutional Appears: No Acute Distress, Chronically Ill - Head Exam Head Exam: ATRAUMATIC, NORMAL INSPECTION - Eye Exam Eye Exam: EOMI. absent: Scleral icterus - ENT Exam ENT Exam: Mucous Membranes Dry. absent: Mucous Membranes Moist Additional comments: NG in place with ~700 mL bilious output - Respiratory Exam Respiratory Exam: NORMAL BREATHING PATTERN. absent: Accessory Muscle Use - GI/Abdominal Exam GI & Abdominal Exam: Guarding, Soft, Tenderness, Hypoactive Bowel Sounds. absent: Bruit, Distended, Firm, Rigid, Mass, Pulsatile Mass Additional comments: surgical sites intact without erythema, diffusely ttp with vol guarding Assessment and Plan - Assessment and Plan (Free Text) Assessment: 38 yo WF with CP, h/o cholecystectomy, Anxiety and schizophrenia present with SBO. S/P adhesion lysis, surgically assisted push enteroscopy, Open lysis of adhesions, Small Bowel resection with primary side to side anastamoses, incidental appendectomy. SBO s/p as above Abd pain 2/2 above Post-op Ileus, ddx: opiod induced Plan: -NG and diet as per gen surg -Awaiting path results -24hr 5-HIAA urine pending, collected -Pain management per gen surgery, limit narcs as able, use lowest effective dose if needed -Serial abd exams -Encourage OOB to chair, PT, IS -Optimize electrolytes Pt seen and examined with Dr. Barker; please see attestation for further recs/changes.
[2019-01-27] MEDS: Lidocaine 5% Patch TD SCH (10:05)
[2019-01-27] MEDS: Enoxaparin 40 mg Syringe SC SCH (10:12)
[2019-01-27] MEDS: Potassium Chloride 20 mEq 100 ML IVPB SCH ×2 (13:16→15:58)
[2019-01-27] MEDS ORDERED: [UNRECOGNIZED DRUG - OTHER] IV ONE (15:00)
[2019-01-27] MEDS ORDERED: MULTIVITAMIN IV ONE (15:00)
[2019-01-27] MEDS ORDERED: MANGANESE IV ONE (15:00)
[2019-01-27] MEDS ORDERED: ZINC IV ONE (15:00)
[2019-01-27] MEDS ORDERED: COPPER IV ONE (15:00)
[2019-01-27] MEDS ORDERED: CHROMIUM IV ONE (15:00)
[2019-01-28] MEDS ORDERED: Amino/Dex E 4.25/10 1000 ML 1,000 ML IV ONE (03:00)
[2019-01-28 06:38] LABS: BASO % 0.1 % (0.0-2.0); EOS # 0.6 K/uL (0.0-0.7); EOS % 7.9 % (0.0-4.0); LYMPH # 0.9 K/uL (1.0-4.3); MEAN CORPUSCULAR HEMOGLOBIN 29.9 pg (27.0-31.0); MEAN CORPUSCULAR HGB CONC 32.7 g/dL (33.0-37.0); MEAN PLATELET VOLUME 8.5 fl (7.2-11.7); MONO # 0.5 K/uL (0.0-0.8); MONO % 6.2 % (0.0-10.0); NEUT # 5.6 K/uL (1.8-7.0); NEUT % 73.8 % (50.0-75.0); RBC 3.67 Mil/uL (3.80-5.20); WHITE BLOOD COUNT 7.5 K/uL (4.8-10.8)
[2019-01-28 06:57] LABS: MEAN CELL VOLUME 91.3 fl (81.0-99.0)
[2019-01-28 08:09] LABS: ALB/GLOB RATIO 1.2 (1.0-2.1); ALBUMIN 3.5 g/dL (3.5-5.0); ALT/SGPT 28 U/L (9-52); AST/SGOT 16 U/L (14-36); BLOOD UREA NITROGEN 11 mg/dl (7-17); CALCIUM 9.4 mg/dL (8.4-10.2); GFR NON-AFRICAN AMERICAN > 60
[2019-01-28] MEDS: Lidocaine 5% Patch TD SCH (10:08)
[2019-01-28] MEDS: Enoxaparin 40 mg Syringe SC SCH (10:09)
--- NOTE | 2019-01-28 12:39 | CP.PCM.CON ---
History of Present Illness - History of Present Illness History of Present Illness: 38 yo female with history of cerebral palsy had explore lap on 01/15/2019 because of SBO. Patient has been on Clozaril and Remeron and she was referred for their management. Past Patient History - Past Medical History & Family History Past Medical History?: Yes - Past Social History Alcohol: None - CARDIAC Hx Pacemaker: No - PULMONARY Hx Respiratory Disorders: No - NEUROLOGICAL Hx Seizures: Yes - HEENT Hx HEENT Problems: No - RENAL Hx Chronic Kidney Disease: No - ENDOCRINE/METABOLIC Hx Endocrine Disorders: No - HEMATOLOGICAL/ONCOLOGICAL Hx Cancer: No - INTEGUMENTARY Hx Dermatological Problems: No - MUSCULOSKELETAL/RHEUMATOLOGICAL Hx Musculoskeletal Disorders: No Hx Falls: No - GASTROINTESTINAL Hx Gastrointestinal Disorders: No - GENITOURINARY/GYNECOLOGICAL Hx Genitourinary Disorders: No - PSYCHIATRIC Hx Substance Use: No - SURGICAL HISTORY Hx Mastectomy: No - ANESTHESIA Hx Anesthesia: Yes Hx Anesthesia Reactions: No Hx Malignant Hyperthermia: No Has any member of the family had a problem w/ anesthesia?: No Meds Allergies/Adverse Reactions: Allergies Allergy/AdvReac Type Severity Reaction Status Date / Time haloperidol [From Haldol] Allergy RASH Verified 01/14/19 19:41 latex Allergy RASH Verified 01/14/19 19:41 lithium Allergy RASH Verified 01/14/19 19:41 - Medications Medications: Current Medications Acetaminophen (Tylenol 650 Mg Supp) 650 mg NV Q6 PRN PRN Reason: Pain, moderate (4-7) Benzocaine/Menthol (Cepacol Sore Throat) 1 rbeecca PO Q3 PRN PRN Reason: Sore Throat Last Admin: 01/21/19 16:55 Dose: 1 rebecca Clozapine (Clozaril) 300 mg PO Q12H [facility] Last Admin: 01/28/19 10:08 Dose: 300 mg Docusate Sodium (Colace Liquid) 100 mg NG BID [facility] Last Admin: 01/28/19 10:08 Dose: 100 mg Enoxaparin Sodium (Lovenox) 40 mg SC DAILY [facility]; Protocol Last Admin: 01/28/19 10:09 Dose: 40 mg Amino Acids/Electrolytes/Dextrose (Clinimix E 4.25/10 1000 Ml) 1,000 mls @ 83 mls/hr IV .Q12H3M ONE Stop: 01/28/19 15:02 Last Admin: 01/28/19 03:47 Dose: 83 mls/hr Ketorolac Tromethamine (Toradol) 15 mg IVP Q6 PRN PRN Reason: Pain, moderate (4-7) Last Admin: 01/26/19 21:58 Dose: 15 mg Lidocaine (Lidoderm) 1 ea TD DAILY [facility] Last Admin: 01/28/19 10:08 Dose: 1 ea Mirtazapine (Remeron) 30 mg PO HS [facility] Last Admin: 01/27/19 23:13 Dose: 30 mg Pantoprazole Sodium (Protonix Inj) 40 mg IVP DAILY [facility] Last Admin: 01/28/19 10:09 Dose: 40 mg Phenol/Menthol (Phenaseptic 1.4% Throat [place]) 1 spry MT Q2 PRN PRN Reason: Sore Throat Physical Exam - Constitutional Appears: No Acute Distress - Respiratory Exam Respiratory Exam: absent: Rales, Rhonchi, Wheezes, Respiratory Distress - Cardiovascular Exam Cardiovascular Exam: REGULAR RHYTHM, +S1, +S2 Results - Vital Signs Recent Vital Signs: Last Vital Signs Temp 98.4 F 01/28/19 08:27 Pulse 97 H 01/28/19 08:27 Resp 20 01/28/19 08:27 BP 114/80 01/28/19 08:27 Pulse Ox 95 01/28/19 08:27 - Labs Result Diagrams: 01/28/19 06:20 01/28/19 06:20 Labs: Laboratory Results - last 24 hr 01/23/19 01/28/19 01/28/19 10:00 06:20 06:20 WBC 7.5 RBC 3.67 L Hgb 11.0 L Hct 33.5 L MCV 91.3 D MCH 29.9 MCHC 32.7 L RDW 14.0 Plt Count 346 MPV 8.5 Neut % (Auto) 73.8 Lymph % (Auto) 12.0 L [place] % (Auto) 6.2 Eos % (Auto) 7.9 H Baso % (Auto) 0.1 Neut # (Auto) 5.6 Lymph # (Auto) 0.9 L [place] # (Auto) 0.5 Eos # (Auto) 0.6 Baso # (Auto) 0.0 Sodium 141 Potassium 4.2 Chloride 107 Carbon Dioxide 26 Anion Gap 12 BUN 11 Creatinine 0.4 L Est GFR ( Amer) > 60 Est GFR (Non-Af Amer) > 60 Random Glucose 136 H Calcium 9.4 Phosphorus 4.0 Magnesium 2.4 H Total Bilirubin 0.3 AST 16 ALT 28 Alkaline Phosphatase 104 Total Protein 6.4 Albumin 3.5 Globulin 2.9 Albumin/Globulin Ratio 1.2 Urine Total Volume 3500 Assessment & Plan (1) Anxiety Status: Chronic Comment: patient did not have medical issue for us to address. we recommend that patient be referred to psychiatry to assess the need for further treatment with or adjustment of Remeron and Clozaril
--- NOTE | 2019-01-28 12:43 | CP.PCM.PN ---
<Radhika Jay - Last Filed: 01/28/19 15:14> Subjective - Date & Time of Evaluation Date of Evaluation: 01/28/19 Time of Evaluation: 12:41 - Subjective Subjective: General Surgery Progress Note for Dr. Tinoco 38 y/o female patient was seen and examined at bedside this AM. Patient lying in bed, slightly pale seen to be having active hallucinations. Patient denies passing gas or having bowel movements. No acute events reported overnight. Pain has improved and is controlled. She denies fevers/chills or nausea/vomiting. NGT with 650 cc bilious output over 24 hours. She is NPO and receiving TPN. Patient allowed gum/hard candy for bowel stimulation. Encourage OOB to chair. Objective - Vital Signs/Intake and Output Vital Signs (last 24 hours): Temp Pulse Resp BP Pulse Ox 98.4 F 97 H 20 114/80 95 01/28/19 08:27 01/28/19 08:27 01/28/19 08:27 01/28/19 08:27 01/28/19 08:27 Intake and Output: 01/28/19 01/28/19 06:59 18:59 Intake Total 1200 Output Total 325 Balance 875 - Medications Medications: Current Medications Acetaminophen (Tylenol 650 Mg Supp) 650 mg SD Q6 PRN PRN Reason: Pain, moderate (4-7) Benzocaine/Menthol (Cepacol Sore Throat) 1 rebecca PO Q3 PRN PRN Reason: Sore Throat Last Admin: 01/21/19 16:55 Dose: 1 rebecca Clozapine (Clozaril) 300 mg PO Q12H [facility] Last Admin: 01/28/19 10:08 Dose: 300 mg Docusate Sodium (Colace Liquid) 100 mg NG BID [facility] Last Admin: 01/28/19 10:08 Dose: 100 mg Enoxaparin Sodium (Lovenox) 40 mg SC DAILY [facility]; Protocol Last Admin: 01/28/19 10:09 Dose: 40 mg Amino Acids/Electrolytes/Dextrose (Clinimix E 4.25/10 1000 Ml) 1,000 mls @ 83 mls/hr IV .Q12H3M ONE Stop: 01/28/19 15:02 Last Admin: 01/28/19 03:47 Dose: 83 mls/hr Ketorolac Tromethamine (Toradol) 15 mg IVP Q6 PRN PRN Reason: Pain, moderate (4-7) Last Admin: 01/26/19 21:58 Dose: 15 mg Lidocaine (Lidoderm) 1 ea TD DAILY [facility] Last Admin: 01/28/19 10:08 Dose: 1 ea Mirtazapine (Remeron) 30 mg PO HS [facility] Last Admin: 01/27/19 23:13 Dose: 30 mg Pantoprazole Sodium (Protonix Inj) 40 mg IVP DAILY [facility] Last Admin: 01/28/19 10:09 Dose: 40 mg Phenol/Menthol (Phenaseptic 1.4% Throat [place]) 1 spry MT Q2 PRN PRN Reason: Sore Throat - Labs Labs: 01/28/19 06:20 01/28/19 06:20 PT 21.4 Seconds (9.8-13.1) H 01/23/19 05:45 INR 1.9 01/23/19 05:45 APTT 27.7 Seconds (25.6-37.1) 01/15/19 05:20 - Constitutional Appears: Non-toxic, No Acute Distress - Head Exam Head Exam: ATRAUMATIC, NORMOCEPHALIC - Eye Exam Eye Exam: Normal appearance - ENT Exam ENT Exam: Mucous Membranes Dry - Respiratory Exam Respiratory Exam: Clear to Ausculation Bilateral. absent: Accessory Muscle Use, Respiratory Distress - Cardiovascular Exam Cardiovascular Exam: REGULAR RHYTHM, +S1, +S2 - GI/Abdominal Exam GI & Abdominal Exam: Soft, Tenderness. absent: Distended, Firm, Guarding, Rebound Additional comments: incision sites well coapted, slightly tender, no drainage noted - Skin Skin Exam: Dry, Pallor, Warm Assessment and Plan - Assessment and Plan (Free Text) Assessment: 38 y/o female s/p push enteroscopy, diagnostic laparoscopy converted to open with STEFFEN and small bowel resection Plan: -NPO Diet -May have gum/hard candy for bowel simulation -continue NGT to low intermittent suction -Continue IV Fluids -replace electrolytes PRN -TPN -Pain control -Strict I's & O's -OOB to chair/Ambulation/incentive spirometry -PT -Medicine consult, Dr. Ramirez for medical management -Psychiatry consult, Dr. Mohan for schizophrenia Case discussed with Dr. Islas PGY1 <Franklyn Valencia N - Last Filed: 01/31/19 09:42> Objective - Vital Signs/Intake and Output Vital Signs (last 24 hours): Temp Pulse Resp BP Pulse Ox 97.7 F 100 H 18 107/70 96 01/31/19 05:00 01/31/19 05:00 01/31/19 05:00 01/31/19 05:00 01/31/19 05:00 - Medications Medications: Current Medications Acetaminophen (Tylenol 650 Mg Supp) 650 mg SD Q6 PRN PRN Reason: Pain, moderate (4-7) Benzocaine/Menthol (Cepacol Sore Throat) 1 rebecca PO Q3 PRN PRN Reason: Sore Throat Last Admin: 01/21/19 16:55 Dose: 1 rebecca Chlorpromazine (Thorazine) 50 mg IM Q6 PRN PRN Reason: agitation Last Admin: 01/31/19 01:16 Dose: 50 mg Clozapine (Clozaril) 300 mg PO Q12H [facility] Last Admin: 01/31/19 01:23 Dose: Not Given Diphenhydramine HCl (Benadryl) 25 mg IM Q6 PRN PRN Reason: Allergy symptoms Last Admin: 01/31/19 01:17 Dose: 25 mg Docusate Sodium (Colace Liquid) 100 mg NG BID [facility] Last Admin: 01/31/19 09:23 Dose: Not Given Enoxaparin Sodium (Lovenox) 40 mg SC DAILY [facility]; Protocol Last Admin: 01/31/19 08:28 Dose: 40 mg Potassium Chloride/Dextrose/Sod Cl (Potassium Chl 20 Meq In D5-1/2ns) 1,000 mls @ 125 mls/hr IV .Q8H [facility] Stop: 01/31/19 17:42 Last Admin: 01/31/19 09:18 Dose: 125 mls/hr Lidocaine (Lidoderm) 1 ea TD DAILY [facility] Last Admin: 01/31/19 09:18 Dose: Not Given Lorazepam (Ativan) 1 mg IM Q6H PRN PRN Reason: Agitation Last Admin: 01/31/19 01:17 Dose: 1 mg Mirtazapine (Remeron) 30 mg PO HS [facility] Last Admin: 01/30/19 22:14 Dose: Not Given Ondansetron HCl (Zofran Inj) 4 mg IVP Q4 PRN PRN Reason: Nausea/Vomiting Last Admin: 01/30/19 17:43 Dose: 4 mg Pantoprazole Sodium (Protonix Inj) 40 mg IVP DAILY [facility] Last Admin: 01/31/19 09:17 Dose: 40 mg - Labs Labs: 01/30/19 15:51 01/30/19 15:51 PT 21.4 Seconds (9.8-13.1) H 01/23/19 05:45 INR 1.9 01/23/19 05:45 APTT 27.7 Seconds (25.6-37.1) 01/15/19 05:20 Assessment and Plan - Assessment and Plan (Free Text) Plan: All medical record entries made by the resident were at my direction. I have reviewed the chart and agree that the record accurately reflects my personal performance of the history, physical exam, and medical decision making for this patient.
[2019-01-28] MEDS ORDERED: [UNRECOGNIZED DRUG - OTHER] IV ONE (13:00)
[2019-01-28] MEDS ORDERED: CHROMIUM IV ONE (13:00)
[2019-01-28] MEDS ORDERED: COPPER IV ONE (13:00)
[2019-01-28] MEDS ORDERED: MANGANESE IV ONE (13:00)
[2019-01-28] MEDS ORDERED: MULTIVITAMIN IV ONE (13:00)
[2019-01-28] MEDS ORDERED: Lactated Ringer's 500 ML IV SCH (13:00)
[2019-01-28] MEDS ORDERED: ZINC IV ONE (13:00)
--- NOTE | 2019-01-28 13:26 | CP.PCM.PN ---
<Viktor Temple - Last Filed: 01/28/19 14:18> Subjective - Date & Time of Evaluation Date of Evaluation: 01/28/19 Time of Evaluation: 13:30 - Subjective Subjective: PGY-4 GI Fellow Prog Note Pt seen and examined with PM. States abd pain a little better, but denied any flatus or BM. 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 5 point ROS negative other than stated above Objective - Vital Signs/Intake and Output Vital Signs (last 24 hours): Temp Pulse Resp BP Pulse Ox 98.4 F 97 H 20 114/80 95 01/28/19 08:27 01/28/19 08:27 01/28/19 08:27 01/28/19 08:27 01/28/19 08:27 Intake and Output: 01/28/19 01/28/19 06:59 18:59 Intake Total 1200 Output Total 325 Balance 875 - Medications Medications: Current Medications Acetaminophen (Tylenol 650 Mg Supp) 650 mg [place] Q6 PRN PRN Reason: Pain, moderate (4-7) Benzocaine/Menthol (Cepacol Sore Throat) 1 rebecca PO Q3 PRN PRN Reason: Sore Throat Last Admin: 01/21/19 16:55 Dose: 1 rebecca Clozapine (Clozaril) 300 mg PO Q12H [facility] Last Admin: 01/28/19 10:08 Dose: 300 mg Docusate Sodium (Colace Liquid) 100 mg NG BID [facility] Last Admin: 01/28/19 10:08 Dose: 100 mg Enoxaparin Sodium (Lovenox) 40 mg SC DAILY [facility]; Protocol Last Admin: 01/28/19 10:09 Dose: 40 mg Fat Emulsion Intravenous (Intralipid 20%) 250 ml IV ONCE ONE Stop: 01/28/19 15:01 Amino Acids/Electrolytes/Dextrose (Clinimix E 4.25/10 1000 Ml) 1,000 mls @ 83 mls/hr IV .Q12H3M ONE Stop: 01/28/19 15:02 Last Admin: 01/28/19 03:47 Dose: 83 mls/hr Chromium/Copper/Manganese/Zinc 3 ml/ Multivitamins/Vitamin C 10 ml/ Amino Acids/Electrolytes/Dextrose 1,013 mls @ 83 mls/hr IV .[id number] ONE Stop: 01/29/19 01:12 Amino Acids/Electrolytes/Dextrose (Clinimix E 4.25/10 1000 Ml) 1,000 mls @ 83 mls/hr IV .Q12H3M ONE Stop: 01/29/19 15:02 Ketorolac Tromethamine (Toradol) 15 mg IVP Q6 PRN PRN Reason: Pain, moderate (4-7) Last Admin: 01/26/19 21:58 Dose: 15 mg Lidocaine (Lidoderm) 1 ea TD DAILY [facility] Last Admin: 01/28/19 10:08 Dose: 1 ea Mirtazapine (Remeron) 30 mg PO HS [facility] Last Admin: 01/27/19 23:13 Dose: 30 mg Pantoprazole Sodium (Protonix Inj) 40 mg IVP DAILY [facility] Last Admin: 01/28/19 10:09 Dose: 40 mg Phenol/Menthol (Phenaseptic 1.4% Throat [place]) 1 spry MT Q2 PRN PRN Reason: Sore Throat - Labs Labs: 01/28/19 06:20 01/28/19 06:20 PT 21.4 Seconds (9.8-13.1) H 01/23/19 05:45 INR 1.9 01/23/19 05:45 APTT 27.7 Seconds (25.6-37.1) 01/15/19 05:20 - Constitutional Appears: No Acute Distress, Chronically Ill - Head Exam Head Exam: ATRAUMATIC, NORMAL INSPECTION - Eye Exam Eye Exam: EOMI. absent: Scleral icterus - ENT Exam ENT Exam: Mucous Membranes Dry. absent: Mucous Membranes Moist Additional comments: NG in place with at least 600 mL bilious output - Respiratory Exam Respiratory Exam: NORMAL BREATHING PATTERN. absent: Accessory Muscle Use, Respiratory Distress - GI/Abdominal Exam GI & Abdominal Exam: Distended (mildly but improved), Guarding (vol), Soft, Tenderness (mostly on L side w/o guarding), Hypoactive Bowel Sounds. absent: Bruit, Firm, Rigid, Pulsatile Mass Assessment and Plan - Assessment and Plan (Free Text) Assessment: 38 yo WF with CP, h/o cholecystectomy, Anxiety and schizophrenia present with SBO. S/P adhesion lysis, surgically assisted push enteroscopy, Open lysis of adhesions, Small Bowel resection with primary side to side anastamoses, incidental appendectomy. SBO s/p as above Abd pain 2/2 above Post-op Ileus, opiod induced contributing Plan: -NG and diet as per gen surg -Awaiting path results -24hr 5-HIAA urine pending, collected -Pain management per gen surgery, limit narcs as able, use lowest effective dose -Serial abd exams -Encourage OOB to chair, PT, IS -Optimize electrolytes -Agree with Medicine and Psychiatry consults Thank you for the consult. Will sign off, please call if questions. Pt seen and examined with Dr. Barker; please see attestation for further recs/changes. <Becki Barker - Last Filed: 01/28/19 14:28> Objective - Vital Signs/Intake and Output Vital Signs (last 24 hours): Temp Pulse Resp BP Pulse Ox 98.4 F 97 H 20 114/80 95 01/28/19 08:27 01/28/19 08:27 01/28/19 08:27 01/28/19 08:27 01/28/19 08:27 Intake and Output: 01/28/19 01/28/19 06:59 18:59 Intake Total 1200 Output Total 325 Balance 875 - Medications Medications: Current Medications Acetaminophen (Tylenol 650 Mg Supp) 650 mg [place] Q6 PRN PRN Reason: Pain, moderate (4-7) Benzocaine/Menthol (Cepacol Sore Throat) 1 rebecca PO Q3 PRN PRN Reason: Sore Throat Last Admin: 01/21/19 16:55 Dose: 1 rebecca Clozapine (Clozaril) 300 mg PO Q12H [facility] Last Admin: 01/28/19 10:08 Dose: 300 mg Docusate Sodium (Colace Liquid) 100 mg NG BID [facility] Last Admin: 01/28/19 10:08 Dose: 100 mg Enoxaparin Sodium (Lovenox) 40 mg SC DAILY [facility]; Protocol Last Admin: 01/28/19 10:09 Dose: 40 mg Fat Emulsion Intravenous (Intralipid 20%) 250 ml IV ONCE ONE Stop: 01/28/19 15:01 Amino Acids/Electrolytes/Dextrose (Clinimix E 4.25/10 1000 Ml) 1,000 mls @ 83 mls/hr IV .Q12H3M ONE Stop: 01/28/19 15:02 Last Admin: 01/28/19 03:47 Dose: 83 mls/hr Chromium/Copper/Manganese/Zinc 3 ml/ Multivitamins/Vitamin C 10 ml/ Amino Acids/Electrolytes/Dextrose 1,013 mls @ 83 mls/hr IV .[id number] ONE Stop: 01/29/19 01:12 Amino Acids/Electrolytes/Dextrose (Clinimix E 4.25/10 1000 Ml) 1,000 mls @ 83 mls/hr IV .Q12H3M ONE Stop: 01/29/19 15:02 Ketorolac Tromethamine (Toradol) 15 mg IVP Q6 PRN PRN Reason: Pain, moderate (4-7) Last Admin: 01/26/19 21:58 Dose: 15 mg Lidocaine (Lidoderm) 1 ea TD DAILY [facility] Last Admin: 01/28/19 10:08 Dose: 1 ea Mirtazapine (Remeron) 30 mg PO HS [facility] Last Admin: 01/27/19 23:13 Dose: 30 mg Pantoprazole Sodium (Protonix Inj) 40 mg IVP DAILY [facility] Last Admin: 01/28/19 10:09 Dose: 40 mg Phenol/Menthol (Phenaseptic 1.4% Throat [place]) 1 spry MT Q2 PRN PRN Reason: Sore Throat - Labs Labs: 01/28/19 06:20 01/28/19 06:20 PT 21.4 Seconds (9.8-13.1) H 01/23/19 05:45 INR 1.9 01/23/19 05:45 APTT 27.7 Seconds (25.6-37.1) 01/15/19 05:20 Attending/Attestation - Attestation I have personally seen and examined this patient.: Yes I have fully participated in the care of the patient.: Yes I have reviewed all pertinent clinical information, including history, physical exam and plan: Yes Notes (Text): 01/28/19 14:26 I have seen and examined this patient with the GI fellow. Not passing flatus, but abdomen appears improved. Had one episode of flatus yesterday. Started on Clinimix. 725 cc out of NGT thus far. Encouraged incentive spirometry and OOB to chair. Goal K>4, Phos > 2.5. Will sign off, pls call with questions. 01/28/19 14:27
[2019-01-29] MEDS ORDERED: Amino/Dex E 4.25/10 1000 ML 1,000 ML IV ONE ×2 (03:00→15:00)
--- NOTE | 2019-01-29 07:56 | RAD ---
Date of service: 01/28/2019 HISTORY: obstruction COMPARISON: Abdomen pelvis CT with and without contrast 01/18/2019. TECHNIQUE: 1 view obtained. FINDINGS: BOWEL: Oral contrast is identified and proximal as well as distal small bowel loops with nonobstructive bowel gas pattern appreciated overall. Surgical clips in the right upper quadrant and chain sutures are identified at the left flank related to a loop of bowel. No large free intra peritoneal gas collection identified. BONES: Normal. OTHER FINDINGS: None. IMPRESSION: Nonobstructive bowel gas pattern appreciated. Surgical clips are seen at the right upper quadrant with chain sutures at the left flank as well.
--- NOTE | 2019-01-29 09:39 | CP.PCM.CON ---
History of Present Illness - History of Present Illness History of Present Illness: consult requested as pt is increasingly disorganized and refusing medications history obtained through chart review as pt is not answering any questions Pt is a 38 yo F with h/o Cerebral Palsy, Schizophrenia, Anxiety who presented on 01/14/19 with days of abdominal pain, bilious emesis, without bowel movement nor flatus. She was admitted and had surgery for small bowel obstruction pt has been receiving clozaril 300mg bid and remeron 30mg qhs through the NG tube tube was removed yesterday and since then pt has been refusing the oral medications on evaluation pt presents as floridly psychotic, internally preoccupied, eyes closed, no eye contact, refusing to answer any questions and continues on reciting prayers unable to further assess her mental status as pt is uncooperative Past Patient History - Past Medical History & Family History Past Medical History?: Yes - Past Social History Alcohol: None - CARDIAC Hx Pacemaker: No - PULMONARY Hx Respiratory Disorders: No - NEUROLOGICAL Hx Seizures: Yes - HEENT Hx HEENT Problems: No - RENAL Hx Chronic Kidney Disease: No - ENDOCRINE/METABOLIC Hx Endocrine Disorders: No - HEMATOLOGICAL/ONCOLOGICAL Hx Cancer: No - INTEGUMENTARY Hx Dermatological Problems: No - MUSCULOSKELETAL/RHEUMATOLOGICAL Hx Musculoskeletal Disorders: No Hx Falls: No - GASTROINTESTINAL Hx Gastrointestinal Disorders: No - GENITOURINARY/GYNECOLOGICAL Hx Genitourinary Disorders: No - PSYCHIATRIC Hx Substance Use: No - SURGICAL HISTORY Hx Mastectomy: No - ANESTHESIA Hx Anesthesia: Yes Hx Anesthesia Reactions: No Hx Malignant Hyperthermia: No Has any member of the family had a problem w/ anesthesia?: No Meds Allergies/Adverse Reactions: Allergies Allergy/AdvReac Type Severity Reaction Status Date / Time haloperidol [From Haldol] Allergy RASH Verified 01/14/19 19:41 latex Allergy RASH Verified 01/14/19 19:41 lithium Allergy RASH Verified 01/14/19 19:41 - Medications Medications: Current Medications Acetaminophen (Tylenol 650 Mg Supp) 650 mg [place] Q6 PRN PRN Reason: Pain, moderate (4-7) Benzocaine/Menthol (Cepacol Sore Throat) 1 rebecca PO Q3 PRN PRN Reason: Sore Throat Last Admin: 01/21/19 16:55 Dose: 1 rebecca Clozapine (Clozaril) 300 mg PO Q12H [facility] Last Admin: 01/29/19 00:08 Dose: Not Given Docusate Sodium (Colace Liquid) 100 mg NG BID [facility] Last Admin: 01/28/19 16:14 Dose: 100 mg Enoxaparin Sodium (Lovenox) 40 mg SC DAILY [facility]; Protocol Last Admin: 01/28/19 10:09 Dose: 40 mg Amino Acids/Electrolytes/Dextrose (Clinimix E 4.25/10 1000 Ml) 1,000 mls @ 83 mls/hr IV .Q12H3M ONE Stop: 01/29/19 15:02 Last Admin: 01/29/19 03:05 Dose: 83 mls/hr Lidocaine (Lidoderm) 1 ea TD DAILY [facility] Last Admin: 01/28/19 10:08 Dose: 1 ea Mirtazapine (Remeron) 30 mg PO HS [facility] Last Admin: 01/29/19 00:10 Dose: Not Given Pantoprazole Sodium (Protonix Inj) 40 mg IVP DAILY [facility] Last Admin: 01/28/19 10:09 Dose: 40 mg Physical Exam - Psychiatric Exam Additional comments: pt on evaluation lying on the side,unkempt, eyes closed, not answering any questions, internally preoccupied continues to repeat the same prayer unable to further assess mental status Results - Vital Signs Recent Vital Signs: Last Vital Signs Temp 98.4 F 01/28/19 08:27 Pulse 97 H 01/28/19 08:27 Resp 20 01/28/19 08:27 BP 114/80 01/28/19 08:27 Pulse Ox 95 01/28/19 08:27 - Labs Result Diagrams: 01/28/19 06:20 01/28/19 06:20 Assessment & Plan - Assessment and Plan (Free Text) Assessment: schizophrenia Plan: recommend starting zyprexa zydis 10mg po bid , if refuses give zyprexa 10 IMQ12 PRN FOR AGITATION continue with CLOZARIL 300MG BID, encourage oral medication compliance reduce remeron to 15mg qhs if pt continues to refuse medications, upon medical clearance, pt needs to be screened for involuntary psychiatric admision for further stabilization
[2019-01-29] MEDS: Lidocaine 5% Patch TD SCH (10:11)
[2019-01-29] MEDS: Enoxaparin 40 mg Syringe SC SCH (10:11)
[2019-01-29] MEDS ORDERED: CHROMIUM IV ONE (15:00)
[2019-01-29] MEDS ORDERED: MULTIVITAMIN IV ONE (15:00)
[2019-01-29] MEDS ORDERED: [UNRECOGNIZED DRUG - OTHER] IV ONE (15:00)
[2019-01-29] MEDS ORDERED: COPPER IV ONE (15:00)
[2019-01-29] MEDS ORDERED: MANGANESE IV ONE (15:00)
[2019-01-29] MEDS ORDERED: ELECTROLYTES IV ONE (15:00)
[2019-01-29] MEDS ORDERED: ZINC IV ONE (15:00)
[2019-01-30] MEDS ORDERED: Amino/Dex E 4.25/10 1000 ML 1,000 ML IV ONE (03:00)
[2019-01-30 06:35] LABS: BASO # 0.1 K/uL (0.0-0.2); BASO % 0.5 % (0.0-2.0); EOS # 0.4 K/uL (0.0-0.7); EOS % 2.9 % (0.0-4.0); HEMOGLOBIN 12.8 g/dL (12.0-16.0); LYMPH # 1.5 K/uL (1.0-4.3); LYMPH % 11.3 % (20.0-40.0); MEAN CELL VOLUME 89.2 fl (81.0-99.0); MEAN CORPUSCULAR HEMOGLOBIN 29.7 pg (27.0-31.0); MEAN CORPUSCULAR HGB CONC 33.3 g/dL (33.0-37.0); MEAN PLATELET VOLUME 8.7 fl (7.2-11.7); MONO % 7.7 % (0.0-10.0); NEUT # 10.4 K/uL (1.8-7.0); NEUT % 77.6 % (50.0-75.0); NRBC % 0.1 % (0.0-0.0); RBC 4.32 Mil/uL (3.80-5.20); RED CELL DISTRIBUTION WIDTH 13.5 % (11.5-14.5); WHITE BLOOD COUNT 13.4 K/uL (4.8-10.8)
[2019-01-30 06:51] LABS: ALB/GLOB RATIO 1.2 (1.0-2.1); ALBUMIN 4.1 g/dL (3.5-5.0); ALT/SGPT 93 U/L (9-52); AST/SGOT 82 U/L (14-36); BLOOD UREA NITROGEN 21 mg/dl (7-17); CALCIUM 9.7 mg/dL (8.4-10.2); GFR NON-AFRICAN AMERICAN > 60
[2019-01-30] MEDS: Enoxaparin 40 mg Syringe SC SCH (08:55)
[2019-01-30] MEDS: Lidocaine 5% Patch TD SCH (08:59)
--- NOTE | 2019-01-30 11:49 | CP.PCM.PN ---
<Milton Zamudio - Last Filed: 01/30/19 11:47> Subjective - Date & Time of Evaluation Date of Evaluation: 01/29/19 Time of Evaluation: 08:00 - Subjective Subjective: General Surgery Note for Dr. Tinoco Patient seen and examined at bedside. Overnight, patient developed psychosis and resistant hallucinations. Patient refusing oral medications. Psych was consulted and recommended IM Zyprexa until tolerating oral clozapine. Objective - Vital Signs/Intake and Output Vital Signs (last 24 hours): Temp Pulse Resp BP Pulse Ox 98.1 F 101 H 18 107/74 97 01/30/19 03:20 01/30/19 03:20 01/30/19 03:20 01/30/19 03:20 01/30/19 03:20 - Medications Medications: Current Medications Acetaminophen (Tylenol 650 Mg Supp) 650 mg [place] Q6 PRN PRN Reason: Pain, moderate (4-7) Benzocaine/Menthol (Cepacol Sore Throat) 1 rebecca PO Q3 PRN PRN Reason: Sore Throat Last Admin: 01/21/19 16:55 Dose: 1 rebecca Clozapine (Clozaril) 300 mg PO Q12H [facility] Last Admin: 01/30/19 10:52 Dose: Not Given Docusate Sodium (Colace Liquid) 100 mg NG BID [facility] Last Admin: 01/30/19 10:52 Dose: Not Given Enoxaparin Sodium (Lovenox) 40 mg SC DAILY [facility]; Protocol Last Admin: 01/30/19 08:55 Dose: 40 mg Amino Acids/Electrolytes/Dextrose (Clinimix E 4.25/10 1000 Ml) 1,000 mls @ 83 mls/hr IV .Q12H3M ONE Stop: 01/30/19 15:02 Last Admin: 01/30/19 05:04 Dose: 83 mls/hr Lidocaine (Lidoderm) 1 ea TD DAILY [facility] Last Admin: 01/30/19 08:59 Dose: 1 ea Mirtazapine (Remeron) 30 mg PO HS [facility] Last Admin: 01/29/19 21:26 Dose: Not Given Olanzapine (Zyprexa Inj) 10 mg IM Q12H PRN PRN Reason: Agitation Pantoprazole Sodium (Protonix Inj) 40 mg IVP DAILY [facility] Last Admin: 01/30/19 10:52 Dose: Not Given - Labs Labs: 01/30/19 06:27 01/30/19 06:27 PT 21.4 Seconds (9.8-13.1) H 01/23/19 05:45 INR 1.9 01/23/19 05:45 APTT 27.7 Seconds (25.6-37.1) 01/15/19 05:20 - Constitutional Appears: Other (hallucinating and in state of psychosis) - Head Exam Head Exam: ATRAUMATIC, NORMOCEPHALIC - Eye Exam Eye Exam: EOMI, Normal appearance Pupil Exam: PERRL - ENT Exam ENT Exam: Mucous Membranes Moist - Respiratory Exam Respiratory Exam: Clear to Ausculation Bilateral - Cardiovascular Exam Cardiovascular Exam: REGULAR RHYTHM - GI/Abdominal Exam GI & Abdominal Exam: Soft, Normal Bowel Sounds. absent: Distended, Guarding, Rigid, Tenderness, Hernia, Rebound - Extremities Exam Extremities Exam: Normal Capillary Refill - Back Exam Back Exam: absent: CVA tenderness (L), CVA tenderness (R) - Neurological Exam Neurological Exam: Altered - Psychiatric Exam Psychiatric exam: Flat Affect - Skin Skin Exam: Dry, Intact, Warm Assessment and Plan - Assessment and Plan (Free Text) Assessment: 38 F who presented with SBO s/p exlap, s/p push enteroscopy and diagnostic lap converted open with SBR/anastomosis Plan: -NPO until psychosis resolves -Zyprexa IM Q12H -Clozapine if cooperative -Monitor bowel function -discussed with Dr. Gunter PGY2 <Franklyn Valencia - Last Filed: 01/30/19 13:01> Objective - Vital Signs/Intake and Output Vital Signs (last 24 hours): Temp Pulse Resp BP Pulse Ox 98.1 F 101 H 18 107/74 97 01/30/19 03:20 01/30/19 03:20 01/30/19 03:20 01/30/19 03:20 01/30/19 03:20 - Medications Medications: Current Medications Acetaminophen (Tylenol 650 Mg Supp) 650 mg [place] Q6 PRN PRN Reason: Pain, moderate (4-7) Benzocaine/Menthol (Cepacol Sore Throat) 1 rebecca PO Q3 PRN PRN Reason: Sore Throat Last Admin: 01/21/19 16:55 Dose: 1 rebecca Clozapine (Clozaril) 300 mg PO Q12H [facility] Last Admin: 01/30/19 10:52 Dose: Not Given Docusate Sodium (Colace Liquid) 100 mg NG BID [facility] Last Admin: 01/30/19 10:52 Dose: Not Given Enoxaparin Sodium (Lovenox) 40 mg SC DAILY [facility]; Protocol Last Admin: 01/30/19 08:55 Dose: 40 mg Amino Acids/Electrolytes/Dextrose (Clinimix E 4.25/10 1000 Ml) 1,000 mls @ 83 mls/hr IV .Q12H3M ONE Stop: 01/30/19 15:02 Last Admin: 01/30/19 05:04 Dose: 83 mls/hr Lidocaine (Lidoderm) 1 ea TD DAILY [facility] Last Admin: 01/30/19 08:59 Dose: 1 ea Mirtazapine (Remeron) 30 mg PO HS [facility] Last Admin: 01/29/19 21:26 Dose: Not Given Olanzapine (Zyprexa Inj) 10 mg IM Q12H PRN PRN Reason: Agitation Pantoprazole Sodium (Protonix Inj) 40 mg IVP DAILY [facility] Last Admin: 01/30/19 10:52 Dose: Not Given - Labs Labs: 01/30/19 06:27 01/30/19 06:27 PT 21.4 Seconds (9.8-13.1) H 01/23/19 05:45 INR 1.9 01/23/19 05:45 APTT 27.7 Seconds (25.6-37.1) 01/15/19 05:20 Assessment and Plan - Assessment and Plan (Free Text) Assessment: All medical record entries made by the resident were at my direction. I have reviewed the chart and agree that the record accurately reflects my personal performance of the history, physical exam, medical decision making.
--- NOTE | 2019-01-30 13:49 | CP.PCM.CON ---
History of Present Illness - History of Present Illness History of Present Illness: follow up consult Pt is a 38 yo F with h/o Cerebral Palsy, Schizophrenia, Anxiety who presented on 01/14/19 with days of abdominal pain, bilious emesis, without bowel movement nor flatus. She was admitted and had surgery for small bowel obstruction, pt has been receiving clozaril 300mg bid and remeron 30mg qhs through the NG tube tube was removed yesterday and since then pt has been refusing the oral medications pt has received zyprexa Im with temporary improvement of mental status , followed by change in mental status, pt again refusing oral medications, no eye contact internally preoccupied talking to self reciting prayers and disrobing herself unable to further assess her mental status as pt is uncooperative Past Patient History - Past Medical History & Family History Past Medical History?: Yes - Past Social History Alcohol: None - CARDIAC Hx Pacemaker: No - PULMONARY Hx Respiratory Disorders: No - NEUROLOGICAL Hx Seizures: Yes - HEENT Hx HEENT Problems: No - RENAL Hx Chronic Kidney Disease: No - ENDOCRINE/METABOLIC Hx Endocrine Disorders: No - HEMATOLOGICAL/ONCOLOGICAL Hx Cancer: No - INTEGUMENTARY Hx Dermatological Problems: No - MUSCULOSKELETAL/RHEUMATOLOGICAL Hx Musculoskeletal Disorders: No Hx Falls: No - GASTROINTESTINAL Hx Gastrointestinal Disorders: No - GENITOURINARY/GYNECOLOGICAL Hx Genitourinary Disorders: No - PSYCHIATRIC Hx Substance Use: No - SURGICAL HISTORY Hx Mastectomy: No - ANESTHESIA Hx Anesthesia: Yes Hx Anesthesia Reactions: No Hx Malignant Hyperthermia: No Has any member of the family had a problem w/ anesthesia?: No Meds Allergies/Adverse Reactions: Allergies Allergy/AdvReac Type Severity Reaction Status Date / Time haloperidol [From Haldol] Allergy RASH Verified 01/14/19 19:41 latex Allergy RASH Verified 01/14/19 19:41 lithium Allergy RASH Verified 01/14/19 19:41 - Medications Medications: Current Medications Acetaminophen (Tylenol 650 Mg Supp) 650 mg NE Q6 PRN PRN Reason: Pain, moderate (4-7) Benzocaine/Menthol (Cepacol Sore Throat) 1 rebecca PO Q3 PRN PRN Reason: Sore Throat Last Admin: 01/21/19 16:55 Dose: 1 rebecca Clozapine (Clozaril) 300 mg PO Q12H [facility] Last Admin: 01/30/19 10:52 Dose: Not Given Docusate Sodium (Colace Liquid) 100 mg NG BID [facility] Last Admin: 01/30/19 10:52 Dose: Not Given Enoxaparin Sodium (Lovenox) 40 mg SC DAILY [facility]; Protocol Last Admin: 01/30/19 08:55 Dose: 40 mg Amino Acids/Electrolytes/Dextrose (Clinimix E 4.25/10 1000 Ml) 1,000 mls @ 83 mls/hr IV .Q12H3M ONE Stop: 01/30/19 15:02 Last Admin: 01/30/19 05:04 Dose: 83 mls/hr Lidocaine (Lidoderm) 1 ea TD DAILY [facility] Last Admin: 01/30/19 08:59 Dose: 1 ea Mirtazapine (Remeron) 30 mg PO HS [facility] Last Admin: 01/29/19 21:26 Dose: Not Given Olanzapine (Zyprexa Inj) 10 mg IM Q12H PRN PRN Reason: Agitation Pantoprazole Sodium (Protonix Inj) 40 mg IVP DAILY [facility] Last Admin: 01/30/19 10:52 Dose: Not Given Results - Vital Signs Recent Vital Signs: Last Vital Signs Temp 98.1 F 01/30/19 03:20 Pulse 101 H 01/30/19 03:20 Resp 18 01/30/19 03:20 BP 107/74 01/30/19 03:20 Pulse Ox 97 01/30/19 03:20 - Labs Result Diagrams: 01/30/19 06:27 01/30/19 06:27 Labs: Laboratory Results - last 24 hr 01/23/19 01/30/19 01/30/19 10:00 06:27 06:27 WBC 13.4 H D RBC 4.32 Hgb 12.8 Hct 38.5 MCV 89.2 D MCH 29.7 MCHC 33.3 RDW 13.5 Plt Count 392 MPV 8.7 Neut % (Auto) 77.6 H Lymph % (Auto) 11.3 L [place] % (Auto) 7.7 Eos % (Auto) 2.9 Baso % (Auto) 0.5 Neut # (Auto) 10.4 H Lymph # (Auto) 1.5 [place] # (Auto) 1.0 H Eos # (Auto) 0.4 Baso # (Auto) 0.1 Sodium 141 Potassium 4.0 Chloride 104 Carbon Dioxide 26 Anion Gap 15 BUN 21 H Creatinine 0.4 L Est GFR ( Amer) > 60 Est GFR (Non-Af Amer) > 60 Random Glucose 106 H Calcium 9.7 Phosphorus 4.3 Magnesium 2.5 H Total Bilirubin 0.5 AST 82 H D ALT 93 H D Alkaline Phosphatase 142 H D Total Protein 7.4 Albumin 4.1 Globulin 3.4 Albumin/Globulin Ratio 1.2 Urine 5-HIAA 24 Hour 2.8 Assessment & Plan - Assessment and Plan (Free Text) Assessment: schizophrenia rule out delirium due to medical condition acute change in mental status / on reviewing chart up till 01/27 pt has relatively stable mental status despite that pt has been intermittently taking clozaril intermittently after removing NG tube , due to half life of clozaril it is unlikely that the current acute change in mental status is related to decrease intake of clozaril Plan: it is noted that pt has elevated wbc/ 13.4, neut/77.6 please rule out infection as possible cause of current acute change in mental status recommend urine analysis recommend to check clozaril level recommend zyprexa zydis 10mg po tid / q8 if pt reuses po zyprexa 10 IM q8 maximum dose 30mg q24
--- NOTE | 2019-01-30 15:27 | CP.PCM.CON ---
<Mark Mast - Last Filed: 01/30/19 16:19> History of Present Illness - History of Present Illness History of Present Illness: 38F with PMH that includes cerebral palsy, ?seizures, anxiety presents to [facility] ED for complaint of abdominal pain, admitted to Unit for SBO, s/p ex-lap. Medic al team was consulted due to patient becoming agitated, confused, stripped naked, reciting the bible and removed all blood lines. Past Patient History - Past Medical History & Family History Past Medical History?: Yes - Past Social History Alcohol: None - CARDIAC Hx Pacemaker: No - PULMONARY Hx Respiratory Disorders: No - NEUROLOGICAL Hx Seizures: Yes - HEENT Hx HEENT Problems: No - RENAL Hx Chronic Kidney Disease: No - ENDOCRINE/METABOLIC Hx Endocrine Disorders: No - HEMATOLOGICAL/ONCOLOGICAL Hx Cancer: No - INTEGUMENTARY Hx Dermatological Problems: No - MUSCULOSKELETAL/RHEUMATOLOGICAL Hx Musculoskeletal Disorders: No Hx Falls: No - GASTROINTESTINAL Hx Gastrointestinal Disorders: No - GENITOURINARY/GYNECOLOGICAL Hx Genitourinary Disorders: No - PSYCHIATRIC Hx Substance Use: No - SURGICAL HISTORY Hx Mastectomy: No - ANESTHESIA Hx Anesthesia: Yes Hx Anesthesia Reactions: No Hx Malignant Hyperthermia: No Has any member of the family had a problem w/ anesthesia?: No Meds Allergies/Adverse Reactions: Allergies Allergy/AdvReac Type Severity Reaction Status Date / Time haloperidol [From Haldol] Allergy RASH Verified 01/14/19 19:41 latex Allergy RASH Verified 01/14/19 19:41 lithium Allergy RASH Verified 01/14/19 19:41 - Medications Medications: Current Medications Acetaminophen (Tylenol 650 Mg Supp) 650 mg [place] Q6 PRN PRN Reason: Pain, moderate (4-7) Benzocaine/Menthol (Cepacol Sore Throat) 1 rebecca PO Q3 PRN PRN Reason: Sore Throat Last Admin: 01/21/19 16:55 Dose: 1 rebecca Chlorpromazine (Thorazine) 50 mg PO Q6 [facility] Clozapine (Clozaril) 300 mg PO Q12H [facility] Last Admin: 01/30/19 10:52 Dose: Not Given Diphenhydramine HCl (Benadryl) 25 mg IM Q6 PRN PRN Reason: Allergy symptoms Docusate Sodium (Colace Liquid) 100 mg NG BID [facility] Last Admin: 03/29/19 10:52 Dose: Not Given Enoxaparin Sodium (Lovenox) 40 mg SC DAILY [facility]; Protocol Last Admin: 01/30/19 08:55 Dose: 40 mg Lidocaine (Lidoderm) 1 ea TD DAILY [facility] Last Admin: 01/30/19 08:59 Dose: 1 ea Lorazepam (Ativan) 1 mg IM Q6H PRN PRN Reason: Agitation Mirtazapine (Remeron) 30 mg PO HS [facility] Last Admin: 01/29/19 21:26 Dose: Not Given Pantoprazole Sodium (Protonix Inj) 40 mg IVP DAILY [facility] Last Admin: 01/30/19 10:52 Dose: Not Given Physical Exam - Constitutional Appears: Combative, Agitated, Confused Additional comments: Unable to perform PE due patient combative Results - Vital Signs Recent Vital Signs: Last Vital Signs Temp 98.1 F 01/30/19 03:20 Pulse 101 H 01/30/19 03:20 Resp 18 01/30/19 03:20 BP 107/74 01/30/19 03:20 Pulse Ox 97 01/30/19 03:20 - Labs Result Diagrams: 01/30/19 06:27 01/30/19 06:27 Labs: Laboratory Results - last 24 hr 01/30/19 01/30/19 06:27 06:27 WBC 13.4 H D RBC 4.32 Hgb 12.8 Hct 38.5 MCV 89.2 D MCH 29.7 MCHC 33.3 RDW 13.5 Plt Count 392 MPV 8.7 Neut % (Auto) 77.6 H Lymph % (Auto) 11.3 L [place] % (Auto) 7.7 Eos % (Auto) 2.9 Baso % (Auto) 0.5 Neut # (Auto) 10.4 H Lymph # (Auto) 1.5 [place] # (Auto) 1.0 H Eos # (Auto) 0.4 Baso # (Auto) 0.1 Sodium 141 Potassium 4.0 Chloride 104 Carbon Dioxide 26 Anion Gap 15 BUN 21 H Creatinine 0.4 L Est GFR ( Amer) > 60 Est GFR (Non-Af Amer) > 60 Random Glucose 106 H Calcium 9.7 Phosphorus 4.3 Magnesium 2.5 H Total Bilirubin 0.5 AST 82 H D ALT 93 H D Alkaline Phosphatase 142 H D Total Protein 7.4 Albumin 4.1 Globulin 3.4 Albumin/Globulin Ratio 1.2 Assessment & Plan - Assessment and Plan (Free Text) Assessment: 38F with PMH that includes cerebral palsy, ?seizures, anxiety presents to [facility] ED for complaint of abdominal pain, admitted to Unit for SBO, s/p ex-lap. Medical team was consulted due to patient becoming agitated, confused, stripped naked, and removed all blood lines. Plan Altered mental status Need to evaluate psych vs medical delirium WBC + for leukocytes Psych on case Follow up CBC, CMP Follow up UA/ UC Will give Ativan 1mg q6 prn agitation Start on thorazine 50mg q6 benadryl 25mg Follow up with psych Continue management as per surgery team. <Oly Brothers - Last Filed: 01/30/19 19:46> Meds - Medications Medications: Current Medications Acetaminophen (Tylenol 650 Mg Supp) 650 mg TN Q6 PRN PRN Reason: Pain, moderate (4-7) Benzocaine/Menthol (Cepacol Sore Throat) 1 rebecca PO Q3 PRN PRN Reason: Sore Throat Last Admin: 01/21/19 16:55 Dose: 1 rebecca Chlorpromazine (Thorazine) 50 mg IM Q6 PRN PRN Reason: agitation Last Admin: 01/30/19 16:02 Dose: 50 mg Clozapine (Clozaril) 300 mg PO Q12H [facility] Last Admin: 01/30/19 17:42 Dose: 300 mg Diphenhydramine HCl (Benadryl) 25 mg IM Q6 PRN PRN Reason: Allergy symptoms Last Admin: 01/30/19 16:01 Dose: 25 mg Docusate Sodium (Colace Liquid) 100 mg NG BID [facility] Last Admin: 01/30/19 17:51 Dose: Not Given Enoxaparin Sodium (Lovenox) 40 mg SC DAILY [facility]; Protocol Last Admin: 01/30/19 08:55 Dose: 40 mg Potassium Chloride/Dextrose/Sod Cl (Potassium Chl 20 Meq In D5-1/2ns) 1,000 mls @ 125 mls/hr IV .Q8H [facility] Stop: 01/31/19 17:42 Last Admin: 01/30/19 18:47 Dose: 125 mls/hr Lidocaine (Lidoderm) 1 ea TD DAILY [facility] Last Admin: 01/30/19 08:59 Dose: 1 ea Lorazepam (Ativan) 1 mg IM Q6H PRN PRN Reason: Agitation Last Admin: 01/30/19 16:00 Dose: 1 mg Mirtazapine (Remeron) 30 mg PO HS [facility] Last Admin: 01/29/19 21:26 Dose: Not Given Ondansetron HCl (Zofran Inj) 4 mg IVP Q4 PRN PRN Reason: Nausea/Vomiting Last Admin: 01/30/19 17:43 Dose: 4 mg Pantoprazole Sodium (Protonix Inj) 40 mg IVP DAILY [facility] Last Admin: 01/30/19 17:32 Dose: 40 mg Results - Vital Signs Recent Vital Signs: Last Vital Signs Temp 98.1 F 01/30/19 03:20 Pulse 101 H 01/30/19 03:20 Resp 18 01/30/19 03:20 BP 107/74 01/30/19 03:20 Pulse Ox 97 01/30/19 03:20 - Labs Result Diagrams: 01/30/19 15:51 01/30/19 15:51 Labs: Laboratory Results - last 24 hr 01/30/19 01/30/19 01/30/19 06:27 06:27 15:51 WBC 13.4 H D 12.1 H RBC 4.32 4.42 Hgb 12.8 13.4 Hct 38.5 39.1 MCV 89.2 D 88.5 MCH 29.7 30.3 MCHC 33.3 34.2 RDW 13.5 13.6 Plt Count 392 493 H D MPV 8.7 Neut % (Auto) 77.6 H Lymph % (Auto) 11.3 L [place] % (Auto) 7.7 Eos % (Auto) 2.9 Baso % (Auto) 0.5 Neut # (Auto) 10.4 H Lymph # (Auto) 1.5 [place] # (Auto) 1.0 H Eos # (Auto) 0.4 Baso # (Auto) 0.1 Sodium 141 Potassium 4.0 Chloride 104 Carbon Dioxide 26 Anion Gap 15 BUN 21 H Creatinine 0.4 L Est GFR ( Amer) > 60 Est GFR (Non-Af Amer) > 60 Random Glucose 106 H Calcium 9.7 Phosphorus 4.3 Magnesium 2.5 H Total Bilirubin 0.5 AST 82 H D ALT 93 H D Alkaline Phosphatase 142 H D Total Protein 7.4 Albumin 4.1 Globulin 3.4 Albumin/Globulin Ratio 1.2 01/30/19 15:51 WBC RBC Hgb Hct MCV MCH MCHC RDW Plt Count MPV Neut % (Auto) Lymph % (Auto) [place] % (Auto) Eos % (Auto) Baso % (Auto) Neut # (Auto) Lymph # (Auto) [place] # (Auto) Eos # (Auto) Baso # (Auto) Sodium 144 Potassium 4.2 Chloride 106 Carbon Dioxide 21 L Anion Gap 21 H BUN 20 H Creatinine 0.6 L Est GFR ( Amer) > 60 Est GFR (Non-Af Amer) > 60 Random Glucose 115 H Calcium 10.1 Phosphorus 3.7 Magnesium 2.3 Total Bilirubin AST ALT Alkaline Phosphatase Total Protein Albumin Globulin Albumin/Globulin Ratio Attending/Attestation - Attestation I have personally seen and examined this patient.: Yes I have fully participated in the care of the patient.: Yes I have reviewed all pertinent clinical information: Yes Notes (Text): 01/30/19 19:46 Agree with findings and plan as above.
[2019-01-30] MEDS ORDERED: Sodium Chloride 0.9% 1,000 ML IV SCH (15:45)
[2019-01-30] MEDS: DiphenhydrAMINE 50 mg/ml Inj IM PRN (16:01)
[2019-01-30 16:09] LABS: HEMOGLOBIN 13.4 g/dL (12.0-16.0); MEAN CELL VOLUME 88.5 fl (81.0-99.0); MEAN CORPUSCULAR HEMOGLOBIN 30.3 pg (27.0-31.0); MEAN CORPUSCULAR HGB CONC 34.2 g/dL (33.0-37.0); RBC 4.42 Mil/uL (3.80-5.20); RED CELL DISTRIBUTION WIDTH 13.6 % (11.5-14.5); WHITE BLOOD COUNT 12.1 K/uL (4.8-10.8)
[2019-01-30 16:41] LABS: BLOOD UREA NITROGEN 20 mg/dl (7-17); CALCIUM 10.1 mg/dL (8.4-10.2); GFR NON-AFRICAN AMERICAN > 60
[2019-01-30] MEDS: Potassium Ch 20mEq in D5-1/2NS 1,000 ML IV SCH (18:47)
--- NOTE | 2019-01-30 20:00 | CP.PCM.PN ---
<Milton Zamudio - Last Filed: 01/30/19 19:56> Subjective - Date & Time of Evaluation Date of Evaluation: 01/30/19 Time of Evaluation: 07:30 - Subjective Subjective: General Surgery Note for Dr. Tinoco Patient seen and examined at bedside. Overnight, patient developed psychosis and resistant hallucinations again. Yesterday she received IM Zyprexa which help stabilze her then she was able to take her clozapine. Unfortunately, later in the day patient reverted back to intense halucinations. Patient refusing oral medications again and not responding to anyone. She was lying in bed reciting prayers. IM Zyprexa was given again. Patient seem to fall asleep but then around 05:00 patient pulled her PICC line. Hallucination intensified again. This morning she was back to reciting prayers and not interacting with any indiv iduals. As per nursing, patient had a BM overnight. Objective - Vital Signs/Intake and Output Vital Signs (last 24 hours): Temp Pulse Resp BP Pulse Ox 98.1 F 101 H 18 107/74 97 01/30/19 13:00 01/30/19 13:00 01/30/19 13:00 01/30/19 13:00 01/30/19 13:00 - Medications Medications: Current Medications Acetaminophen (Tylenol 650 Mg Supp) 650 mg ND Q6 PRN PRN Reason: Pain, moderate (4-7) Benzocaine/Menthol (Cepacol Sore Throat) 1 rebecca PO Q3 PRN PRN Reason: Sore Throat Last Admin: 01/21/19 16:55 Dose: 1 rebecca Chlorpromazine (Thorazine) 50 mg IM Q6 PRN PRN Reason: agitation Last Admin: 01/30/19 16:02 Dose: 50 mg Clozapine (Clozaril) 300 mg PO Q12H [facility] Last Admin: 01/30/19 17:42 Dose: 300 mg Diphenhydramine HCl (Benadryl) 25 mg IM Q6 PRN PRN Reason: Allergy symptoms Last Admin: 01/30/19 16:01 Dose: 25 mg Docusate Sodium (Colace Liquid) 100 mg NG BID [facility] Last Admin: 01/30/19 17:51 Dose: Not Given Enoxaparin Sodium (Lovenox) 40 mg SC DAILY [facility]; Protocol Last Admin: 01/30/19 08:55 Dose: 40 mg Potassium Chloride/Dextrose/Sod Cl (Potassium Chl 20 Meq In D5-1/2ns) 1,000 mls @ 125 mls/hr IV .Q8H [facility] Stop: 01/31/19 17:42 Last Admin: 01/30/19 18:47 Dose: 125 mls/hr Lidocaine (Lidoderm) 1 ea TD DAILY [facility] Last Admin: 01/30/19 08:59 Dose: 1 ea Lorazepam (Ativan) 1 mg IM Q6H PRN PRN Reason: Agitation Last Admin: 01/30/19 16:00 Dose: 1 mg Mirtazapine (Remeron) 30 mg PO HS [facility] Last Admin: 01/29/19 21:26 Dose: Not Given Ondansetron HCl (Zofran Inj) 4 mg IVP Q4 PRN PRN Reason: Nausea/Vomiting Last Admin: 01/30/19 17:43 Dose: 4 mg Pantoprazole Sodium (Protonix Inj) 40 mg IVP DAILY [facility] Last Admin: 01/30/19 17:32 Dose: 40 mg - Labs Labs: 01/30/19 15:51 01/30/19 15:51 PT 21.4 Seconds (9.8-13.1) H 01/23/19 05:45 INR 1.9 01/23/19 05:45 APTT 27.7 Seconds (25.6-37.1) 01/15/19 05:20 - Additional Findings Additional findings: -Constitutional Appears: Other (hallucinating and in state of psychosis) - Head Exam Head Exam: ATRAUMATIC, NORMOCEPHALIC - Eye Exam Eye Exam: EOMI, Normal appearance Pupil Exam: PERRL - ENT Exam ENT Exam: Mucous Membranes Moist - Respiratory Exam Respiratory Exam: Clear to Ausculation Bilateral - Cardiovascular Exam Cardiovascular Exam: REGULAR RHYTHM - GI/Abdominal Exam GI & Abdominal Exam: Soft, Normal Bowel Sounds. absent: Distended, Guarding, Rigid, Tenderness, Hernia, Rebound - Extremities Exam Extremities Exam: Normal Capillary Refill - Back Exam Back Exam: absent: CVA tenderness (L), CVA tenderness (R) - Neurological Exam Neurological Exam: Altered - Psychiatric Exam Psychiatric exam: Flat Affect - Skin Skin Exam: Dry, Intact, Warm Assessment and Plan - Assessment and Plan (Free Text) Assessment: 38 F who presented with SBO s/p exlap, s/p push enteroscopy and diagnostic lap converted open with SBR/anastomosis Plan: Plan: -NPO until psychosis resolves -Zyprexa IM Q12H -Clozapine if cooperative -discussed with Dr. Gunter PGY2 <Franklyn Valencia - Last Filed: 01/31/19 09:40> Objective - Vital Signs/Intake and Output Vital Signs (last 24 hours): Temp Pulse Resp BP Pulse Ox 97.7 F 100 H 18 107/70 96 01/31/19 05:00 01/31/19 05:00 01/31/19 05:00 01/31/19 05:00 01/31/19 05:00 - Medications Medications: Current Medications Acetaminophen (Tylenol 650 Mg Supp) 650 mg ND Q6 PRN PRN Reason: Pain, moderate (4-7) Benzocaine/Menthol (Cepacol Sore Throat) 1 rebecca PO Q3 PRN PRN Reason: Sore Throat Last Admin: 01/21/19 16:55 Dose: 1 rebecca Chlorpromazine (Thorazine) 50 mg IM Q6 PRN PRN Reason: agitation Last Admin: 01/31/19 01:16 Dose: 50 mg Clozapine (Clozaril) 300 mg PO Q12H [facility] Last Admin: 01/31/19 01:23 Dose: Not Given Diphenhydramine HCl (Benadryl) 25 mg IM Q6 PRN PRN Reason: Allergy symptoms Last Admin: 01/31/19 01:17 Dose: 25 mg Docusate Sodium (Colace Liquid) 100 mg NG BID [facility] Last Admin: 01/31/19 09:23 Dose: Not Given Enoxaparin Sodium (Lovenox) 40 mg SC DAILY [facility]; Protocol Last Admin: 01/31/19 08:28 Dose: 40 mg Potassium Chloride/Dextrose/Sod Cl (Potassium Chl 20 Meq In D5-1/2ns) 1,000 mls @ 125 mls/hr IV .Q8H [facility] Stop: 01/31/19 17:42 Last Admin: 01/31/19 09:18 Dose: 125 mls/hr Lidocaine (Lidoderm) 1 ea TD DAILY [facility] Last Admin: 01/31/19 09:18 Dose: Not Given Lorazepam (Ativan) 1 mg IM Q6H PRN PRN Reason: Agitation Last Admin: 01/31/19 01:17 Dose: 1 mg Mirtazapine (Remeron) 30 mg PO HS [facility] Last Admin: 01/30/19 22:14 Dose: Not Given Ondansetron HCl (Zofran Inj) 4 mg IVP Q4 PRN PRN Reason: Nausea/Vomiting Last Admin: 01/30/19 17:43 Dose: 4 mg Pantoprazole Sodium (Protonix Inj) 40 mg IVP DAILY [facility] Last Admin: 01/31/19 09:17 Dose: 40 mg - Labs Labs: 01/30/19 15:51 01/30/19 15:51 PT 21.4 Seconds (9.8-13.1) H 01/23/19 05:45 INR 1.9 01/23/19 05:45 APTT 27.7 Seconds (25.6-37.1) 01/15/19 05:20 Assessment and Plan - Assessment and Plan (Free Text) Plan: All medical record entries made by the resident were at my direction. I have reviewed the chart and agree that the record accurately reflects my personal performance of the history, physical exam, and medical decision making for this patient. Wound clean, having bowel movements. Psych meds need adjustment
[2019-01-31] MEDS: DiphenhydrAMINE 50 mg/ml Inj IM PRN ×2 (01:17→09:59)
[2019-01-31] MEDS: Potassium Ch 20mEq in D5-1/2NS 1,000 ML IV SCH ×5 (01:53→21:02)
--- NOTE | 2019-01-31 07:09 | CP.PCM.PN ---
Subjective - Date & Time of Evaluation Date of Evaluation: 01/31/19 Time of Evaluation: 10:20 - Subjective Subjective: Patient seen and examined this morning at bedside. Patient remains on 1:1. Patient laying in bed, muttering to herself. Remains combative and unwilling to have physical exam. Objective - Vital Signs/Intake and Output Vital Signs (last 24 hours): Temp Pulse Resp BP Pulse Ox 97.7 F 100 H 18 107/70 96 01/31/19 05:00 01/31/19 05:00 01/31/19 05:00 01/31/19 05:00 01/31/19 05:00 - Medications Medications: Current Medications Acetaminophen (Tylenol 650 Mg Supp) 650 mg [place] Q6 PRN PRN Reason: Pain, moderate (4-7) Benzocaine/Menthol (Cepacol Sore Throat) 1 rebecca PO Q3 PRN PRN Reason: Sore Throat Last Admin: 01/21/19 16:55 Dose: 1 rebecca Chlorpromazine (Thorazine) 50 mg IM Q6 PRN PRN Reason: agitation Last Admin: 01/31/19 01:16 Dose: 50 mg Clozapine (Clozaril) 300 mg PO Q12H [facility] Last Admin: 01/31/19 01:23 Dose: Not Given Diphenhydramine HCl (Benadryl) 25 mg IM Q6 PRN PRN Reason: Allergy symptoms Last Admin: 01/31/19 01:17 Dose: 25 mg Docusate Sodium (Colace Liquid) 100 mg NG BID [facility] Last Admin: 01/30/19 17:51 Dose: Not Given Enoxaparin Sodium (Lovenox) 40 mg SC DAILY [facility]; Protocol Last Admin: 01/30/19 08:55 Dose: 40 mg Potassium Chloride/Dextrose/Sod Cl (Potassium Chl 20 Meq In D5-1/2ns) 1,000 mls @ 125 mls/hr IV .Q8H [facility] Stop: 01/31/19 17:42 Last Admin: 01/31/19 01:53 Dose: 125 mls/hr Lidocaine (Lidoderm) 1 ea TD DAILY [facility] Last Admin: 01/30/19 08:59 Dose: 1 ea Lorazepam (Ativan) 1 mg IM Q6H PRN PRN Reason: Agitation Last Admin: 01/31/19 01:17 Dose: 1 mg Mirtazapine (Remeron) 30 mg PO HS [facility] Last Admin: 01/30/19 22:14 Dose: Not Given Ondansetron HCl (Zofran Inj) 4 mg IVP Q4 PRN PRN Reason: Nausea/Vomiting Last Admin: 01/30/19 17:43 Dose: 4 mg Pantoprazole Sodium (Protonix Inj) 40 mg IVP DAILY [facility] Last Admin: 01/30/19 17:32 Dose: 40 mg - Labs Labs: 01/30/19 15:51 01/30/19 15:51 PT 21.4 Seconds (9.8-13.1) H 01/23/19 05:45 INR 1.9 01/23/19 05:45 APTT 27.7 Seconds (25.6-37.1) 01/15/19 05:20 - Constitutional Appears: Non-toxic, No Acute Distress, Combative (exam limited due to ), Confused - Head Exam Head Exam: ATRAUMATIC, NORMAL INSPECTION, NORMOCEPHALIC - Psychiatric Exam Psychiatric exam: Agitated, Anxious Assessment and Plan - Assessment and Plan (Free Text) Assessment: 38 y/o woman w/ PMH of cerebral palsy, unknown history of seizures, anxiety admitted for SBO, s/p laparoscopic assisted push endoscopy, adhesion lysis, small bowel resection w/ prmary side to side anastamoses, incidental appendectomy. Medical team was consulted due to patient becoming agitated, confused, stripped naked, and removed all blood lines. Plan: Psychosis - delirium vs. medication withdrawal - psych consult, Dr. Mohan, recommendations appreciated - c/w thorazine 50 mg IM Q6 - c/w benadryl 25 mg IM Q6h - c/w ativan 1 mg IM Q6h - monitor for acute changes
[2019-01-31] MEDS: Enoxaparin 40 mg Syringe SC SCH (08:28)
[2019-01-31] MEDS: Lidocaine 5% Patch TD SCH (09:18)
--- NOTE | 2019-01-31 13:09 | CP.PCM.CON ---
History of Present Illness - History of Present Illness History of Present Illness: follow up consult pt seen in bed continues to be internally preoccupied, constantly talking to self , no eye contact as per staff pt after having thorazine injection shows partial response , was able to give a dose of clozaril last evening with juice Past Patient History - Past Medical History & Family History Past Medical History?: Yes - Past Social History Alcohol: None - CARDIAC Hx Pacemaker: No - PULMONARY Hx Respiratory Disorders: No - NEUROLOGICAL Hx Seizures: Yes - HEENT Hx HEENT Problems: No - RENAL Hx Chronic Kidney Disease: No - ENDOCRINE/METABOLIC Hx Endocrine Disorders: No - HEMATOLOGICAL/ONCOLOGICAL Hx Cancer: No - INTEGUMENTARY Hx Dermatological Problems: No - MUSCULOSKELETAL/RHEUMATOLOGICAL Hx Musculoskeletal Disorders: No Hx Falls: No - GASTROINTESTINAL Hx Gastrointestinal Disorders: No - GENITOURINARY/GYNECOLOGICAL Hx Genitourinary Disorders: No - PSYCHIATRIC Hx Substance Use: No - SURGICAL HISTORY Hx Mastectomy: No - ANESTHESIA Hx Anesthesia: Yes Hx Anesthesia Reactions: No Hx Malignant Hyperthermia: No Has any member of the family had a problem w/ anesthesia?: No Meds Allergies/Adverse Reactions: Allergies Allergy/AdvReac Type Severity Reaction Status Date / Time haloperidol [From Haldol] Allergy RASH Verified 01/14/19 19:41 latex Allergy RASH Verified 01/14/19 19:41 lithium Allergy RASH Verified 01/14/19 19:41 - Medications Medications: Current Medications Acetaminophen (Tylenol 650 Mg Supp) 650 mg [place] Q6 PRN PRN Reason: Pain, moderate (4-7) Benzocaine/Menthol (Cepacol Sore Throat) 1 rebecca PO Q3 PRN PRN Reason: Sore Throat Last Admin: 01/21/19 16:55 Dose: 1 rebecca Chlorpromazine (Thorazine) 50 mg IM Q6 PRN PRN Reason: agitation Last Admin: 01/31/19 09:59 Dose: 50 mg Clozapine (Clozaril) 300 mg PO Q12H [facility] Last Admin: 01/31/19 10:07 Dose: Not Given Diphenhydramine HCl (Benadryl) 25 mg IM Q6 PRN PRN Reason: Allergy symptoms Last Admin: 01/31/19 09:59 Dose: 25 mg Docusate Sodium (Colace Liquid) 100 mg NG BID [facility] Last Admin: 01/31/19 09:23 Dose: Not Given Enoxaparin Sodium (Lovenox) 40 mg SC DAILY [facility]; Protocol Last Admin: 01/31/19 08:28 Dose: 40 mg Potassium Chloride/Dextrose/Sod Cl (Potassium Chl 20 Meq In D5-1/2ns) 1,000 mls @ 125 mls/hr IV .Q8H [facility] Stop: 01/31/19 17:42 Last Admin: 01/31/19 09:18 Dose: 125 mls/hr Lidocaine (Lidoderm) 1 ea TD DAILY [facility] Last Admin: 01/31/19 09:18 Dose: Not Given Lorazepam (Ativan) 1 mg IM Q6H PRN PRN Reason: Agitation Last Admin: 01/31/19 09:59 Dose: 1 mg Mirtazapine (Remeron) 30 mg PO HS [facility] Last Admin: 01/30/19 22:14 Dose: Not Given Ondansetron HCl (Zofran Inj) 4 mg IVP Q4 PRN PRN Reason: Nausea/Vomiting Last Admin: 01/30/19 17:43 Dose: 4 mg Pantoprazole Sodium (Protonix Inj) 40 mg IVP DAILY [facility] Last Admin: 01/31/19 09:17 Dose: 40 mg Results - Vital Signs Recent Vital Signs: Last Vital Signs Temp 97.7 F 01/31/19 05:00 Pulse 100 H 01/31/19 05:00 Resp 18 01/31/19 05:00 BP 107/70 01/31/19 05:00 Pulse Ox 96 01/31/19 05:00 - Labs Result Diagrams: 01/30/19 15:51 01/30/19 15:51 Labs: Laboratory Results - last 24 hr 01/30/19 01/30/19 15:51 15:51 WBC 12.1 H RBC 4.42 Hgb 13.4 Hct 39.1 MCV 88.5 MCH 30.3 MCHC 34.2 RDW 13.6 Plt Count 493 H D Sodium 144 Potassium 4.2 Chloride 106 Carbon Dioxide 21 L Anion Gap 21 H BUN 20 H Creatinine 0.6 L Est GFR ( Amer) > 60 Est GFR (Non-Af Amer) > 60 Random Glucose 115 H Calcium 10.1 Phosphorus 3.7 Magnesium 2.3 Assessment & Plan - Assessment and Plan (Free Text) Assessment: schizophrenia / acute psychosis rule out delirium due to acute decrease in dose of clozaril resulting in central cholinergic rebound delirium due to medical condition/ observed elevated WBC, FOLLOW UP ON BANDS AND URINE ANALYSIS FOR POSSIBLE INFECTION Plan: CONTINUE WITH THORAZINE 50MG PO Q4, IF REFUSES GIVE IM WITH BENADRYL 25MG PO Q4 IF REFUSES GIVE IM PLEASE MONITOR BLOOD PRESSURE BEFORE MEDICATIONS AND HOLD IF BP IS LESS THAN 90/60 THE ANTICHOLINERGIC EFFECT OF THORAZINE WOULD HELP TO RELIEVE POSSIBLE LANA EFFECTS OF ACUTE REDUCTION IN DOSE OF CLOZARIL PLEASE STOP ATIVAN IT MAY RESULT IN MORE CONFUSION
--- NOTE | 2019-01-31 14:54 | CP.PCM.PN ---
<Aydin Franco - Last Filed: 01/31/19 14:50> Subjective - Date & Time of Evaluation Date of Evaluation: 01/31/19 Time of Evaluation: 10:00 - Subjective Subjective: General Surgery Progress Note for Dr. Valencia This 38F was seen and excamined this AM at bedside however she was altered at the time and unable to provide subjective. Per Nursing no acute events overnight. Objective - Vital Signs/Intake and Output Vital Signs (last 24 hours): Temp Pulse Resp BP Pulse Ox 97.7 F 100 H 18 107/70 96 01/31/19 05:00 01/31/19 05:00 01/31/19 05:00 01/31/19 05:00 01/31/19 05:00 - Medications Medications: Current Medications Acetaminophen (Tylenol 650 Mg Supp) 650 mg [place] Q6 PRN PRN Reason: Pain, moderate (4-7) Benzocaine/Menthol (Cepacol Sore Throat) 1 rebecca PO Q3 PRN PRN Reason: Sore Throat Last Admin: 01/21/19 16:55 Dose: 1 rebecca Chlorpromazine (Thorazine) 50 mg IM Q4 [facility] Clozapine (Clozaril) 300 mg PO Q12H [facility] Last Admin: 01/31/19 10:07 Dose: Not Given Diphenhydramine HCl (Benadryl) 25 mg IM Q4 [facility] Docusate Sodium (Colace Liquid) 100 mg NG BID [facility] Last Admin: 01/31/19 09:23 Dose: Not Given Enoxaparin Sodium (Lovenox) 40 mg SC DAILY [facility]; Protocol Last Admin: 01/31/19 08:28 Dose: 40 mg Potassium Chloride/Dextrose/Sod Cl (Potassium Chl 20 Meq In D5-1/2ns) 1,000 mls @ 125 mls/hr IV .Q8H [facility] Stop: 01/31/19 17:42 Last Admin: 01/31/19 09:18 Dose: 125 mls/hr Lidocaine (Lidoderm) 1 ea TD DAILY [facility] Last Admin: 01/31/19 09:18 Dose: Not Given Mirtazapine (Remeron) 30 mg PO HS [facility] Last Admin: 01/30/19 22:14 Dose: Not Given Ondansetron HCl (Zofran Inj) 4 mg IVP Q4 PRN PRN Reason: Nausea/Vomiting Last Admin: 01/30/19 17:43 Dose: 4 mg Pantoprazole Sodium (Protonix Inj) 40 mg IVP DAILY [facility] Last Admin: 01/31/19 09:17 Dose: 40 mg - Labs Labs: 01/30/19 15:51 01/30/19 15:51 PT 21.4 Seconds (9.8-13.1) H 01/23/19 05:45 INR 1.9 01/23/19 05:45 APTT 27.7 Seconds (25.6-37.1) 01/15/19 05:20 - Constitutional Appears: Non-toxic, No Acute Distress - Head Exam Head Exam: ATRAUMATIC, NORMOCEPHALIC - Eye Exam Eye Exam: EOMI - ENT Exam ENT Exam: Mucous Membranes Moist - Respiratory Exam Respiratory Exam: NORMAL BREATHING PATTERN - Cardiovascular Exam Cardiovascular Exam: +S1, +S2 - GI/Abdominal Exam GI & Abdominal Exam: Soft. absent: Distended, Firm, Guarding, Rigid, Tenderness - Neurological Exam Neurological Exam: Altered - Skin Skin Exam: Dry, Intact Assessment and Plan - Assessment and Plan (Free Text) Assessment: 38 F who presented with SBO s/p exlap, s/p push enteroscopy and diagnostic lap converted open with SBR/anastomosis Regular diet if amenable -Zyprexa IM Q12H -Clozapine if cooperative -Further recs per Dr. Erik Franco PGY3 <Franklyn Valencia - Last Filed: 02/01/19 14:20> Subjective - Subjective Subjective: All medical record entries made by the resident were at my direction and personally directed by me. I have reviewed the chart and agree that the record accurately reflects my personal performance of the history, physical exam, medical decision making, Objective - Vital Signs/Intake and Output Vital Signs (last 24 hours): Temp Pulse Resp BP Pulse Ox 97.8 F 98 H 18 96/65 L 95 02/01/19 06:35 02/01/19 06:35 02/01/19 06:35 02/01/19 06:35 02/01/19 06:35 Intake and Output: 02/01/19 02/01/19 06:59 18:59 Intake Total 240 Balance 240 - Medications Medications: Current Medications Acetaminophen (Tylenol 650 Mg Supp) 650 mg [place] Q6 PRN PRN Reason: Pain, moderate (4-7) Benzocaine/Menthol (Cepacol Sore Throat) 1 rebecca PO Q3 PRN PRN Reason: Sore Throat Last Admin: 01/21/19 16:55 Dose: 1 rebecca Chlorpromazine (Thorazine) 50 mg IM Q4 PRN PRN Reason: Agitation Clozapine (Clozaril) 300 mg PO Q12H [facility] Last Admin: 02/01/19 09:35 Dose: Not Given Diphenhydramine HCl (Benadryl) 25 mg IM Q4 PRN PRN Reason: Allergy symptoms Docusate Sodium (Colace Liquid) 100 mg NG BID [facility] Last Admin: 02/01/19 09:35 Dose: Not Given Potassium Chloride/Dextrose/Sod Cl (Potassium Chl 20 Meq In D5-1/2ns) 1,000 mls @ 125 mls/hr IV .Q8H [facility] Stop: 02/01/19 17:55 Last Admin: 02/01/19 11:48 Dose: 125 mls/hr Lidocaine (Lidoderm) 1 ea TD DAILY [facility] Last Admin: 02/01/19 09:35 Dose: Not Given Mirtazapine (Remeron) 30 mg PO HS [facility] Last Admin: 02/01/19 00:19 Dose: Not Given Ondansetron HCl (Zofran Inj) 4 mg IVP Q4 PRN PRN Reason: Nausea/Vomiting Last Admin: 01/30/19 17:43 Dose: 4 mg Pantoprazole Sodium (Protonix Inj) 40 mg IVP DAILY [facility] Last Admin: 02/01/19 09:47 Dose: 40 mg - Labs Labs: 01/30/19 15:51 01/30/19 15:51 PT 21.4 Seconds (9.8-13.1) H 01/23/19 05:45 INR 1.9 01/23/19 05:45 APTT 27.7 Seconds (25.6-37.1) 01/15/19 05:20 Assessment and Plan - Assessment and Plan (Free Text) Assessment: All medical record entries made by the resident were at my direction and personally directed by me. I have reviewed the chart and agree that the record accurately reflects my personal performance of the history, physical exam, medical decision making,
[2019-01-31] MEDS ORDERED: DiphenhydrAMINE 50 mg/ml Inj IM SCH (17:00)
[2019-01-31 17:28] LABS: SQUAMOUS EPITHIAL 5 /hpf (0-5); URINE BACTERIA OCC (<OCC); URINE BILIRUBIN NEGATIVE (NEGATIVE); URINE BLOOD NEGATIVE (NEGATIVE); URINE CLARITY CLOUDY (Clear); URINE COLOR AMBER (YELLOW); URINE GLUCOSE (UA) NEG (NEGATIVE); URINE LEUKOCYTE ESTERASE NEG Leu/uL (Negative); URINE PROTEIN 30 mg/dL (NEGATIVE); URINE UROBILINOGEN 0.2-1.0 mg/dL (0.2-1.0)
[2019-02-01] MEDS: Potassium Ch 20mEq in D5-1/2NS 1,000 ML IV SCH ×2 (02:00→11:48)
--- NOTE | 2019-02-01 07:07 | CP.PCM.PN ---
Objective - Vital Signs/Intake and Output Vital Signs (last 24 hours): Temp Pulse Resp BP Pulse Ox 97.8 F 98 H 18 96/65 L 95 02/01/19 06:35 02/01/19 06:35 02/01/19 06:35 02/01/19 06:35 02/01/19 06:35 Intake and Output: 02/01/19 02/01/19 06:59 18:59 Intake Total 240 Balance 240 - Medications Medications: Current Medications Acetaminophen (Tylenol 650 Mg Supp) 650 mg [place] Q6 PRN PRN Reason: Pain, moderate (4-7) Benzocaine/Menthol (Cepacol Sore Throat) 1 rebecca PO Q3 PRN PRN Reason: Sore Throat Last Admin: 01/21/19 16:55 Dose: 1 rebecca Chlorpromazine (Thorazine) 50 mg IM Q4 PRN PRN Reason: Agitation Clozapine (Clozaril) 300 mg PO Q12H [facility] Last Admin: 02/01/19 00:18 Dose: Not Given Diphenhydramine HCl (Benadryl) 25 mg IM Q4 PRN PRN Reason: Allergy symptoms Docusate Sodium (Colace Liquid) 100 mg NG BID [facility] Last Admin: 01/31/19 17:44 Dose: Not Given Potassium Chloride/Dextrose/Sod Cl (Potassium Chl 20 Meq In D5-1/2ns) 1,000 mls @ 125 mls/hr IV .Q8H [facility] Stop: 02/01/19 17:55 Last Admin: 02/01/19 02:00 Dose: Not Given Lidocaine (Lidoderm) 1 ea TD DAILY [facility] Last Admin: 01/31/19 09:18 Dose: Not Given Mirtazapine (Remeron) 30 mg PO HS [facility] Last Admin: 02/01/19 00:19 Dose: Not Given Ondansetron HCl (Zofran Inj) 4 mg IVP Q4 PRN PRN Reason: Nausea/Vomiting Last Admin: 01/30/19 17:43 Dose: 4 mg Pantoprazole Sodium (Protonix Inj) 40 mg IVP DAILY [facility] Last Admin: 01/31/19 09:17 Dose: 40 mg - Labs Labs: 01/30/19 15:51 01/30/19 15:51 PT 21.4 Seconds (9.8-13.1) H 01/23/19 05:45 INR 1.9 01/23/19 05:45 APTT 27.7 Seconds (25.6-37.1) 01/15/19 05:20
[2019-02-01] MEDS: Lidocaine 5% Patch TD SCH (09:35)
--- NOTE | 2019-02-01 09:48 | CP.PCM.PN ---
<Aydin Franco - Last Filed: 02/01/19 09:46> Subjective - Date & Time of Evaluation Date of Evaluation: 02/01/19 Time of Evaluation: 09:47 - Subjective Subjective: General Surgery Progress Note for Dr. Valencia This 38F was seen and examined this AM at bedside. No acute events reported overnight. Patient reports he is passing flatus. Denies chest painn or SOB. complains of lethargy. We discussed the importance of advancing her diet in her overall clinical progression. Objective - Vital Signs/Intake and Output Vital Signs (last 24 hours): Temp Pulse Resp BP Pulse Ox 97.8 F 98 H 18 96/65 L 95 02/01/19 06:35 02/01/19 06:35 02/01/19 06:35 02/01/19 06:35 02/01/19 06:35 Intake and Output: 02/01/19 02/01/19 06:59 18:59 Intake Total 240 Balance 240 - Medications Medications: Current Medications Acetaminophen (Tylenol 650 Mg Supp) 650 mg [place] Q6 PRN PRN Reason: Pain, moderate (4-7) Benzocaine/Menthol (Cepacol Sore Throat) 1 rebecca PO Q3 PRN PRN Reason: Sore Throat Last Admin: 01/21/19 16:55 Dose: 1 rebecca Chlorpromazine (Thorazine) 50 mg IM Q4 PRN PRN Reason: Agitation Clozapine (Clozaril) 300 mg PO Q12H [facility] Last Admin: 02/01/19 00:18 Dose: Not Given Diphenhydramine HCl (Benadryl) 25 mg IM Q4 PRN PRN Reason: Allergy symptoms Docusate Sodium (Colace Liquid) 100 mg NG BID [facility] Last Admin: 01/31/19 17:44 Dose: Not Given Potassium Chloride/Dextrose/Sod Cl (Potassium Chl 20 Meq In D5-1/2ns) 1,000 mls @ 125 mls/hr IV .Q8H [facility] Stop: 02/01/19 17:55 Last Admin: 02/01/19 02:00 Dose: Not Given Lidocaine (Lidoderm) 1 ea TD DAILY [facility] Last Admin: 01/31/19 09:18 Dose: Not Given Mirtazapine (Remeron) 30 mg PO HS [facility] Last Admin: 02/01/19 00:19 Dose: Not Given Ondansetron HCl (Zofran Inj) 4 mg IVP Q4 PRN PRN Reason: Nausea/Vomiting Last Admin: 01/30/19 17:43 Dose: 4 mg Pantoprazole Sodium (Protonix Inj) 40 mg IVP DAILY [facility] Last Admin: 01/31/19 09:17 Dose: 40 mg - Labs Labs: 01/30/19 15:51 01/30/19 15:51 PT 21.4 Seconds (9.8-13.1) H 01/23/19 05:45 INR 1.9 01/23/19 05:45 APTT 27.7 Seconds (25.6-37.1) 01/15/19 05:20 - Constitutional Appears: Non-toxic, No Acute Distress - Head Exam Head Exam: ATRAUMATIC, NORMOCEPHALIC - Eye Exam Eye Exam: EOMI - ENT Exam ENT Exam: Mucous Membranes Moist - Respiratory Exam Respiratory Exam: NORMAL BREATHING PATTERN - Cardiovascular Exam Cardiovascular Exam: +S1, +S2 - GI/Abdominal Exam GI & Abdominal Exam: Soft. absent: Distended, Firm, Guarding, Rigid, Tenderness - Neurological Exam Neurological Exam: Altered - Skin Skin Exam: Dry, Intact Assessment and Plan - Assessment and Plan (Free Text) Assessment: 38 F who presented with SBO s/p exlap, s/p push enteroscopy and diagnostic lap converted open with SBR/anastomosis - Regular diet if amenable -Zyprexa IM Q12H -Clozapine if cooperative -Further recs per Dr. Erik Franco PGY3 <Franklyn Valencia - Last Filed: 02/01/19 14:16> Objective - Vital Signs/Intake and Output Vital Signs (last 24 hours): Temp Pulse Resp BP Pulse Ox 97.8 F 98 H 18 96/65 L 95 02/01/19 06:35 02/01/19 06:35 02/01/19 06:35 02/01/19 06:35 02/01/19 06:35 Intake and Output: 02/01/19 02/01/19 06:59 18:59 Intake Total 240 Balance 240 - Medications Medications: Current Medications Acetaminophen (Tylenol 650 Mg Supp) 650 mg [place] Q6 PRN PRN Reason: Pain, moderate (4-7) Benzocaine/Menthol (Cepacol Sore Throat) 1 rebecca PO Q3 PRN PRN Reason: Sore Throat Last Admin: 01/21/19 16:55 Dose: 1 rebecca Chlorpromazine (Thorazine) 50 mg IM Q4 PRN PRN Reason: Agitation Clozapine (Clozaril) 300 mg PO Q12H [facility] Last Admin: 02/01/19 09:35 Dose: Not Given Diphenhydramine HCl (Benadryl) 25 mg IM Q4 PRN PRN Reason: Allergy symptoms Docusate Sodium (Colace Liquid) 100 mg NG BID [facility] Last Admin: 02/01/19 09:35 Dose: Not Given Potassium Chloride/Dextrose/Sod Cl (Potassium Chl 20 Meq In D5-1/2ns) 1,000 mls @ 125 mls/hr IV .Q8H [facility] Stop: 02/01/19 17:55 Last Admin: 02/01/19 11:48 Dose: 125 mls/hr Lidocaine (Lidoderm) 1 ea TD DAILY [facility] Last Admin: 02/01/19 09:35 Dose: Not Given Mirtazapine (Remeron) 30 mg PO HS [facility] Last Admin: 02/01/19 00:19 Dose: Not Given Ondansetron HCl (Zofran Inj) 4 mg IVP Q4 PRN PRN Reason: Nausea/Vomiting Last Admin: 01/30/19 17:43 Dose: 4 mg Pantoprazole Sodium (Protonix Inj) 40 mg IVP DAILY [facility] Last Admin: 02/01/19 09:47 Dose: 40 mg - Labs Labs: 01/30/19 15:51 01/30/19 15:51 PT 21.4 Seconds (9.8-13.1) H 01/23/19 05:45 INR 1.9 01/23/19 05:45 APTT 27.7 Seconds (25.6-37.1) 01/15/19 05:20 Assessment and Plan - Assessment and Plan (Free Text) Assessment: All medical record entries made by the resident were at my direction and personally directed by me. I have reviewed the chart and agree that the record accurately reflects my personal performance of the history, physical exam, medical decision making,
[2019-02-01] MEDS: DiphenhydrAMINE 50 mg/ml Inj IM PRN (17:35)
--- NOTE | 2019-02-01 21:48 | CP.PCM.PCO ---
Addendum Addendum: 02/01/19 21:33 The telegraphic typewriter installer was called to discuss medical progress with mother of this patient, 38 y/o F with a PMHx of schizophrenia and cerebral palsy being treated for SBO, S/P laparosocopy. Mother was informed that pt has been refusing PO meds and pt has been tearing apart IV lines; hence, need of IM pharmacotherapy. Mother reports same similar situation occurred a few years ago; pt had to be physically restrained in order to take IV and PO medications. Mother requesting physical restraints if necessary to stabilize pt. Mother was counseled on the benefits and risks of restraining, mother still requesting restratints for PO med intake. Will further discuss with psychiatry team.
[2019-02-02] MEDS: DiphenhydrAMINE 50 mg/ml Inj IM PRN (00:11)
--- NOTE | 2019-02-02 08:00 | CP.PCM.PN ---
<Katya Byrne - Last Filed: 02/02/19 13:01> Subjective - Date & Time of Evaluation Date of Evaluation: 02/02/19 Time of Evaluation: 08:00 - Subjective Subjective: General surgery progress note: Dr. Valencia 38F patient seen and examined at bedside. Patient awake yet altered at time of visit. Patient accompanied by her mother at bedside who states that she has been awake all night, refusing PO meds, and not amenable to diet at this time. Objective - Vital Signs/Intake and Output Vital Signs (last 24 hours): Temp Pulse Resp BP Pulse Ox 99.1 F 98 H 18 110/70 95 02/01/19 17:00 02/02/19 00:12 02/02/19 00:25 02/02/19 00:25 02/01/19 06:35 - Medications Medications: Current Medications Acetaminophen (Tylenol 650 Mg Supp) 650 mg [place] Q6 PRN PRN Reason: Pain, moderate (4-7) Benzocaine/Menthol (Cepacol Sore Throat) 1 rebecca PO Q3 PRN PRN Reason: Sore Throat Last Admin: 01/21/19 16:55 Dose: 1 rebecca Chlorpromazine (Thorazine) 50 mg IM Q4 PRN PRN Reason: Agitation Last Admin: 02/02/19 00:11 Dose: 50 mg Clozapine (Clozaril) 300 mg PO Q12H [facility] Last Admin: 02/01/19 22:12 Dose: Not Given Diphenhydramine HCl (Benadryl) 25 mg IM Q4 PRN PRN Reason: Allergy symptoms Last Admin: 02/02/19 00:11 Dose: 25 mg Docusate Sodium (Colace Liquid) 100 mg NG BID [facility] Last Admin: 02/01/19 16:42 Dose: Not Given Lidocaine (Lidoderm) 1 ea TD DAILY [facility] Last Admin: 02/01/19 09:35 Dose: Not Given Mirtazapine (Remeron) 30 mg PO HS [facility] Last Admin: 02/01/19 22:12 Dose: Not Given Ondansetron HCl (Zofran Inj) 4 mg IVP Q4 PRN PRN Reason: Nausea/Vomiting Last Admin: 01/30/19 17:43 Dose: 4 mg Pantoprazole Sodium (Protonix Inj) 40 mg IVP DAILY [facility] Last Admin: 02/01/19 09:47 Dose: 40 mg - Labs Labs: 01/30/19 15:51 01/30/19 15:51 PT 21.4 Seconds (9.8-13.1) H 01/23/19 05:45 INR 1.9 01/23/19 05:45 APTT 27.7 Seconds (25.6-37.1) 01/15/19 05:20 - Constitutional Appears: Non-toxic, No Acute Distress - Respiratory Exam Respiratory Exam: NORMAL BREATHING PATTERN - Cardiovascular Exam Cardiovascular Exam: +S1, +S2 - GI/Abdominal Exam GI & Abdominal Exam: Distended, Soft - Neurological Exam Neurological Exam: Awake. absent: Oriented x3 Assessment and Plan - Assessment and Plan (Free Text) Assessment: 38 year old female who presented with SBO s/p exlap, s/p push enteroscopy and di agnostic lap converted open with SBR/anastomosis Plan: - Patient surgically stable, patient needs psychiatric treatment - Will speak with psychiatry about possible transfer to psychiatric care - Regular diet -Zyprexa IM Q12H -Clozapine 300 BID -Further recs per Dr. Valencia <Franklyn Valencia - Last Filed: 02/03/19 11:13> Objective - Vital Signs/Intake and Output Vital Signs (last 24 hours): Temp Pulse Resp BP Pulse Ox 99 F 100 H 20 110/75 94 L 02/02/19 13:00 02/02/19 17:00 02/02/19 13:00 02/02/19 17:00 02/02/19 13:00 - Medications Medications: Current Medications Acetaminophen (Tylenol 650 Mg Supp) 650 mg [place] Q6 PRN PRN Reason: Pain, moderate (4-7) Chlorpromazine (Thorazine) 50 mg IM Q4 PRN PRN Reason: Agitation Last Admin: 02/02/19 00:11 Dose: 50 mg Clozapine (Clozaril) 300 mg PO Q12H [facility] Last Admin: 02/02/19 21:06 Dose: 300 mg Diphenhydramine HCl (Benadryl) 25 mg IM Q4 PRN PRN Reason: Allergy symptoms Last Admin: 02/02/19 00:11 Dose: 25 mg Docusate Sodium (Colace Liquid) 100 mg NG BID [facility] Last Admin: 02/02/19 16:46 Dose: Not Given Enoxaparin Sodium (Lovenox) 40 mg SC DAILY [facility]; Protocol Last Admin: 02/02/19 12:30 Dose: 40 mg Ceftriaxone Sodium 1 gm/ (Sodium Chloride) 100 mls @ 100 mls/hr IVPB ONCE ONE; Protocol Stop: 02/03/19 12:01 Lidocaine (Lidoderm) 1 ea TD DAILY [facility] Last Admin: 02/02/19 08:41 Dose: Not Given Mirtazapine (Remeron) 30 mg PO HS [facility] Last Admin: 02/02/19 21:06 Dose: 30 mg Ondansetron HCl (Zofran Inj) 4 mg IVP Q4 PRN PRN Reason: Nausea/Vomiting Last Admin: 01/30/19 17:43 Dose: 4 mg Pantoprazole Sodium (Protonix Inj) 40 mg IVP DAILY [facility] Last Admin: 02/02/19 08:51 Dose: Not Given - Labs Labs: 01/30/19 15:51 01/30/19 15:51 PT 21.4 Seconds (9.8-13.1) H 01/23/19 05:45 INR 1.9 01/23/19 05:45 APTT 27.7 Seconds (25.6-37.1) 01/15/19 05:20 Assessment and Plan - Assessment and Plan (Free Text) Plan: All medical record entries made by the resident were at my direction. I have reviewed the chart and agree that the record accurately reflects my personal performance of the history, physical exam, and medical decision making for this patient.
[2019-02-02] MEDS: Lidocaine 5% Patch TD SCH (08:41)
--- NOTE | 2019-02-02 12:18 | CP.PCM.CON ---
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 Patient is uncooperative w/ treatment and medications. Patient seems acutely decompensated. She can not engage in a conversation at this time to discuss risks/benefits of treatment. Impression: 38 yo female w/ cerebral palsy, schizophrenia, currently acutely psychotic, refusing medications/treatment. -Recommend to screen for involuntary psychiatric admission when patient is medically clear -Patient does not have capacity to make medical decisions at his time Past Patient History - Past Medical History & Family History Past Medical History?: Yes - Past Social History Alcohol: None - CARDIAC Hx Pacemaker: No - PULMONARY Hx Respiratory Disorders: No - NEUROLOGICAL Hx Seizures: Yes - HEENT Hx HEENT Problems: No - RENAL Hx Chronic Kidney Disease: No - ENDOCRINE/METABOLIC Hx Endocrine Disorders: No - HEMATOLOGICAL/ONCOLOGICAL Hx Cancer: No - INTEGUMENTARY Hx Dermatological Problems: No - MUSCULOSKELETAL/RHEUMATOLOGICAL Hx Musculoskeletal Disorders: No Hx Falls: No - GASTROINTESTINAL Hx Gastrointestinal Disorders: No - GENITOURINARY/GYNECOLOGICAL Hx Genitourinary Disorders: No - PSYCHIATRIC Hx Substance Use: No - SURGICAL HISTORY Hx Mastectomy: No - ANESTHESIA Hx Anesthesia: Yes Hx Anesthesia Reactions: No Hx Malignant Hyperthermia: No Has any member of the family had a problem w/ anesthesia?: No Meds Allergies/Adverse Reactions: Allergies Allergy/AdvReac Type Severity Reaction Status Date / Time haloperidol [From Haldol] Allergy RASH Verified 01/14/19 19:41 latex Allergy RASH Verified 01/14/19 19:41 lithium Allergy RASH Verified 01/14/19 19:41 - Medications Medications: Current Medications Acetaminophen (Tylenol 650 Mg Supp) 650 mg [place] Q6 PRN PRN Reason: Pain, moderate (4-7) Chlorpromazine (Thorazine) 50 mg IM Q4 PRN PRN Reason: Agitation Last Admin: 02/02/19 00:11 Dose: 50 mg Clozapine (Clozaril) 300 mg PO Q12H [facility] Last Admin: 02/01/19 22:12 Dose: Not Given Diphenhydramine HCl (Benadryl) 25 mg IM Q4 PRN PRN Reason: Allergy symptoms Last Admin: 02/02/19 00:11 Dose: 25 mg Docusate Sodium (Colace Liquid) 100 mg NG BID [facility] Last Admin: 02/02/19 08:40 Dose: Not Given Enoxaparin Sodium (Lovenox) 40 mg SC DAILY [facility]; Protocol Lidocaine (Lidoderm) 1 ea TD DAILY [facility] Last Admin: 02/02/19 08:41 Dose: Not Given Mirtazapine (Remeron) 30 mg PO HS [facility] Last Admin: 02/01/19 22:12 Dose: Not Given Ondansetron HCl (Zofran Inj) 4 mg IVP Q4 PRN PRN Reason: Nausea/Vomiting Last Admin: 01/30/19 17:43 Dose: 4 mg Pantoprazole Sodium (Protonix Inj) 40 mg IVP DAILY [facility] Last Admin: 02/02/19 08:51 Dose: Not Given Results - Vital Signs Recent Vital Signs: Last Vital Signs Temp 99.1 F 02/01/19 17:00 Pulse 98 H 02/02/19 00:12 Resp 18 02/02/19 00:25 BP 110/70 02/02/19 00:25 Pulse Ox 95 02/01/19 06:35 - Labs Result Diagrams: 01/30/19 15:51 01/30/19 15:51
[2019-02-02] MEDS: Enoxaparin 40 mg Syringe SC SCH (12:30)
--- NOTE | 2019-02-02 13:21 | CP.PCM.PN ---
<Barbara Caro - Last Filed: 02/02/19 13:28> Subjective - Date & Time of Evaluation Date of Evaluation: 02/02/19 Time of Evaluation: 13:21 - Subjective Subjective: Patient seen and examined this morning at bedside. Patient laying in bed, muttering incoherent prayers to herself. She is medically stable and cleared for transfer to [facility] pending surgical recommendations. Objective - Vital Signs/Intake and Output Vital Signs (last 24 hours): Temp Pulse Resp BP Pulse Ox 99.1 F 109 H 18 111/75 95 02/01/19 17:00 02/02/19 12:21 02/02/19 00:25 02/02/19 12:21 02/01/19 06:35 - Medications Medications: Current Medications Acetaminophen (Tylenol 650 Mg Supp) 650 mg [place] Q6 PRN PRN Reason: Pain, moderate (4-7) Chlorpromazine (Thorazine) 50 mg IM Q4 PRN PRN Reason: Agitation Last Admin: 02/02/19 00:11 Dose: 50 mg Clozapine (Clozaril) 300 mg PO Q12H [facility] Last Admin: 02/02/19 12:28 Dose: Not Given Diphenhydramine HCl (Benadryl) 25 mg IM Q4 PRN PRN Reason: Allergy symptoms Last Admin: 02/02/19 00:11 Dose: 25 mg Docusate Sodium (Colace Liquid) 100 mg NG BID [facility] Last Admin: 02/02/19 08:40 Dose: Not Given Enoxaparin Sodium (Lovenox) 40 mg SC DAILY [facility]; Protocol Last Admin: 02/02/19 12:30 Dose: 40 mg Lidocaine (Lidoderm) 1 ea TD DAILY [facility] Last Admin: 02/02/19 08:41 Dose: Not Given Mirtazapine (Remeron) 30 mg PO HS [facility] Last Admin: 02/01/19 22:12 Dose: Not Given Ondansetron HCl (Zofran Inj) 4 mg IVP Q4 PRN PRN Reason: Nausea/Vomiting Last Admin: 01/30/19 17:43 Dose: 4 mg Pantoprazole Sodium (Protonix Inj) 40 mg IVP DAILY [facility] Last Admin: 02/02/19 08:51 Dose: Not Given - Labs Labs: 01/30/19 15:51 01/30/19 15:51 PT 21.4 Seconds (9.8-13.1) H 01/23/19 05:45 INR 1.9 01/23/19 05:45 APTT 27.7 Seconds (25.6-37.1) 01/15/19 05:20 - Constitutional Appears: Unkempt, Agitated, Confused - Respiratory Exam Respiratory Exam: NORMAL BREATHING PATTERN - Neurological Exam Neurological Exam: Altered - Psychiatric Exam Psychiatric exam: Agitated. absent: Anxious, Depressed, Flat Affect, Normal Affect, Normal Mood Additional comments: incoherent, Assessment and Plan - Assessment and Plan (Free Text) Assessment: 38 y/o woman w/ PMH of cerebral palsy, unknown history of seizures, anxiety admitted for SBO, s/p laparoscopic assisted push endoscopy, adhesion lysis, small bowel resection w/ primary side to side anastamoses, incidental appendectomy. Medical team was consulted due to patient becoming agitated, confused, stripped naked, and removed all blood lines. Plan: Psychosis -Psych consult, Dr. Mohan, recommendations appreciated -Pt refusing all medications at this time - thorazine 50 mg IM Q6, benadryl 25 mg IM Q6h, ativan 1 mg IM Q6h -Medically cleared for discharge to psych pending surgical recommendations <Lary Ramirez - Last Filed: 02/02/19 17:08> Objective - Vital Signs/Intake and Output Vital Signs (last 24 hours): Temp Pulse Resp BP Pulse Ox 99 F 100 H 20 115/75 94 L 02/02/19 13:00 02/02/19 13:00 02/02/19 13:00 02/02/19 13:00 02/02/19 13:00 - Medications Medications: Current Medications Acetaminophen (Tylenol 650 Mg Supp) 650 mg [place] Q6 PRN PRN Reason: Pain, moderate (4-7) Chlorpromazine (Thorazine) 50 mg IM Q4 PRN PRN Reason: Agitation Last Admin: 02/02/19 00:11 Dose: 50 mg Clozapine (Clozaril) 300 mg PO Q12H [facility] Last Admin: 02/02/19 12:28 Dose: Not Given Diphenhydramine HCl (Benadryl) 25 mg IM Q4 PRN PRN Reason: Allergy symptoms Last Admin: 02/02/19 00:11 Dose: 25 mg Docusate Sodium (Colace Liquid) 100 mg NG BID [facility] Last Admin: 02/02/19 16:46 Dose: Not Given Enoxaparin Sodium (Lovenox) 40 mg SC DAILY [facility]; Protocol Last Admin: 02/02/19 12:30 Dose: 40 mg Lidocaine (Lidoderm) 1 ea TD DAILY [facility] Last Admin: 02/02/19 08:41 Dose: Not Given Mirtazapine (Remeron) 30 mg PO HS [facility] Last Admin: 02/01/19 22:12 Dose: Not Given Ondansetron HCl (Zofran Inj) 4 mg IVP Q4 PRN PRN Reason: Nausea/Vomiting Last Admin: 01/30/19 17:43 Dose: 4 mg Pantoprazole Sodium (Protonix Inj) 40 mg IVP DAILY [facility] Last Admin: 02/02/19 08:51 Dose: Not Given - Labs Labs: 01/30/19 15:51 01/30/19 15:51 PT 21.4 Seconds (9.8-13.1) H 01/23/19 05:45 INR 1.9 01/23/19 05:45 APTT 27.7 Seconds (25.6-37.1) 01/15/19 05:20 Attending/Attestation - Attestation I have personally seen and examined this patient.: Yes I have fully participated in the care of the patient.: Yes I have reviewed all pertinent clinical information, including history, physical exam and plan: Yes Notes (Text): SBO s/p Explor Lap s/p Bowel Resection and anastomosis Schizophrenia, acutely Psychotic Psych recommends Involuntary Psych admission Pt refusing to eat nor take meds Pt medically clear for discharge for Involuntary Psych admission
--- NOTE | 2019-02-03 07:48 | CP.PCM.PN ---
<Katya Byrne - Last Filed: 02/04/19 09:06> Subjective - Date & Time of Evaluation Date of Evaluation: 02/03/19 Time of Evaluation: 07:46 - Subjective Subjective: General surgery progress note: Dr. Valencia 38 year old female patient seen and examined at bedside. Patient resting comfortably and in NAD at this time. Patient is calm and shows no signs of agitation this morning. Per nursing, patient was agreeable to PO meds, jello and apple juice last night. Objective - Vital Signs/Intake and Output Vital Signs (last 24 hours): Temp Pulse Resp BP Pulse Ox 99 F 100 H 20 110/75 94 L 02/02/19 13:00 02/02/19 17:00 02/02/19 13:00 02/02/19 17:00 02/02/19 13:00 - Medications Medications: Current Medications Acetaminophen (Tylenol 650 Mg Supp) 650 mg [place] Q6 PRN PRN Reason: Pain, moderate (4-7) Chlorpromazine (Thorazine) 50 mg IM Q4 PRN PRN Reason: Agitation Last Admin: 02/02/19 00:11 Dose: 50 mg Clozapine (Clozaril) 300 mg PO Q12H [facility] Last Admin: 02/02/19 21:06 Dose: 300 mg Diphenhydramine HCl (Benadryl) 25 mg IM Q4 PRN PRN Reason: Allergy symptoms Last Admin: 02/02/19 00:11 Dose: 25 mg Docusate Sodium (Colace Liquid) 100 mg NG BID [facility] Last Admin: 02/02/19 16:46 Dose: Not Given Enoxaparin Sodium (Lovenox) 40 mg SC DAILY [facility]; Protocol Last Admin: 02/02/19 12:30 Dose: 40 mg Lidocaine (Lidoderm) 1 ea TD DAILY [facility] Last Admin: 02/02/19 08:41 Dose: Not Given Mirtazapine (Remeron) 30 mg PO HS [facility] Last Admin: 02/02/19 21:06 Dose: 30 mg Ondansetron HCl (Zofran Inj) 4 mg IVP Q4 PRN PRN Reason: Nausea/Vomiting Last Admin: 01/30/19 17:43 Dose: 4 mg Pantoprazole Sodium (Protonix Inj) 40 mg IVP DAILY [facility] Last Admin: 02/02/19 08:51 Dose: Not Given - Labs Labs: 01/30/19 15:51 01/30/19 15:51 PT 21.4 Seconds (9.8-13.1) H 01/23/19 05:45 INR 1.9 01/23/19 05:45 APTT 27.7 Seconds (25.6-37.1) 01/15/19 05:20 - Constitutional Appears: Non-toxic, No Acute Distress - Head Exam Head Exam: ATRAUMATIC, NORMOCEPHALIC - Respiratory Exam Respiratory Exam: Clear to Ausculation Bilateral, NORMAL BREATHING PATTERN - Cardiovascular Exam Cardiovascular Exam: REGULAR RHYTHM - GI/Abdominal Exam GI & Abdominal Exam: Distended, Soft - Extremities Exam Extremities Exam: absent: Pedal Edema - Neurological Exam Neurological Exam: Alert, Awake, Oriented x3 - Psychiatric Exam Psychiatric exam: Normal Affect, Normal Mood Assessment and Plan - Assessment and Plan (Free Text) Assessment: 38 year old female who presented with SBO s/p exlap, s/p push enteroscopy and diagnostic lap converted open with SBR/anastomosis Plan: - Patient surgically stable, patient needs psychiatric treatment - Will speak with psychiatry about possible transfer to psychiatric care - Regular diet - Zyprexa IM Q12H - Clozapine 300 BID - Further recs per Dr. Valencia <Franklyn Valencia - Last Filed: 02/09/19 17:30> Objective - Vital Signs/Intake and Output Vital Signs (last 24 hours): Temp Pulse Resp BP Pulse Ox 98.4 F 108 H 17 107/68 97 02/09/19 16:23 02/09/19 16:23 02/09/19 16:23 02/09/19 16:23 02/09/19 16:23 - Medications Medications: Current Medications Acetaminophen (Tylenol 650 Mg Supp) 650 mg [place] Q6 PRN PRN Reason: Pain, moderate (4-7) Benzocaine/Menthol (Cepacol Sore Throat) 1 rebecca PO Q3 PRN PRN Reason: Sore Throat Chlorpromazine (Thorazine) 50 mg IM Q4 PRN PRN Reason: Agitation Last Admin: 02/02/19 00:11 Dose: 50 mg Clozapine (Clozaril) 300 mg PO Q12H [facility] Last Admin: 02/09/19 11:08 Dose: 300 mg Diphenhydramine HCl (Benadryl) 25 mg IM Q4 PRN PRN Reason: Allergy symptoms Last Admin: 02/02/19 00:11 Dose: 25 mg Docusate Sodium (Colace Liquid) 100 mg PO BID [facility] Last Admin: 02/09/19 16:53 Dose: 100 mg Enoxaparin Sodium (Lovenox) 40 mg SC DAILY [facility]; Protocol Last Admin: 02/09/19 09:15 Dose: 40 mg Ceftriaxone Sodium 1 gm/ (Sodium Chloride) 100 mls @ 100 mls/hr IVPB DAILY [facility]; Protocol Last Admin: 02/09/19 09:16 Dose: 100 mls/hr Vancomycin HCl 1 gm/ Sodium (Chloride) 250 mls @ 166.667 mls/hr IVPB DAILY [facility]; Protocol Last Admin: 02/09/19 10:58 Dose: 166.667 mls/hr Lidocaine (Lidoderm) 1 ea TD DAILY [facility] Last Admin: 02/09/19 09:15 Dose: 1 ea Mirtazapine (Remeron) 30 mg PO HS [facility] Last Admin: 02/08/19 21:36 Dose: 30 mg Ondansetron HCl (Zofran Inj) 4 mg IVP Q4 PRN PRN Reason: Nausea/Vomiting Last Admin: 01/30/19 17:43 Dose: 4 mg Pantoprazole Sodium (Protonix Inj) 40 mg IVP DAILY [facility] Last Admin: 02/09/19 09:16 Dose: 40 mg - Labs Labs: 02/07/19 05:30 02/07/19 05:30 PT 21.4 Seconds (9.8-13.1) H 01/23/19 05:45 INR 1.9 01/23/19 05:45 APTT 27.7 Seconds (25.6-37.1) 01/15/19 05:20 Assessment and Plan - Assessment and Plan (Free Text) Plan: All medical record entries made by the resident were at my direction. I have reviewed the chart and agree that the record accurately reflects my personal performance of the history, physical exam, and medical decision making.
--- NOTE | 2019-02-03 09:40 | CP.PCM.CON ---
History of Present Illness - History of Present Illness History of Present Illness: Psychiatry consult follow-up note HPI: 38 yo female w/ cerebral palsy, schizophrenia, was screened by [facility] and found not meet criteria for involuntary psychiatric commitment. She denies acute depression/anxiety/AH/VH/SI/HI. She does not want psychiatric admission and wants to go home. She has been taking the Clozapine. Patient informed that she needs to continue taking her medications. Impression: 38 yo female w/ cerebral palsy, schizophrenia, currently compliant with medications; does not meet criteria for involuntary psychiatric commitment as per [facility] screeners. -Patient is psychiatrically clear for discharge at this time Past Patient History - Past Medical History & Family History Past Medical History?: Yes - Past Social History Alcohol: None - CARDIAC Hx Pacemaker: No - PULMONARY Hx Respiratory Disorders: No - NEUROLOGICAL Hx Seizures: Yes - HEENT Hx HEENT Problems: No - RENAL Hx Chronic Kidney Disease: No - ENDOCRINE/METABOLIC Hx Endocrine Disorders: No - HEMATOLOGICAL/ONCOLOGICAL Hx Cancer: No - INTEGUMENTARY Hx Dermatological Problems: No - MUSCULOSKELETAL/RHEUMATOLOGICAL Hx Musculoskeletal Disorders: No Hx Falls: No - GASTROINTESTINAL Hx Gastrointestinal Disorders: No - GENITOURINARY/GYNECOLOGICAL Hx Genitourinary Disorders: No - PSYCHIATRIC Hx Substance Use: No - SURGICAL HISTORY Hx Mastectomy: No - ANESTHESIA Hx Anesthesia: Yes Hx Anesthesia Reactions: No Hx Malignant Hyperthermia: No Has any member of the family had a problem w/ anesthesia?: No Meds Allergies/Adverse Reactions: Allergies Allergy/AdvReac Type Severity Reaction Status Date / Time haloperidol [From Haldol] Allergy RASH Verified 01/14/19 19:41 latex Allergy RASH Verified 01/14/19 19:41 lithium Allergy RASH Verified 01/14/19 19:41 - Medications Medications: Current Medications Acetaminophen (Tylenol 650 Mg Supp) 650 mg [place] Q6 PRN PRN Reason: Pain, moderate (4-7) Chlorpromazine (Thorazine) 50 mg IM Q4 PRN PRN Reason: Agitation Last Admin: 02/02/19 00:11 Dose: 50 mg Clozapine (Clozaril) 300 mg PO Q12H [facility] Last Admin: 02/02/19 21:06 Dose: 300 mg Diphenhydramine HCl (Benadryl) 25 mg IM Q4 PRN PRN Reason: Allergy symptoms Last Admin: 02/02/19 00:11 Dose: 25 mg Docusate Sodium (Colace Liquid) 100 mg NG BID [facility] Last Admin: 02/02/19 16:46 Dose: Not Given Enoxaparin Sodium (Lovenox) 40 mg SC DAILY [facility]; Protocol Last Admin: 02/02/19 12:30 Dose: 40 mg Lidocaine (Lidoderm) 1 ea TD DAILY [facility] Last Admin: 02/02/19 08:41 Dose: Not Given Mirtazapine (Remeron) 30 mg PO HS [facility] Last Admin: 02/02/19 21:06 Dose: 30 mg Ondansetron HCl (Zofran Inj) 4 mg IVP Q4 PRN PRN Reason: Nausea/Vomiting Last Admin: 01/30/19 17:43 Dose: 4 mg Pantoprazole Sodium (Protonix Inj) 40 mg IVP DAILY [facility] Last Admin: 02/02/19 08:51 Dose: Not Given Results - Vital Signs Recent Vital Signs: Last Vital Signs Temp 99 F 02/02/19 13:00 Pulse 100 H 02/02/19 17:00 Resp 20 02/02/19 13:00 BP 110/75 02/02/19 17:00 Pulse Ox 94 L 02/02/19 13:00 - Labs Result Diagrams: 01/30/19 15:51 01/30/19 15:51
[2019-02-03] MEDS: Enoxaparin 40 mg Syringe SC SCH (11:25)
[2019-02-03] MEDS: Lidocaine 5% Patch TD SCH (11:26)
--- NOTE | 2019-02-03 12:40 | CP.PCM.PN ---
<Barbara Caro - Last Filed: 02/03/19 13:10> Subjective - Date & Time of Evaluation Date of Evaluation: 02/03/19 Time of Evaluation: 12:42 - Subjective Subjective: Patient seen bedside and verbally agreed to begin taking solids (previously refused). Urine culture results show >100,000 CFU E. Coli & S. Epidermidis, treated with Ceftriaxone 1gm IV, d/c on Macrobid 100mg PO Q12 x5 days. Objective - Vital Signs/Intake and Output Vital Signs (last 24 hours): Temp Pulse Resp BP Pulse Ox 99 F 101 H 18 110/71 95 02/02/19 13:00 02/03/19 11:23 02/03/19 11:23 02/03/19 11:23 02/03/19 11:23 - Medications Medications: Current Medications Acetaminophen (Tylenol 650 Mg Supp) 650 mg [place] Q6 PRN PRN Reason: Pain, moderate (4-7) Chlorpromazine (Thorazine) 50 mg IM Q4 PRN PRN Reason: Agitation Last Admin: 02/02/19 00:11 Dose: 50 mg Clozapine (Clozaril) 300 mg PO Q12H [facility] Last Admin: 02/03/19 11:25 Dose: 300 mg Diphenhydramine HCl (Benadryl) 25 mg IM Q4 PRN PRN Reason: Allergy symptoms Last Admin: 02/02/19 00:11 Dose: 25 mg Docusate Sodium (Colace Liquid) 100 mg NG BID [facility] Last Admin: 02/03/19 11:25 Dose: 100 mg Enoxaparin Sodium (Lovenox) 40 mg SC DAILY [facility]; Protocol Last Admin: 02/03/19 11:25 Dose: 40 mg Lidocaine (Lidoderm) 1 ea TD DAILY [facility] Last Admin: 02/03/19 11:26 Dose: Not Given Mirtazapine (Remeron) 30 mg PO HS [facility] Last Admin: 02/02/19 21:06 Dose: 30 mg Ondansetron HCl (Zofran Inj) 4 mg IVP Q4 PRN PRN Reason: Nausea/Vomiting Last Admin: 01/30/19 17:43 Dose: 4 mg Pantoprazole Sodium (Protonix Inj) 40 mg IVP DAILY [facility] Last Admin: 02/03/19 11:26 Dose: 40 mg - Labs Labs: 01/30/19 15:51 01/30/19 15:51 PT 21.4 Seconds (9.8-13.1) H 01/23/19 05:45 INR 1.9 01/23/19 05:45 APTT 27.7 Seconds (25.6-37.1) 01/15/19 05:20 - Constitutional Appears: Unkempt, Older Than Stated Age, Chronically Ill - ENT Exam ENT Exam: Mucous Membranes Dry - Respiratory Exam Respiratory Exam: absent: Respiratory Distress - Neurological Exam Neurological Exam: Altered - Skin Skin Exam: Dry, Intact Assessment and Plan - Assessment and Plan (Free Text) Assessment: 38 y/o woman w/ PMH of cerebral palsy, unknown history of seizures, anxiety admitted for SBO, s/p laparoscopic assisted push endoscopy, adhesion lysis, small bowel resection w/ primary side to side anastamoses, incidental appendectomy. Medical team was consulted due to patient becoming agitated, confused, stripped naked, and removed all blood lines. Plan: Psychosis -Psych consult, Dr. Mohan, recommendations appreciated -Pt refusing all medications at this time - thorazine 50 mg IM Q6, benadryl 25 mg IM Q6h, ativan 1 mg IM Q6h -Medically cleared for discharge to psych pending surgical recommendations UTI -UCx: >100,000 CFU E. Coli & S. Epidermidis -Ceftriaxone 1 gm IV -d/c on macrobid 100mg PO Q12 x5 days <Lary Ramirez - Last Filed: 02/03/19 20:15> Objective - Vital Signs/Intake and Output Vital Signs (last 24 hours): Temp Pulse Resp BP Pulse Ox 97.8 F 102 H 18 108/74 97 02/03/19 16:10 02/03/19 16:10 02/03/19 16:10 02/03/19 16:10 02/03/19 16:10 - Medications Medications: Current Medications Acetaminophen (Tylenol 650 Mg Supp) 650 mg [place] Q6 PRN PRN Reason: Pain, moderate (4-7) Chlorpromazine (Thorazine) 50 mg IM Q4 PRN PRN Reason: Agitation Last Admin: 02/02/19 00:11 Dose: 50 mg Clozapine (Clozaril) 300 mg PO Q12H [facility] Last Admin: 02/03/19 11:25 Dose: 300 mg Diphenhydramine HCl (Benadryl) 25 mg IM Q4 PRN PRN Reason: Allergy symptoms Last Admin: 02/02/19 00:11 Dose: 25 mg Docusate Sodium (Colace Liquid) 100 mg NG BID [facility] Last Admin: 02/03/19 16:48 Dose: 100 mg Enoxaparin Sodium (Lovenox) 40 mg SC DAILY [facility]; Protocol Last Admin: 02/03/19 11:25 Dose: 40 mg Ceftriaxone Sodium 1 gm/ (Sodium Chloride) 100 mls @ 100 mls/hr IVPB DAILY [facility]; Protocol Lidocaine (Lidoderm) 1 ea TD DAILY [facility] Last Admin: 02/03/19 11:26 Dose: Not Given Mirtazapine (Remeron) 30 mg PO HS [facility] Last Admin: 02/02/19 21:06 Dose: 30 mg Ondansetron HCl (Zofran Inj) 4 mg IVP Q4 PRN PRN Reason: Nausea/Vomiting Last Admin: 01/30/19 17:43 Dose: 4 mg Pantoprazole Sodium (Protonix Inj) 40 mg IVP DAILY [facility] Last Admin: 02/03/19 11:26 Dose: 40 mg - Labs Labs: 01/30/19 15:51 01/30/19 15:51 PT 21.4 Seconds (9.8-13.1) H 01/23/19 05:45 INR 1.9 01/23/19 05:45 APTT 27.7 Seconds (25.6-37.1) 01/15/19 05:20 Attending/Attestation - Attestation I have personally seen and examined this patient.: Yes I have fully participated in the care of the patient.: Yes I have reviewed all pertinent clinical information, including history, physical exam and plan: Yes Notes (Text): SBO s/p Explor Lap , Bowel Resection and anastomosis Schizophrenia UTI Psych cleared pt for discharge from Psych standpoint IV Ceftriaxone daily for UTI If pt is for discharge - d/c home on PO Nitrofurantoin
[2019-02-04 06:44] LABS: ALB/GLOB RATIO 1.2 (1.0-2.1); ALBUMIN 3.5 g/dL (3.5-5.0); ALT/SGPT 42 U/L (9-52); AST/SGOT 25 U/L (14-36); BASO # 0.1 K/uL (0.0-0.2); BASO % 0.8 % (0.0-2.0); BLOOD UREA NITROGEN 10 mg/dl (7-17); CALCIUM 9.4 mg/dL (8.4-10.2); EOS # 0.8 K/uL (0.0-0.7); EOS % 10.9 % (0.0-4.0); GFR NON-AFRICAN AMERICAN > 60; HEMOGLOBIN 11.8 g/dL (12.0-16.0); LYMPH # 1.5 K/uL (1.0-4.3); LYMPH % 21.5 % (20.0-40.0); MEAN CELL VOLUME 89.6 fl (81.0-99.0); MEAN CORPUSCULAR HEMOGLOBIN 29.3 pg (27.0-31.0); MEAN CORPUSCULAR HGB CONC 32.7 g/dL (33.0-37.0); MEAN PLATELET VOLUME 9.2 fl (7.2-11.7); MONO # 0.7 K/uL (0.0-0.8); MONO % 10.2 % (0.0-10.0); NEUT % 56.6 % (50.0-75.0); NRBC % 0.1 % (0.0-0.0); RBC 4.04 Mil/uL (3.80-5.20); RED CELL DISTRIBUTION WIDTH 13.6 % (11.5-14.5)
[2019-02-04] MEDS ORDERED: Potassium Chloride 20 mEq/15 ml LIQ UD PO ONE (09:00)
[2019-02-04] MEDS: Lidocaine 5% Patch TD SCH (09:19)
[2019-02-04] MEDS: Enoxaparin 40 mg Syringe SC SCH (09:20)
--- NOTE | 2019-02-04 11:09 | CP.PCM.PN ---
Subjective - Date & Time of Evaluation Date of Evaluation: 02/04/19 Time of Evaluation: 11:09 - Subjective Subjective: General surgery progress note: Dr. Valencia 38 year old female patient seen at bedside this morning. Patient resting comfortably and in NAD. Per chart, no acute events overnight. Objective - Vital Signs/Intake and Output Vital Signs (last 24 hours): Temp Pulse Resp BP Pulse Ox 98.4 F 98 H 20 111/76 96 02/04/19 08:10 02/04/19 08:10 02/04/19 08:10 02/04/19 08:10 02/04/19 08:10 - Medications Medications: Current Medications Acetaminophen (Tylenol 650 Mg Supp) 650 mg [place] Q6 PRN PRN Reason: Pain, moderate (4-7) Chlorpromazine (Thorazine) 50 mg IM Q4 PRN PRN Reason: Agitation Last Admin: 02/02/19 00:11 Dose: 50 mg Clozapine (Clozaril) 300 mg PO Q12H [facility] Last Admin: 02/04/19 09:20 Dose: 300 mg Diphenhydramine HCl (Benadryl) 25 mg IM Q4 PRN PRN Reason: Allergy symptoms Last Admin: 02/02/19 00:11 Dose: 25 mg Docusate Sodium (Colace) 100 mg PO BID [facility] Enoxaparin Sodium (Lovenox) 40 mg SC DAILY D[facility]; Protocol Last Admin: 02/04/19 09:20 Dose: 40 mg Ceftriaxone Sodium 1 gm/ (Sodium Chloride) 100 mls @ 100 mls/hr IVPB DAILY [facility]; Protocol Last Admin: 02/04/19 09:16 Dose: 100 mls/hr Lidocaine (Lidoderm) 1 ea TD DAILY [facility] Last Admin: 02/04/19 09:19 Dose: 1 ea Mirtazapine (Remeron) 30 mg PO HS [facility] Last Admin: 02/03/19 22:00 Dose: 30 mg Ondansetron HCl (Zofran Inj) 4 mg IVP Q4 PRN PRN Reason: Nausea/Vomiting Last Admin: 01/30/19 17:43 Dose: 4 mg Pantoprazole Sodium (Protonix Inj) 40 mg IVP DAILY [facility] Last Admin: 02/03/19 11:26 Dose: 40 mg Potassium Chloride (K-Dur 20 Meq Er Tab) 40 meq PO Q2H [facility] Stop: 02/04/19 14:31 - Labs Labs: 02/04/19 06:15 02/04/19 06:15 PT 21.4 Seconds (9.8-13.1) H 01/23/19 05:45 INR 1.9 01/23/19 05:45 APTT 27.7 Seconds (25.6-37.1) 01/15/19 05:20 - Constitutional Appears: Non-toxic, No Acute Distress - Head Exam Head Exam: ATRAUMATIC, NORMOCEPHALIC - Respiratory Exam Respiratory Exam: Clear to Ausculation Bilateral - Cardiovascular Exam Cardiovascular Exam: +S1, +S2 - GI/Abdominal Exam GI & Abdominal Exam: Soft. absent: Guarding, Tenderness - Back Exam Back Exam: absent: CVA tenderness (L), CVA tenderness (R) - Neurological Exam Neurological Exam: Alert, Awake - Psychiatric Exam Psychiatric exam: Normal Affect - Skin Skin Exam: Dry, Intact Assessment and Plan - Assessment and Plan (Free Text) Assessment: 38 year old female who presented with SBO s/p exlap, s/p push enteroscopy and diagnostic lap converted open with SBR/anastomosis Plan: - Patient surgically stable, patient needs psychiatric treatment - Will speak with psychiatry about possible transfer to psychiatric care - Screened by [facility] and did not meet criteria for involuntary psychiatric commitment - Regular diet - Zyprexa IM Q12H - Clozapine 300 BID - Further recs per Dr. Valencia
[2019-02-04] MEDS: Potassium Chloride 20 mEq ER Tab PO SCH ×3 (11:36→16:15)
--- NOTE | 2019-02-04 11:45 | CP.PCM.DIS ---
Provider - Provider Date of Admission: 01/15/19 04:26 Attending physician: Franklyn Valencia MD Consults: 01/15/19 01:43 Surgery [General Surgery Consult] Stat Comment: Consulting Provider: Franklyn Valencia Consulting Physician: Franklyn Valencia Reason for Consult: SBO, abd pain 01/28/19 12:38 Internal Medicine Consult Routine Comment: Consulting Provider: Lary Ramirez Consulting Physician: Lary Ramirez Reason for Consult: medical management Psychiatry Consult Routine Comment: Consulting Provider: Markus Mohan Consulting Physician: Markus Mohan Reason for Consult: schizophrenia Time Spent in preparation of Discharge (in minutes): 30 Hospital Course - Lab Results Lab Results: Micro Results 01/30/19 17:15 Urine,Catheterized Urine Culture - Final Escherichia Coli Staphylococcus Epidermidis Most Recent Lab Values WBC 7.0 K/uL (4.8-10.8) 02/04/19 06:15 RBC 4.04 Mil/uL (3.80-5.20) 02/04/19 06:15 Hgb 11.8 g/dL (12.0-16.0) L 02/04/19 06:15 Hct 36.2 % (34.0-47.0) 02/04/19 06:15 MCV 89.6 fl (81.0-99.0) 02/04/19 06:15 MCH 29.3 pg (27.0-31.0) 02/04/19 06:15 MCHC 32.7 g/dL (33.0-37.0) L 02/04/19 06:15 RDW 13.6 % (11.5-14.5) 02/04/19 06:15 Plt Count 337 K/uL (130-400) D 02/04/19 06:15 MPV 9.2 fl (7.2-11.7) 02/04/19 06:15 Neut % (Auto) 56.6 % (50.0-75.0) 02/04/19 06:15 Lymph % (Auto) 21.5 % (20.0-40.0) 02/04/19 06:15 [place] % (Auto) 10.2 % (0.0-10.0) H 02/04/19 06:15 Eos % (Auto) 10.9 % (0.0-4.0) H 02/04/19 06:15 Baso % (Auto) 0.8 % (0.0-2.0) 02/04/19 06:15 Neut # (Auto) 4.0 K/uL (1.8-7.0) 02/04/19 06:15 Lymph # (Auto) 1.5 K/uL (1.0-4.3) 02/04/19 06:15 [place] # (Auto) 0.7 K/uL (0.0-0.8) 02/04/19 06:15 Eos # (Auto) 0.8 K/uL (0.0-0.7) H 02/04/19 06:15 Baso # (Auto) 0.1 K/uL (0.0-0.2) 02/04/19 06:15 Neutrophils % (Manual) 87 % (42-75) H 01/24/19 07:00 Band Neutrophils % 2 % (0-2) 01/24/19 07:00 Lymphocytes % (Manual) 5 % (20-50) L 01/24/19 07:00 Reactive Lymphs % 1 % (0-0) H 01/21/19 06:15 Monocytes % (Manual) 4 % (0-10) 01/24/19 07:00 Eosinophils % (Manual) 2 % (0-7) 01/21/19 06:15 Basophils % (Manual) 1 % (0-2) 01/24/19 07:00 Myelocytes % 1 % (0-0) H 01/24/19 07:00 Toxic Granulation Present 01/24/19 07:00 Platelet Estimate Normal (NORMAL) 01/24/19 07:00 RBC Morphology Normal (NORMAL) 01/24/19 07:00 PT 21.4 Seconds (9.8-13.1) H 01/23/19 05:45 INR 1.9 01/23/19 05:45 APTT 27.7 Seconds (25.6-37.1) 01/15/19 05:20 Sodium 139 mmol/l (132-148) 02/04/19 06:15 Potassium 3.1 MMOL/L (3.6-5.0) L 02/04/19 06:15 Chloride 106 mmol/L (98-107) 02/04/19 06:15 Carbon Dioxide 23 mmol/L (22-30) 02/04/19 06:15 Anion Gap 13 (10-20) 02/04/19 06:15 BUN 10 mg/dl (7-17) 02/04/19 06:15 Creatinine 0.7 mg/dl (0.7-1.2) 02/04/19 06:15 Est GFR ( Amer) > 60 02/04/19 06:15 Est GFR (Non-Af Amer) > 60 02/04/19 06:15 POC Glucose (mg/dL) 67 mg/dL (65-110) 01/20/19 11:33 Random Glucose 115 mg/dL (65-105) H 02/04/19 06:15 Lactic Acid 1.4 mmol/L (0.7-2.1) 01/14/19 20:29 Calcium 9.4 mg/dL (8.4-10.2) 02/04/19 06:15 Phosphorus 4.4 mg/dl (2.5-4.5) 02/04/19 06:15 Magnesium 2.1 MG/DL (1.6-2.3) 02/04/19 06:15 Total Bilirubin 0.4 mg/dl (0.2-1.3) 02/04/19 06:15 AST 25 U/L (14-36) 02/04/19 06:15 ALT 42 U/L (9-52) 02/04/19 06:15 Alkaline Phosphatase 117 U/L (38-126) 02/04/19 06:15 Total Protein 6.5 G/DL (6.3-8.2) 02/04/19 06:15 Albumin 3.5 g/dL (3.5-5.0) 02/04/19 06:15 Globulin 3.0 gm/dL (2.2-3.9) 02/04/19 06:15 Albumin/Globulin Ratio 1.2 (1.0-2.1) 02/04/19 06:15 Lipase 25 U/L (23-300) 01/14/19 20:30 Chromagranin A 204 ng/mL (25-140) H 01/16/19 09:45 Beta HCG, Quant < 2.39 mIU/mL 01/14/19 20:30 Urine Color [place] (YELLOW) 01/30/19 17:15 Urine Clarity Cloudy (Clear) 01/30/19 17:15 Urine pH 5.0 (5.0-8.0) 01/30/19 17:15 Ur Specific [place] 1.029 (1.003-1.030) 01/30/19 17:15 Urine Protein 30 mg/dL (NEGATIVE) 01/30/19 17:15 Urine Glucose (UA) Neg mg/dL (NEGATIVE) 01/30/19 17:15 Urine Ketones Negative mg/dL (NEGATIVE) 01/30/19 17:15 Urine Blood Negative (NEGATIVE) 01/30/19 17:15 Urine Nitrate Negative (NEGATIVE) 01/30/19 17:15 Urine Bilirubin Negative (NEGATIVE) 01/30/19 17:15 Urine Urobilinogen 0.2-1.0 mg/dL (0.2-1.0) 01/30/19 17:15 Ur Leukocyte Esterase Neg Lori/uL (Negative) 01/30/19 17:15 Urine RBC (Auto) 443 /hpf (0-3) H 01/21/19 11:50 Urine Microscopic WBC 3 /hpf (0-5) 01/30/19 17:15 Ur Squamous Epith Cells 5 /hpf (0-5) 01/30/19 17:15 Amorphous Sediment Rare /ul (<OCC) H 01/21/19 11:50 Urine Bacteria Occ (<OCC) H 01/30/19 17:15 Hyaline Casts 3-5 /hpf (0-2) H 01/21/19 11:50 Urine Total Volume 3500 mL/24 h 01/23/19 10:00 Urine 5-HIAA 24 Hour 2.8 mg/24 h (<=6.0) 01/23/19 10:00 Urine Opiates Screen Negative (NEGATIVE) 01/15/19 04:35 Urine Methadone Screen Negative (NEGATIVE) 01/15/19 04:35 Ur Barbiturates Screen Negative (NEGATIVE) 01/15/19 04:35 Ur Phencyclidine Scrn Negative (NEGATIVE) 01/15/19 04:35 Ur Amphetamines Screen Negative (NEGATIVE) 01/15/19 04:35 U Benzodiazepines Scrn Negative (NEGATIVE) 01/15/19 04:35 U Oth Cocaine Metabols Negative (NEGATIVE) 01/15/19 04:35 U Cannabinoids Screen Negative (NEGATIVE) 01/15/19 04:35 Alcohol, Quantitative Cancelled 01/14/19 20:30 Blood Type O POSITIVE 01/23/19 09:45 Blood Type Confirm O POSITIVE 01/15/19 09:25 Antibody Screen Negative 01/23/19 09:45 BBK History Checked Patient has bt 01/23/19 09:45 - Hospital Course Hospital Course: 38F with a PMH that includes cerebral palsy, schizophrenia, anxiety admitted for SBO. During her hospital stay, patient underwent diagnostic laparoscopy converted to open with repair of enterotomy followed by a small bowel resection. During her hospital course, patient developed psychosis and hallucinations, refusing PO medications and diet. Patient was evaluated by psych and placed on Zyprexa and Clozapine, psychosis and hallucinations resolved. Patient was screened by [facility] for involuntary psychiatric admission for further stabilization and was found to not meet criteria for involuntary psychiatric commitment. Patient was found to have UTI on urine culture and was treated with Ceftriaxone while in house. On day of discharge, patient stable for discharge home on macrobid 100mg PO Q12 x 7days. - Date & Time of H&P Date of H&P: 02/04/19 Time of H&P: 11:44 Discharge Exam - Head Exam Head Exam: ATRAUMATIC, NORMOCEPHALIC - Eye Exam Eye Exam: Normal appearance - Respiratory Exam Respiratory Exam: NORMAL BREATHING PATTERN - Cardiovascular Exam Cardiovascular Exam: REGULAR RHYTHM - GI/Abdominal Exam GI & Abdominal Exam: Soft. absent: Firm, Guarding - Neurological Exam Neurological exam: Alert, Oriented x3 - Psychiatric Exam Psychiatric exam: Normal Affect, Normal Mood - Skin Skin Exam: Dry, Intact Discharge Plan - Discharge Medications Prescriptions: Nitrofurantoin Macrocrystal [Nitrofurantoin] 100 mg PO BID #14 capsule - Follow Up Plan Condition: FAIR Disposition: HOME/ ROUTINE Instructions: Small Bowel Obstruction (DC), Exploratory Laparotomy (DC) Additional Instructions: follow up with your primary MD Dr. Meza 1 week Take all home medications and prescribed Take Abx as written Referrals: Franklyn Valencia MD [Staff Provider] -
--- NOTE | 2019-02-04 14:52 | CP.PCM.PN ---
<Katya Byrne - Last Filed: 02/04/19 15:34> Subjective - Date & Time of Evaluation Date of Evaluation: 02/04/19 Time of Evaluation: 14:52 - Subjective Subjective: General surgery progress note: Dr. Valencia 38 year old female patient seen and examined at bedside. Patient resting comfortably and in NAD. Per nursing no acute events overnight. Family present at bedside. Objective - Vital Signs/Intake and Output Vital Signs (last 24 hours): Temp Pulse Resp BP Pulse Ox 98.4 F 98 H 20 111/76 96 02/04/19 08:10 02/04/19 08:10 02/04/19 08:10 02/04/19 08:10 02/04/19 08:10 - Medications Medications: Current Medications Acetaminophen (Tylenol 650 Mg Supp) 650 mg [place] Q6 PRN PRN Reason: Pain, moderate (4-7) Chlorpromazine (Thorazine) 50 mg IM Q4 PRN PRN Reason: Agitation Last Admin: 02/02/19 00:11 Dose: 50 mg Clozapine (Clozaril) 300 mg PO Q12H [facility] Last Admin: 02/04/19 09:20 Dose: 300 mg Diphenhydramine HCl (Benadryl) 25 mg IM Q4 PRN PRN Reason: Allergy symptoms Last Admin: 02/02/19 00:11 Dose: 25 mg Docusate Sodium (Colace) 100 mg PO BID [facility] Last Admin: 02/04/19 11:36 Dose: 100 mg Enoxaparin Sodium (Lovenox) 40 mg SC DAILY D[facility]TON; Protocol Last Admin: 02/04/19 09:20 Dose: 40 mg Ceftriaxone Sodium 1 gm/ (Sodium Chloride) 100 mls @ 100 mls/hr IVPB DAILY [facility]; Protocol Last Admin: 02/04/19 09:16 Dose: 100 mls/hr Lidocaine (Lidoderm) 1 ea TD DAILY [facility] Last Admin: 02/04/19 09:19 Dose: 1 ea Mirtazapine (Remeron) 30 mg PO HS D[facility]TON Last Admin: 02/03/19 22:00 Dose: 30 mg Ondansetron HCl (Zofran Inj) 4 mg IVP Q4 PRN PRN Reason: Nausea/Vomiting Last Admin: 01/30/19 17:43 Dose: 4 mg Pantoprazole Sodium (Protonix Inj) 40 mg IVP DAILY [facility] Last Admin: 02/04/19 11:37 Dose: 40 mg - Labs Labs: 02/04/19 06:15 02/04/19 06:15 PT 21.4 Seconds (9.8-13.1) H 01/23/19 05:45 INR 1.9 01/23/19 05:45 APTT 27.7 Seconds (25.6-37.1) 01/15/19 05:20 - Constitutional Appears: Non-toxic, No Acute Distress - Head Exam Head Exam: ATRAUMATIC - Eye Exam Eye Exam: Normal appearance - ENT Exam ENT Exam: Mucous Membranes Moist - Cardiovascular Exam Cardiovascular Exam: REGULAR RHYTHM - GI/Abdominal Exam GI & Abdominal Exam: Soft. absent: Guarding, Rigid - Extremities Exam Extremities Exam: Normal Capillary Refill. absent: Calf Tenderness, Pedal Edema - Neurological Exam Neurological Exam: Alert, Awake - Psychiatric Exam Psychiatric exam: Normal Affect Assessment and Plan - Assessment and Plan (Free Text) Assessment: 38 year old female who presented with SBO s/p exlap, s/p push enteroscopy and diagnostic lap converted open with SBR/anastomosis Plan: - Patient surgically stable - Patient screened by [facility] and does not meet criteria for involuntary psy chiatric commitment. - C/w physical therapy - Regular diet - Zyprexa IM Q12H - Clozapine 300 BID - Further recs per Dr. Valencia <Franklyn Valencia - Last Filed: 02/09/19 17:27> Objective - Vital Signs/Intake and Output Vital Signs (last 24 hours): Temp Pulse Resp BP Pulse Ox 98.4 F 108 H 17 107/68 97 02/09/19 16:23 02/09/19 16:23 02/09/19 16:23 02/09/19 16:23 02/09/19 16:23 - Medications Medications: Current Medications Acetaminophen (Tylenol 650 Mg Supp) 650 mg [place] Q6 PRN PRN Reason: Pain, moderate (4-7) Benzocaine/Menthol (Cepacol Sore Throat) 1 rebecca PO Q3 PRN PRN Reason: Sore Throat Chlorpromazine (Thorazine) 50 mg IM Q4 PRN PRN Reason: Agitation Last Admin: 02/02/19 00:11 Dose: 50 mg Clozapine (Clozaril) 300 mg PO Q12H [facility] Last Admin: 02/09/19 11:08 Dose: 300 mg Diphenhydramine HCl (Benadryl) 25 mg IM Q4 PRN PRN Reason: Allergy symptoms Last Admin: 02/02/19 00:11 Dose: 25 mg Docusate Sodium (Colace Liquid) 100 mg PO BID [facility] Last Admin: 02/09/19 16:53 Dose: 100 mg Enoxaparin Sodium (Lovenox) 40 mg SC DAILY D[facility]; Protocol Last Admin: 02/09/19 09:15 Dose: 40 mg Ceftriaxone Sodium 1 gm/ (Sodium Chloride) 100 mls @ 100 mls/hr IVPB DAILY [facility]; Protocol Last Admin: 02/09/19 09:16 Dose: 100 mls/hr Vancomycin HCl 1 gm/ Sodium (Chloride) 250 mls @ 166.667 mls/hr IVPB DAILY [facility]; Protocol Last Admin: 02/09/19 10:58 Dose: 166.667 mls/hr Lidocaine (Lidoderm) 1 ea TD DAILY D[facility] Last Admin: 02/09/19 09:15 Dose: 1 ea Mirtazapine (Remeron) 30 mg PO HS D[facility]TON Last Admin: 02/08/19 21:36 Dose: 30 mg Ondansetron HCl (Zofran Inj) 4 mg IVP Q4 PRN PRN Reason: Nausea/Vomiting Last Admin: 01/30/19 17:43 Dose: 4 mg Pantoprazole Sodium (Protonix Inj) 40 mg IVP DAILY [facility] Last Admin: 02/09/19 09:16 Dose: 40 mg - Labs Labs: 02/07/19 05:30 02/07/19 05:30 PT 21.4 Seconds (9.8-13.1) H 01/23/19 05:45 INR 1.9 01/23/19 05:45 APTT 27.7 Seconds (25.6-37.1) 01/15/19 05:20 Assessment and Plan - Assessment and Plan (Free Text) Plan: All medical record entries made by the resident were at my direction. I have reviewed the chart and agree that the record accurately reflects my personal performance of the history, physical exam, and medical decision making.
[2019-02-05 07:44] LABS: BLOOD UREA NITROGEN 9 mg/dl (7-17); CALCIUM 9.2 mg/dL (8.4-10.2); GFR NON-AFRICAN AMERICAN > 60
--- NOTE | 2019-02-05 08:09 | CP.PCM.PN ---
<Katya Byrne - Last Filed: 02/05/19 08:39> Subjective - Date & Time of Evaluation Date of Evaluation: 02/05/19 Time of Evaluation: 08:08 - Subjective Subjective: General surgery progress note: Dr. Valencia Patient seen and examined this morning, resting comfortably and in NAD. Per chart, no acute events overnight. Patient admits + flatus, + BM. Denies vomiting/fever/chills, admits to nausea. Objective - Vital Signs/Intake and Output Vital Signs (last 24 hours): Temp Pulse Resp BP Pulse Ox 97.6 F 104 H 18 114/75 95 02/04/19 23:22 02/04/19 23:22 02/04/19 23:22 02/04/19 23:22 02/04/19 23:22 - Medications Medications: Current Medications Acetaminophen (Tylenol 650 Mg Supp) 650 mg [place] Q6 PRN PRN Reason: Pain, moderate (4-7) Chlorpromazine (Thorazine) 50 mg IM Q4 PRN PRN Reason: Agitation Last Admin: 02/02/19 00:11 Dose: 50 mg Clozapine (Clozaril) 300 mg PO Q12H [place] Last Admin: 02/04/19 21:08 Dose: 300 mg Diphenhydramine HCl (Benadryl) 25 mg IM Q4 PRN PRN Reason: Allergy symptoms Last Admin: 02/02/19 00:11 Dose: 25 mg Docusate Sodium (Colace) 100 mg PO BID D[place] Last Admin: 02/04/19 19:37 Dose: Not Given Enoxaparin Sodium (Lovenox) 40 mg SC DAILY D[place]; Protocol Last Admin: 02/04/19 09:20 Dose: 40 mg Ceftriaxone Sodium 1 gm/ (Sodium Chloride) 100 mls @ 100 mls/hr IVPB DAILY [facility]; Protocol Last Admin: 02/04/19 09:16 Dose: 100 mls/hr Lidocaine (Lidoderm) 1 ea TD DAILY [facility] Last Admin: 02/04/19 09:19 Dose: 1 ea Mirtazapine (Remeron) 30 mg PO HS [facility] Last Admin: 02/04/19 21:08 Dose: 30 mg Ondansetron HCl (Zofran Inj) 4 mg IVP Q4 PRN PRN Reason: Nausea/Vomiting Last Admin: 01/30/19 17:43 Dose: 4 mg Pantoprazole Sodium (Protonix Inj) 40 mg IVP DAILY [facility] Last Admin: 02/04/19 11:37 Dose: 40 mg - Labs Labs: 02/04/19 06:15 02/05/19 07:20 PT 21.4 Seconds (9.8-13.1) H 01/23/19 05:45 INR 1.9 01/23/19 05:45 APTT 27.7 Seconds (25.6-37.1) 01/15/19 05:20 - Constitutional Appears: Non-toxic, No Acute Distress - Head Exam Head Exam: NORMOCEPHALIC - Eye Exam Eye Exam: Normal appearance - Respiratory Exam Respiratory Exam: NORMAL BREATHING PATTERN - Cardiovascular Exam Cardiovascular Exam: REGULAR RHYTHM - GI/Abdominal Exam GI & Abdominal Exam: Soft. absent: Tenderness - Extremities Exam Extremities Exam: absent: Calf Tenderness - Back Exam Back Exam: absent: CVA tenderness (L), CVA tenderness (R) - Neurological Exam Neurological Exam: Alert, Awake - Psychiatric Exam Psychiatric exam: Normal Affect, Normal Mood Assessment and Plan - Assessment and Plan (Free Text) Assessment: 38 year old female who presented with SBO s/p exlap, s/p push enteroscopy and diagnostic lap converted open with SBR/anastomosis Plan: - Patient surgically stable - Patient screened by [facility] and does not meet criteria for involuntary ps ychiatric commitment. - C/w physical therapy, recommendations appreciated - Regular diet - Clozapine 300 BID - Further recs per Dr. Valencia <Franklyn Valencia - Last Filed: 02/09/19 17:25> Objective - Vital Signs/Intake and Output Vital Signs (last 24 hours): Temp Pulse Resp BP Pulse Ox 98.4 F 108 H 17 107/68 97 02/09/19 16:23 02/09/19 16:23 02/09/19 16:23 02/09/19 16:23 02/09/19 16:23 - Medications Medications: Current Medications Acetaminophen (Tylenol 650 Mg Supp) 650 mg ND Q6 PRN PRN Reason: Pain, moderate (4-7) Benzocaine/Menthol (Cepacol Sore Throat) 1 rebecca PO Q3 PRN PRN Reason: Sore Throat Chlorpromazine (Thorazine) 50 mg IM Q4 PRN PRN Reason: Agitation Last Admin: 02/02/19 00:11 Dose: 50 mg Clozapine (Clozaril) 300 mg PO Q12H [facility] Last Admin: 02/09/19 11:08 Dose: 300 mg Diphenhydramine HCl (Benadryl) 25 mg IM Q4 PRN PRN Reason: Allergy symptoms Last Admin: 02/02/19 00:11 Dose: 25 mg Docusate Sodium (Colace Liquid) 100 mg PO BID D[place]TON Last Admin: 02/09/19 16:53 Dose: 100 mg Enoxaparin Sodium (Lovenox) 40 mg SC DAILY D[place]; Protocol Last Admin: 02/09/19 09:15 Dose: 40 mg Ceftriaxone Sodium 1 gm/ (Sodium Chloride) 100 mls @ 100 mls/hr IVPB DAILY [facility]; Protocol Last Admin: 02/09/19 09:16 Dose: 100 mls/hr Vancomycin HCl 1 gm/ Sodium (Chloride) 250 mls @ 166.667 mls/hr IVPB DAILY D[facility]; Protocol Last Admin: 02/09/19 10:58 Dose: 166.667 mls/hr Lidocaine (Lidoderm) 1 ea TD DAILY D[facility]TON Last Admin: 02/09/19 09:15 Dose: 1 ea Mirtazapine (Remeron) 30 mg PO HS D[place]TON Last Admin: 02/08/19 21:36 Dose: 30 mg Ondansetron HCl (Zofran Inj) 4 mg IVP Q4 PRN PRN Reason: Nausea/Vomiting Last Admin: 01/30/19 17:43 Dose: 4 mg Pantoprazole Sodium (Protonix Inj) 40 mg IVP DAILY D[place]TON Last Admin: 02/09/19 09:16 Dose: 40 mg - Labs Labs: 02/07/19 05:30 02/07/19 05:30 PT 21.4 Seconds (9.8-13.1) H 01/23/19 05:45 INR 1.9 01/23/19 05:45 APTT 27.7 Seconds (25.6-37.1) 01/15/19 05:20 Assessment and Plan - Assessment and Plan (Free Text) Plan: All medical record entries made by the resident were at my direction. I have reviewed the chart and agree that the record accurately reflects my personal performance of the history, physical exam, and medical decision making.
[2019-02-05] MEDS: Lidocaine 5% Patch TD SCH (09:32)
[2019-02-05] MEDS: Enoxaparin 40 mg Syringe SC SCH (09:33)
--- NOTE | 2019-02-06 08:55 | CP.PCM.PN ---
<Katya Byrne - Last Filed: 02/06/19 10:08> Subjective - Date & Time of Evaluation Date of Evaluation: 02/06/19 Time of Evaluation: 08:55 - Subjective Subjective: General surgery progress note: Dr. Valencia 38 year old female patient seen and examined this am. Patient AAOx3 and resting comfortably. Patient tolerating regular diet. Endorses + BM, + flatus. Denies nausea/vomiting/fever/shortness of breath. Objective - Vital Signs/Intake and Output Vital Signs (last 24 hours): Temp Pulse Resp BP Pulse Ox 98.3 F 102 H 20 111/77 96 02/06/19 08:42 02/06/19 08:42 02/06/19 08:42 02/06/19 08:42 02/06/19 08:42 - Medications Medications: Current Medications Acetaminophen (Tylenol 650 Mg Supp) 650 mg MS Q6 PRN PRN Reason: Pain, moderate (4-7) Chlorpromazine (Thorazine) 50 mg IM Q4 PRN PRN Reason: Agitation Last Admin: 02/02/19 00:11 Dose: 50 mg Clozapine (Clozaril) 300 mg PO Q12H [facility] Last Admin: 02/05/19 21:21 Dose: 300 mg Diphenhydramine HCl (Benadryl) 25 mg IM Q4 PRN PRN Reason: Allergy symptoms Last Admin: 02/02/19 00:11 Dose: 25 mg Docusate Sodium (Colace) 100 mg PO BID [facility] Last Admin: 02/05/19 16:39 Dose: 100 mg Enoxaparin Sodium (Lovenox) 40 mg SC DAILY [facility]; Protocol Last Admin: 02/05/19 09:33 Dose: 40 mg Ceftriaxone Sodium 1 gm/ (Sodium Chloride) 100 mls @ 100 mls/hr IVPB DAILY [facility]; Protocol Last Admin: 02/05/19 09:36 Dose: 100 mls/hr Vancomycin HCl 1 gm/ Sodium (Chloride) 250 mls @ 166.667 mls/hr IVPB DAILY [facility]; Protocol Last Admin: 02/05/19 16:41 Dose: 166.667 mls/hr Lidocaine (Lidoderm) 1 ea TD DAILY [facility] Last Admin: 02/05/19 09:32 Dose: 1 ea Mirtazapine (Remeron) 30 mg PO HS [facility] Last Admin: 02/05/19 21:21 Dose: 30 mg Ondansetron HCl (Zofran Inj) 4 mg IVP Q4 PRN PRN Reason: Nausea/Vomiting Last Admin: 01/30/19 17:43 Dose: 4 mg Pantoprazole Sodium (Protonix Inj) 40 mg IVP DAILY [facility] Last Admin: 02/05/19 09:34 Dose: 40 mg - Labs Labs: 02/04/19 06:15 02/05/19 07:20 PT 21.4 Seconds (9.8-13.1) H 01/23/19 05:45 INR 1.9 01/23/19 05:45 APTT 27.7 Seconds (25.6-37.1) 01/15/19 05:20 Assessment and Plan - Assessment and Plan (Free Text) Assessment: 38 year old female who presented with SBO s/p exlap, s/p push enteroscopy and diagnostic lap converted open with SBR/anastomosis Plan: - Patient surgically stable - Patient screened by [facility] [place] and does not meet criteria for involuntary psychiat agatha commitment. - C/w physical therapy, recommendations appreciated - C/w abx, plan for d/c on Macrobid for 7 days for appropriate coverage of UTI - Discharge planning, [facility] placement vs home with PT - Regular diet - Clozapine 300 BID - Further recs per Dr. Erik Byrne, PGY1 <Franklyn Valencia - Last Filed: 02/09/19 17:22> Objective - Vital Signs/Intake and Output Vital Signs (last 24 hours): Temp Pulse Resp BP Pulse Ox 98.4 F 108 H 17 107/68 97 02/09/19 16:23 02/09/19 16:23 02/09/19 16:23 02/09/19 16:23 02/09/19 16:23 - Medications Medications: Current Medications Acetaminophen (Tylenol 650 Mg Supp) 650 mg MS Q6 PRN PRN Reason: Pain, moderate (4-7) Benzocaine/Menthol (Cepacol Sore Throat) 1 rebecca PO Q3 PRN PRN Reason: Sore Throat Chlorpromazine (Thorazine) 50 mg IM Q4 PRN PRN Reason: Agitation Last Admin: 02/02/19 00:11 Dose: 50 mg Clozapine (Clozaril) 300 mg PO Q12H [facility] Last Admin: 02/09/19 11:08 Dose: 300 mg Diphenhydramine HCl (Benadryl) 25 mg IM Q4 PRN PRN Reason: Allergy symptoms Last Admin: 02/02/19 00:11 Dose: 25 mg Docusate Sodium (Colace Liquid) 100 mg PO BID [facility] Last Admin: 02/09/19 16:53 Dose: 100 mg Enoxaparin Sodium (Lovenox) 40 mg SC DAILY [facility]; Protocol Last Admin: 02/09/19 09:15 Dose: 40 mg Ceftriaxone Sodium 1 gm/ (Sodium Chloride) 100 mls @ 100 mls/hr IVPB DAILY [facility]; Protocol Last Admin: 02/09/19 09:16 Dose: 100 mls/hr Vancomycin HCl 1 gm/ Sodium (Chloride) 250 mls @ 166.667 mls/hr IVPB DAILY [facility]; Protocol Last Admin: 02/09/19 10:58 Dose: 166.667 mls/hr Lidocaine (Lidoderm) 1 ea TD DAILY [facility] Last Admin: 02/09/19 09:15 Dose: 1 ea Mirtazapine (Remeron) 30 mg PO HS [facility] Last Admin: 02/08/19 21:36 Dose: 30 mg Ondansetron HCl (Zofran Inj) 4 mg IVP Q4 PRN PRN Reason: Nausea/Vomiting Last Admin: 01/30/19 17:43 Dose: 4 mg Pantoprazole Sodium (Protonix Inj) 40 mg IVP DAILY [facility] Last Admin: 02/09/19 09:16 Dose: 40 mg - Labs Labs: 02/07/19 05:30 02/07/19 05:30 PT 21.4 Seconds (9.8-13.1) H 01/23/19 05:45 INR 1.9 01/23/19 05:45 APTT 27.7 Seconds (25.6-37.1) 01/15/19 05:20 Assessment and Plan - Assessment and Plan (Free Text) Plan: All medical record entries made by the resident were at my direction. I have reviewed the chart and agree that the record accurately reflects my personal performance of the history, physical exam, and medical decision making.
[2019-02-06] MEDS: Lidocaine 5% Patch TD SCH (09:30)
[2019-02-06] MEDS: Enoxaparin 40 mg Syringe SC SCH (09:32)
[2019-02-06] MEDS ORDERED: Benzocaine/Menthol (Cepacol) Lozenge PO PRN (22:33)
[2019-02-06] MEDS ORDERED: Benzocaine/Menthol (Cepacol) Lozenge PO STA (22:33)
--- NOTE | 2019-02-07 04:23 | CP.PCM.PN ---
<Tito Giron - Last Filed: 02/07/19 04:21> Subjective - Date & Time of Evaluation Date of Evaluation: 02/07/19 Time of Evaluation: 04:21 - Subjective Subjective: SURGERY NOTE FOR DR. MUNIZ 38F seen and examined at bedside. Patient doing well, currently denies any abdominal pain, denies current nausea/vomiting. Had one episode of emesis yesterday night. Continues to pass gas and have bowel movements. Objective - Vital Signs/Intake and Output Vital Signs (last 24 hours): Temp Pulse Resp BP Pulse Ox 97.9 F 108 H 18 113/78 95 02/07/19 00:09 02/07/19 00:09 02/07/19 00:09 02/07/19 00:09 02/07/19 00:09 - Medications Medications: Current Medications Acetaminophen (Tylenol 650 Mg Supp) 650 mg AR Q6 PRN PRN Reason: Pain, moderate (4-7) Benzocaine/Menthol (Cepacol Sore Throat) 1 rebecca PO Q3 PRN PRN Reason: Sore Throat Chlorpromazine (Thorazine) 50 mg IM Q4 PRN PRN Reason: Agitation Last Admin: 02/02/19 00:11 Dose: 50 mg Clozapine (Clozaril) 300 mg PO Q12H [facility] Last Admin: 02/06/19 21:35 Dose: 300 mg Diphenhydramine HCl (Benadryl) 25 mg IM Q4 PRN PRN Reason: Allergy symptoms Last Admin: 02/02/19 00:11 Dose: 25 mg Docusate Sodium (Colace) 100 mg PO BID [facility] Last Admin: 02/06/19 16:46 Dose: 100 mg Enoxaparin Sodium (Lovenox) 40 mg SC DAILY [facility]; Protocol Last Admin: 02/06/19 09:32 Dose: 40 mg Ceftriaxone Sodium 1 gm/ (Sodium Chloride) 100 mls @ 100 mls/hr IVPB DAILY [facility]; Protocol Last Admin: 02/06/19 11:23 Dose: 100 mls/hr Vancomycin HCl 1 gm/ Sodium (Chloride) 250 mls @ 166.667 mls/hr IVPB DAILY [facility]; Protocol Last Admin: 02/06/19 09:22 Dose: 166.667 mls/hr Lidocaine (Lidoderm) 1 ea TD DAILY [facility] Last Admin: 02/06/19 09:30 Dose: 1 ea Mirtazapine (Remeron) 30 mg PO HS [facility] Last Admin: 02/06/19 21:36 Dose: 30 mg Ondansetron HCl (Zofran Inj) 4 mg IVP Q4 PRN PRN Reason: Nausea/Vomiting Last Admin: 01/30/19 17:43 Dose: 4 mg Pantoprazole Sodium (Protonix Inj) 40 mg IVP DAILY [facility] - Labs Labs: 02/04/19 06:15 02/05/19 07:20 PT 21.4 Seconds (9.8-13.1) H 01/23/19 05:45 INR 1.9 01/23/19 05:45 APTT 27.7 Seconds (25.6-37.1) 01/15/19 05:20 - Constitutional Appears: Non-toxic, No Acute Distress - Respiratory Exam Respiratory Exam: Clear to Ausculation Bilateral, NORMAL BREATHING PATTERN - Cardiovascular Exam Cardiovascular Exam: REGULAR RHYTHM, +S1, +S2 - GI/Abdominal Exam GI & Abdominal Exam: Soft. absent: Distended, Firm, Guarding, Rigid, Tenderness, Rebound - Extremities Exam Extremities Exam: absent: Pedal Edema, Tenderness - Neurological Exam Neurological Exam: Alert, Awake - Skin Skin Exam: Dry, Intact, Normal Color, Warm Assessment and Plan - Assessment and Plan (Free Text) Assessment: 38 year old female who presented with SBO s/p exlap, s/p push enteroscopy and diagnostic lap converted open with SBR/anastomosis Plan: - Patient surgically stable - [place] [facility] [place] does not meet criteria for involuntary psychiatric commitment. - C/w physical therapy, recommendations appreciated - C/w abx, plan for d/c on Macrobid for 7 days for appropriate coverage of UTI - Discharge planning, [facility] placement vs home with PT - Further recs per Dr. Erik Giron, PGY3 <Franklyn Muniz - Last Filed: 02/09/19 17:12> Objective - Vital Signs/Intake and Output Vital Signs (last 24 hours): Temp Pulse Resp BP Pulse Ox 98.4 F 108 H 17 107/68 97 02/09/19 16:23 02/09/19 16:23 02/09/19 16:23 02/09/19 16:23 02/09/19 16:23 - Medications Medications: Current Medications Acetaminophen (Tylenol 650 Mg Supp) 650 mg AR Q6 PRN PRN Reason: Pain, moderate (4-7) Benzocaine/Menthol (Cepacol Sore Throat) 1 rebecca PO Q3 PRN PRN Reason: Sore Throat Chlorpromazine (Thorazine) 50 mg IM Q4 PRN PRN Reason: Agitation Last Admin: 02/02/19 00:11 Dose: 50 mg Clozapine (Clozaril) 300 mg PO Q12H [facility] Last Admin: 02/09/19 11:08 Dose: 300 mg Diphenhydramine HCl (Benadryl) 25 mg IM Q4 PRN PRN Reason: Allergy symptoms Last Admin: 02/02/19 00:11 Dose: 25 mg Docusate Sodium (Colace Liquid) 100 mg PO BID [facility] Last Admin: 02/09/19 16:53 Dose: 100 mg Enoxaparin Sodium (Lovenox) 40 mg SC DAILY [facility]; Protocol Last Admin: 02/09/19 09:15 Dose: 40 mg Ceftriaxone Sodium 1 gm/ (Sodium Chloride) 100 mls @ 100 mls/hr IVPB DAILY [facility]; Protocol Last Admin: 02/09/19 09:16 Dose: 100 mls/hr Vancomycin HCl 1 gm/ Sodium (Chloride) 250 mls @ 166.667 mls/hr IVPB DAILY [facility]; Protocol Last Admin: 02/09/19 10:58 Dose: 166.667 mls/hr Lidocaine (Lidoderm) 1 ea TD DAILY [facility] Last Admin: 02/09/19 09:15 Dose: 1 ea Mirtazapine (Remeron) 30 mg PO HS [facility] Last Admin: 02/08/19 21:36 Dose: 30 mg Ondansetron HCl (Zofran Inj) 4 mg IVP Q4 PRN PRN Reason: Nausea/Vomiting Last Admin: 01/30/19 17:43 Dose: 4 mg Pantoprazole Sodium (Protonix Inj) 40 mg IVP DAILY [facility] Last Admin: 02/09/19 09:16 Dose: 40 mg - Labs Labs: 02/07/19 05:30 02/07/19 05:30 PT 21.4 Seconds (9.8-13.1) H 01/23/19 05:45 INR 1.9 01/23/19 05:45 APTT 27.7 Seconds (25.6-37.1) 01/15/19 05:20 Assessment and Plan - Assessment and Plan (Free Text) Plan: All medical record entries made by the resident were at my direction. I have reviewed the chart and agree that the record accurately reflects my personal performance of the history, physical exam, and medical decision making.
[2019-02-07] MEDS: Lidocaine 5% Patch TD SCH (08:47)
[2019-02-07] MEDS: Enoxaparin 40 mg Syringe SC SCH (08:48)
[2019-02-07 11:34] LABS: SQUAMOUS EPITHIAL 37 /hpf (0-5); URINE BACTERIA FEW (<OCC); URINE BILIRUBIN NEGATIVE (NEGATIVE); URINE BLOOD NEGATIVE (NEGATIVE); URINE CLARITY CLOUDY (Clear); URINE COLOR AMBER (YELLOW); URINE GLUCOSE (UA) NEG (NEGATIVE); URINE LEUKOCYTE ESTERASE MOD Leu/uL (Negative); URINE PROTEIN 30 mg/dL (NEGATIVE); URINE UROBILINOGEN 0.2-1.0 mg/dL (0.2-1.0)
[2019-02-08] MEDS: Lactated Ringer's 500 ML IV SCH ×4 (01:56→02:59)
[2019-02-08 07:25] LABS: BASO % 0.5 % (0.0-2.0); EOS # 0.4 K/uL (0.0-0.7); EOS % 5.4 % (0.0-4.0); HEMOGLOBIN 11.1 g/dL (12.0-16.0); LYMPH % 14.3 % (20.0-40.0); MEAN CELL VOLUME 89.9 fl (81.0-99.0); MEAN CORPUSCULAR HEMOGLOBIN 30.4 pg (27.0-31.0); MEAN CORPUSCULAR HGB CONC 33.9 g/dL (33.0-37.0); MEAN PLATELET VOLUME 8.9 fl (7.2-11.7); MONO # 0.5 K/uL (0.0-0.8); MONO % 6.6 % (0.0-10.0); NEUT % 73.2 % (50.0-75.0); RBC 3.66 Mil/uL (3.80-5.20); RED CELL DISTRIBUTION WIDTH 13.6 % (11.5-14.5); WHITE BLOOD COUNT 6.9 K/uL (4.8-10.8)
[2019-02-08 07:32] LABS: ALB/GLOB RATIO 1.2 (1.0-2.1); ALT/SGPT 34 U/L (9-52); AST/SGOT 20 U/L (14-36); BLOOD UREA NITROGEN 5 mg/dl (7-17); CALCIUM 8.7 mg/dL (8.4-10.2); GFR NON-AFRICAN AMERICAN > 60
[2019-02-08] MEDS: Lidocaine 5% Patch TD SCH (09:33)
[2019-02-08] MEDS: Enoxaparin 40 mg Syringe SC SCH (09:33)
--- NOTE | 2019-02-08 13:00 | CP.PCM.PN ---
<Milton Zamudio - Last Filed: 02/08/19 13:14> Subjective - Date & Time of Evaluation Date of Evaluation: 02/08/19 Time of Evaluation: 11:00 - Subjective Subjective: SURGERY NOTE FOR DR. MUNIZ 38F seen and examined at bedside. Patient doing well. Reports mild suprapubic pain. Denies nausea/vomiting. Continues to pass gas and have bowel movements. Objective - Vital Signs/Intake and Output Vital Signs (last 24 hours): Temp Pulse Resp BP Pulse Ox 98.3 F 110 H 20 112/76 95 02/08/19 08:56 02/08/19 08:56 02/08/19 08:56 02/08/19 08:56 02/08/19 08:56 - Medications Medications: Current Medications Acetaminophen (Tylenol 650 Mg Supp) 650 mg ND Q6 PRN PRN Reason: Pain, moderate (4-7) Benzocaine/Menthol (Cepacol Sore Throat) 1 rebecca PO Q3 PRN PRN Reason: Sore Throat Chlorpromazine (Thorazine) 50 mg IM Q4 PRN PRN Reason: Agitation Last Admin: 02/02/19 00:11 Dose: 50 mg Clozapine (Clozaril) 300 mg PO Q12H [facility] Last Admin: 02/08/19 09:34 Dose: 300 mg Diphenhydramine HCl (Benadryl) 25 mg IM Q4 PRN PRN Reason: Allergy symptoms Last Admin: 02/02/19 00:11 Dose: 25 mg Docusate Sodium (Colace Liquid) 100 mg PO BID [facility] Last Admin: 02/08/19 09:34 Dose: 100 mg Enoxaparin Sodium (Lovenox) 40 mg SC DAILY [facility]; Protocol Last Admin: 02/08/19 09:33 Dose: 40 mg Ceftriaxone Sodium 1 gm/ (Sodium Chloride) 100 mls @ 100 mls/hr IVPB DAILY [facility]; Protocol Last Admin: 02/08/19 09:31 Dose: 100 mls/hr Vancomycin HCl 1 gm/ Sodium (Chloride) 250 mls @ 166.667 mls/hr IVPB DAILY [facility]; Protocol Last Admin: 02/08/19 09:32 Dose: 166.667 mls/hr Lidocaine (Lidoderm) 1 ea TD DAILY [facility] Last Admin: 02/08/19 09:33 Dose: 1 ea Mirtazapine (Remeron) 30 mg PO HS [facility] Last Admin: 02/07/19 21:38 Dose: 30 mg Ondansetron HCl (Zofran Inj) 4 mg IVP Q4 PRN PRN Reason: Nausea/Vomiting Last Admin: 01/30/19 17:43 Dose: 4 mg Pantoprazole Sodium (Protonix Inj) 40 mg IVP DAILY [facility] Last Admin: 02/08/19 09:33 Dose: 40 mg - Labs Labs: 02/07/19 05:30 02/07/19 05:30 PT 21.4 Seconds (9.8-13.1) H 01/23/19 05:45 INR 1.9 01/23/19 05:45 APTT 27.7 Seconds (25.6-37.1) 01/15/19 05:20 - Additional Findings Additional findings: - Constitutional Appears: Non-toxic, No Acute Distress - Respiratory Exam Respiratory Exam: Clear to Ausculation Bilateral, NORMAL BREATHING PATTERN - Cardiovascular Exam Cardiovascular Exam: REGULAR RHYTHM, +S1, +S2 - GI/Abdominal Exam GI & Abdominal Exam: Soft. absent: Distended, Firm, Guarding, Rigid, Tenderness, Rebound - Extremities Exam Extremities Exam: absent: Pedal Edema, Tenderness - Neurological Exam Neurological Exam: Alert, Awake - Skin Skin Exam: Dry, Intact, Normal Color, Warm Assessment and Plan - Assessment and Plan (Free Text) Assessment: 38 year old female who presented with SBO s/p exlap, s/p push enteroscopy and diagnostic lap converted open with SBR/anastomosis - Patient surgically stable - Patient screened by [facility] [place] and does not meet criteria for involuntary psychiatric commitment. - C/w physical therapy, recommendations appreciated - Patient still symptomatic for UTI, started on antifungal due to presence of yeast - C/w abx, plan for d/c on appropriate coverage of UTI - Discharge planning, [facility] placement vs home with PT - Further recs per Dr. Erik Zamudio PGY2 <Franklyn Muniz - Last Filed: 02/09/19 17:10> Objective - Vital Signs/Intake and Output Vital Signs (last 24 hours): Temp Pulse Resp BP Pulse Ox 98.4 F 108 H 17 107/68 97 02/09/19 16:23 02/09/19 16:23 02/09/19 16:23 02/09/19 16:23 02/09/19 16:23 - Medications Medications: Current Medications Acetaminophen (Tylenol 650 Mg Supp) 650 mg ND Q6 PRN PRN Reason: Pain, moderate (4-7) Benzocaine/Menthol (Cepacol Sore Throat) 1 rebecca PO Q3 PRN PRN Reason: Sore Throat Chlorpromazine (Thorazine) 50 mg IM Q4 PRN PRN Reason: Agitation Last Admin: 02/02/19 00:11 Dose: 50 mg Clozapine (Clozaril) 300 mg PO Q12H [facility] Last Admin: 02/09/19 11:08 Dose: 300 mg Diphenhydramine HCl (Benadryl) 25 mg IM Q4 PRN PRN Reason: Allergy symptoms Last Admin: 02/02/19 00:11 Dose: 25 mg Docusate Sodium (Colace Liquid) 100 mg PO BID [facility] Last Admin: 02/09/19 16:53 Dose: 100 mg Enoxaparin Sodium (Lovenox) 40 mg SC DAILY [facility]; Protocol Last Admin: 02/09/19 09:15 Dose: 40 mg Ceftriaxone Sodium 1 gm/ (Sodium Chloride) 100 mls @ 100 mls/hr IVPB DAILY [facility]; Protocol Last Admin: 02/09/19 09:16 Dose: 100 mls/hr Vancomycin HCl 1 gm/ Sodium (Chloride) 250 mls @ 166.667 mls/hr IVPB DAILY [facility]; Protocol Last Admin: 02/09/19 10:58 Dose: 166.667 mls/hr Lidocaine (Lidoderm) 1 ea TD DAILY [facility] Last Admin: 02/09/19 09:15 Dose: 1 ea Mirtazapine (Remeron) 30 mg PO HS [facility] Last Admin: 02/08/19 21:36 Dose: 30 mg Ondansetron HCl (Zofran Inj) 4 mg IVP Q4 PRN PRN Reason: Nausea/Vomiting Last Admin: 01/30/19 17:43 Dose: 4 mg Pantoprazole Sodium (Protonix Inj) 40 mg IVP DAILY [facility] Last Admin: 02/09/19 09:16 Dose: 40 mg - Labs Labs: 02/07/19 05:30 02/07/19 05:30 PT 21.4 Seconds (9.8-13.1) H 01/23/19 05:45 INR 1.9 01/23/19 05:45 APTT 27.7 Seconds (25.6-37.1) 01/15/19 05:20 Assessment and Plan - Assessment and Plan (Free Text) Assessment: All medical record entries made by the resident were at my direction. I have reviewed the chart and agree that the record accurately reflects my personal performance of the history, physical exam, and medical decision making.
[2019-02-09] MEDS: Enoxaparin 40 mg Syringe SC SCH (09:15)
[2019-02-09] MEDS: Lidocaine 5% Patch TD SCH (09:15)
--- NOTE | 2019-02-09 09:17 | CP.PCM.PN ---
<Marvin Mark - Last Filed: 02/09/19 09:13> Subjective - Date & Time of Evaluation Date of Evaluation: 02/09/19 Time of Evaluation: 09:13 - Subjective Subjective: Surgery Progress note- Dr. Tinoco Patient seen and examined. No acute complaints. Tolerating regular diet. + OOB and ambulating. Showered this AM. In good spirits at this time. Plan for [facility] vs Home pending repeat PT eval Objective - Vital Signs/Intake and Output Vital Signs (last 24 hours): Temp Pulse Resp BP Pulse Ox 98.1 F 111 H 18 105/71 98 02/09/19 08:45 02/09/19 08:45 02/09/19 08:45 02/09/19 08:45 02/09/19 08:45 - Medications Medications: Current Medications Acetaminophen (Tylenol 650 Mg Supp) 650 mg [place] Q6 PRN PRN Reason: Pain, moderate (4-7) Benzocaine/Menthol (Cepacol Sore Throat) 1 rebecca PO Q3 PRN PRN Reason: Sore Throat Chlorpromazine (Thorazine) 50 mg IM Q4 PRN PRN Reason: Agitation Last Admin: 02/02/19 00:11 Dose: 50 mg Clozapine (Clozaril) 300 mg PO Q12H [facility] Last Admin: 02/08/19 21:35 Dose: 300 mg Diphenhydramine HCl (Benadryl) 25 mg IM Q4 PRN PRN Reason: Allergy symptoms Last Admin: 02/02/19 00:11 Dose: 25 mg Docusate Sodium (Colace Liquid) 100 mg PO BID [facility] Last Admin: 02/08/19 16:21 Dose: 100 mg Enoxaparin Sodium (Lovenox) 40 mg SC DAILY [facility]; Protocol Last Admin: 02/08/19 09:33 Dose: 40 mg Ceftriaxone Sodium 1 gm/ (Sodium Chloride) 100 mls @ 100 mls/hr IVPB DAILY [facility]; Protocol Last Admin: 02/08/19 09:31 Dose: 100 mls/hr Vancomycin HCl 1 gm/ Sodium (Chloride) 250 mls @ 166.667 mls/hr IVPB DAILY [facility]; Protocol Last Admin: 02/08/19 09:32 Dose: 166.667 mls/hr Lidocaine (Lidoderm) 1 ea TD DAILY [facility] Last Admin: 02/08/19 09:33 Dose: 1 ea Mirtazapine (Remeron) 30 mg PO HS [facility] Last Admin: 02/08/19 21:36 Dose: 30 mg Ondansetron HCl (Zofran Inj) 4 mg IVP Q4 PRN PRN Reason: Nausea/Vomiting Last Admin: 01/30/19 17:43 Dose: 4 mg Pantoprazole Sodium (Protonix Inj) 40 mg IVP DAILY [facility] Last Admin: 02/08/19 09:33 Dose: 40 mg - Labs Labs: 02/07/19 05:30 02/07/19 05:30 PT 21.4 Seconds (9.8-13.1) H 01/23/19 05:45 INR 1.9 01/23/19 05:45 APTT 27.7 Seconds (25.6-37.1) 01/15/19 05:20 - Constitutional Appears: Non-toxic, No Acute Distress - Head Exam Head Exam: ATRAUMATIC - Eye Exam Eye Exam: EOMI. absent: Scleral icterus - ENT Exam ENT Exam: Mucous Membranes Moist - Respiratory Exam Respiratory Exam: Clear to Ausculation Bilateral. absent: Accessory Muscle Use, Chest Wall Tenderness - Cardiovascular Exam Cardiovascular Exam: REGULAR RHYTHM. absent: Bradycardia, Tachycardia - GI/Abdominal Exam GI & Abdominal Exam: Soft. absent: Distended, Firm, Guarding, Rigid, Tenderness Additional comments: incision healing well - Neurological Exam Neurological Exam: Alert, Awake, Oriented x3 - Psychiatric Exam Psychiatric exam: Normal Affect - Skin Skin Exam: Intact, Warm Assessment and Plan - Assessment and Plan (Free Text) Assessment: 38 year old female who presented with SBO s/p exlap, s/p push enteroscopy and diagnostic lap converted open with SBR/anastomosis Plan: - Patient surgically stable - Patient screened by [facility] [place] and does not meet criteria for involuntary psychiatric commitment. - C/w physical therapy, recommendations appreciated - Patient still symptomatic for UTI, started on antifungal due to presence of yeast - C/w abx, plan for d/c on appropriate coverage of UTI - Discharge planning, [facility] placement vs home with PT - Further recs per Dr. Erik Mark PGY2 <Franklyn Valencia - Last Filed: 02/09/19 17:05> Objective - Vital Signs/Intake and Output Vital Signs (last 24 hours): Temp Pulse Resp BP Pulse Ox 98.4 F 108 H 17 107/68 97 02/09/19 16:23 02/09/19 16:23 02/09/19 16:23 02/09/19 16:23 02/09/19 16:23 - Medications Medications: Current Medications Acetaminophen (Tylenol 650 Mg Supp) 650 mg [place] Q6 PRN PRN Reason: Pain, moderate (4-7) Benzocaine/Menthol (Cepacol Sore Throat) 1 rebecca PO Q3 PRN PRN Reason: Sore Throat Chlorpromazine (Thorazine) 50 mg IM Q4 PRN PRN Reason: Agitation Last Admin: 02/02/19 00:11 Dose: 50 mg Clozapine (Clozaril) 300 mg PO Q12H [facility] Last Admin: 02/09/19 11:08 Dose: 300 mg Diphenhydramine HCl (Benadryl) 25 mg IM Q4 PRN PRN Reason: Allergy symptoms Last Admin: 02/02/19 00:11 Dose: 25 mg Docusate Sodium (Colace Liquid) 100 mg PO BID [facility] Last Admin: 02/09/19 16:53 Dose: 100 mg Enoxaparin Sodium (Lovenox) 40 mg SC DAILY [facility]; Protocol Last Admin: 02/09/19 09:15 Dose: 40 mg Ceftriaxone Sodium 1 gm/ (Sodium Chloride) 100 mls @ 100 mls/hr IVPB DAILY [facility]; Protocol Last Admin: 02/09/19 09:16 Dose: 100 mls/hr Vancomycin HCl 1 gm/ Sodium (Chloride) 250 mls @ 166.667 mls/hr IVPB DAILY [facility]; Protocol Last Admin: 02/09/19 10:58 Dose: 166.667 mls/hr Lidocaine (Lidoderm) 1 ea TD DAILY [facility] Last Admin: 02/09/19 09:15 Dose: 1 ea Mirtazapine (Remeron) 30 mg PO HS [facility] Last Admin: 02/08/19 21:36 Dose: 30 mg Ondansetron HCl (Zofran Inj) 4 mg IVP Q4 PRN PRN Reason: Nausea/Vomiting Last Admin: 01/30/19 17:43 Dose: 4 mg Pantoprazole Sodium (Protonix Inj) 40 mg IVP DAILY [facility] Last Admin: 02/09/19 09:16 Dose: 40 mg - Labs Labs: 02/07/19 05:30 02/07/19 05:30 PT 21.4 Seconds (9.8-13.1) H 01/23/19 05:45 INR 1.9 01/23/19 05:45 APTT 27.7 Seconds (25.6-37.1) 01/15/19 05:20 Assessment and Plan - Assessment and Plan (Free Text) Plan: All medical record entries made by the resident were at my direction. I have reviewed the chart and agree that the record accurately reflects my personal performance of the history, physical exam, and medical decision making.
[2019-02-09 20:28] VITALS: BP 101/68; PULSE 103; RESP 18; TEMP 97.9; O2SAT 98
[2019-02-10] MEDS ORDERED: Lidocaine 5% Patch TD SCH (09:00)
[2019-02-10] MEDS ORDERED: Enoxaparin 40 mg Syringe SC SCH (09:00)
== END 2019-02-09 21:33 | DRG 327 ==
LOC: H.ER 19:36 → H.ERHOLD 01-15 04:26 → H.MEDSURG1 01-15 05:49
PROVIDERS: ADMIT Surgery; ATTEND Surgery
PROC: 0DQ80ZZ Repair Small Intestine, Open Approach (ICD-10-PCS; 2019-01-15)
PROC: 0DJD8ZZ Inspection of Lower Intestinal Tract, Via Natural or Artificial Opening Endoscopic (ICD-10-PCS; 2019-01-23)
PROC: 30233K1 Transfusion of Nonautologous Frozen Plasma into Peripheral Vein, Percutaneous Approach (ICD-10-PCS; principal; 2019-01-23 13:30)
PROC: 0DB90ZZ Excision of Duodenum, Open Approach (ICD-10-PCS; 2019-01-23 13:30)
PROC: 0DTJ0ZZ Resection of Appendix, Open Approach (ICD-10-PCS; 2019-01-23 13:30)
PROC: 02HV33Z Insertion of Infusion Device into Superior Vena Cava, Percutaneous Approach (ICD-10-PCS; 2019-01-26)
DX: K56.600 Partial intestinal obstruction, unspecified as to cause (principal); F05 Delirium due to known physiological condition; K91.89 Other postprocedural complications and disorders of digestive system; N39.0 Urinary tract infection, site not specified; K91.71 Accidental puncture and laceration of a digestive system organ or structure during a digestive system procedure; G80.9 Cerebral palsy, unspecified; K56.7 Ileus, unspecified; F20.9 Schizophrenia, unspecified; K59.09 Other constipation; Z91.040 Latex allergy status; F41.0 Panic disorder [episodic paroxysmal anxiety]; Z78.1 Physical restraint status; B96.20 Unspecified Escherichia coli [E. coli] as the cause of diseases classified elsewhere; Z53.31 Laparoscopic surgical procedure converted to open procedure; Y83.6 Removal of other organ (partial) (total) as the cause of abnormal reaction of the patient, or of later complication, without mention of misadventure at the time of the procedure

== ENCOUNTER 2019-02-09 14:41 | Inpatient (IN) | payer MEDICARE ==
[2019-02-09 21:34] VITALS: BMI 22.4
[2019-02-10] MEDS: Enoxaparin 40 mg Syringe SC SCH (09:11)
--- NOTE | 2019-02-10 12:55 | CP.PCM.HP ---
History of Present Illness - History of Present Illness History of Present Illness: 38 yo female with history of Cerebral Palsy and Schizophrenia was admitted on 01/15/2019 because of SBO. Laparoscopic adhesiolysis was done on 01/23/2019. Patient did well with surgery and has been having regular bowel movement. She was transferred to TCU for continuing management and therapy. Present on Admission - Present on Admission Any Indicators Present on Admission: No History of DVT/PE: No History of Uncontrolled Diabetes: No Urinary Catheter: No Decubitus Ulcer Present: No Review of Systems - Review of Systems All systems: reviewed and no additional remarkable complaints except (aside from those mentioned above, 12 point system review were negative by me) Past Patient History - Past Medical History & Family History Past Medical History?: Yes - Past Social History Smoking Status: Never Smoked Chewing Tobacco Use: No Cigar Use: No Alcohol: None Drugs: Denies Home Situation {Lives}: With Family - CARDIAC Hx Pacemaker: No - PULMONARY Hx Respiratory Disorders: No - NEUROLOGICAL Hx Neurological Disorder: Yes Hx Seizures: Yes - HEENT Hx HEENT Problems: No - RENAL Hx Chronic Kidney Disease: No - ENDOCRINE/METABOLIC Hx Endocrine Disorders: No - HEMATOLOGICAL/ONCOLOGICAL Hx Cancer: No - INTEGUMENTARY Hx Dermatological Problems: No - MUSCULOSKELETAL/RHEUMATOLOGICAL Hx Musculoskeletal Disorders: Yes Hx Falls: No Hx Unsteady Gait: Yes - GASTROINTESTINAL Hx Gastrointestinal Disorders: Yes Hx Constipation: Yes - GENITOURINARY/GYNECOLOGICAL Hx Genitourinary Disorders: No - PSYCHIATRIC Hx Psychophysiologic Disorder: Yes Hx Anxiety: Yes Hx Depression: Yes Hx Schizophrenia: Yes Hx Substance Use: No - SURGICAL HISTORY Hx Surgeries: Yes Hx Cholecystectomy: Yes Other/Comment: lapascopy - ANESTHESIA Hx Anesthesia: Yes Hx Anesthesia Reactions: No Hx Malignant Hyperthermia: No Meds Allergies/Adverse Reactions: Allergies Allergy/AdvReac Type Severity Reaction Status Date / Time haloperidol [From Haldol] Allergy RASH Verified 01/14/19 19:41 latex Allergy RASH Verified 01/14/19 19:41 lithium Allergy RASH Verified 01/14/19 19:41 Physical Exam - Constitutional Appears: No Acute Distress - Head Exam Head Exam: ATRAUMATIC - Eye Exam Eye Exam: absent: Scleral icterus - ENT Exam ENT Exam: Mucous Membranes Moist - Neck Exam Neck exam: Negative for: Meningismus - Respiratory Exam Respiratory Exam: absent: Rales, Rhonchi, Wheezes, Respiratory Distress - Cardiovascular Exam Cardiovascular Exam: REGULAR RHYTHM, +S1, +S2 - GI/Abdominal Exam GI & Abdominal Exam: Soft. absent: Tenderness - Rectal Exam Rectal Exam: Deferred - Neurological Exam Neurological exam: Alert, Oriented x3 - Psychiatric Exam Psychiatric exam: Normal Affect - Skin Skin Exam: Dry, Intact Results - Vital Signs Recent Vital Signs: Last Vital Signs Temp 99 F 02/09/19 21:49 Pulse 100 H 02/09/19 21:50 Resp 20 02/09/19 21:50 BP 109/65 02/09/19 21:49 Pulse Ox 97 02/09/19 21:50 Assessment & Plan - Assessment and Plan (Free Text) Assessment: 38 yo female with history of Cerebral Palsy and Schizophrenia was admitted on 01/15/2019 because of SBO. Laparoscopic adhesiolysis was done on 01/23/2019. Patient did well with surgery and has been having regular bowel movement. She was transferred to TCU for continuing management and therapy. 1. SBO post adhesiolysis resolved, patient continue to have regular bowel movement 2. Schizophrenia continue Remeron and Clozaril
[2019-02-11] MEDS: Enoxaparin 40 mg Syringe SC SCH (09:34)
[2019-02-11] MEDS: Pantoprazole 40 mg EC Tab PO SCH (09:34)
[2019-02-12] MEDS ORDERED: POLYETHYLENE GLYCOL 3350 17 GM/Dose PACKET PO ONE (06:30)
[2019-02-12] MEDS: Enoxaparin 40 mg Syringe SC SCH (09:51)
[2019-02-12] MEDS: Pantoprazole 40 mg EC Tab PO SCH (09:51)
--- NOTE | 2019-02-12 15:10 | CP.PCM.PN ---
Subjective - Date & Time of Evaluation Date of Evaluation: 02/12/19 Time of Evaluation: 15:08 - Subjective Subjective: complaining of constipation, given milk of mag, senna, docusate will monitor for BM hd stbale nad no signs of obstruction Objective - Vital Signs/Intake and Output Vital Signs (last 24 hours): Temp Pulse Resp BP Pulse Ox 99 F 86 20 112/73 97 02/12/19 07:41 02/12/19 07:41 02/12/19 07:41 02/12/19 07:41 02/12/19 07:41 Intake and Output: Vitals Reviewed GEN: WDWN, alert, cooperative HEENT: NCAT, PERRL, EOMI HEART: RRR, +S1S2, NO MRG LUNG: CTAB, NO WRR ABD: soft, NT, ND, No HSM, No masses EXT: normal pedal pulses NEURO: awake, alert SKIN: warm, dry PSYCH: normal mood, normal affect - Medications Medications: Current Medications Acetaminophen (Tylenol 325mg Tab) 650 mg PO Q6 PRN PRN Reason: Pain, moderate (4-7) Last Admin: 02/11/19 13:51 Dose: 650 mg Clozapine (Clozaril) 300 mg PO Q12H [facility] Last Admin: 02/12/19 09:49 Dose: 300 mg Docusate Sodium (Colace) 100 mg PO BID [facility] Last Admin: 02/12/19 09:49 Dose: 100 mg Enoxaparin Sodium (Lovenox) 40 mg SC DAILY [facility]; Protocol Last Admin: 02/12/19 09:51 Dose: 40 mg Mirtazapine (Remeron) 30 mg PO HS [facility] Last Admin: 02/11/19 21:42 Dose: 30 mg Pantoprazole Sodium (Protonix Ec Tab) 40 mg PO DAILY [facility] Last Admin: 02/12/19 09:51 Dose: 40 mg Sennosides (Senokot Tab) 8.6 mg PO BID [facility] Assessment and Plan - Assessment and Plan (Free Text) Plan: 38 yo female with history of Cerebral Palsy and Schizophrenia was admitted on 01/15/2019 because of SBO. Laparoscopic adhesiolysis was done on 01/23/2019. Patient did well with surgery and has been having regular bowel movement. She was transferred to TCU for continuing management and therapy. 1. SBO post adhesiolysis resolved, patient continue to have regular bowel movement 2. Schizophrenia continue Remeron and Clozaril
[2019-02-13] MEDS: Enoxaparin 40 mg Syringe SC SCH (09:11)
[2019-02-13] MEDS: Pantoprazole 40 mg EC Tab PO SCH (09:12)
[2019-02-14 07:52] LABS: BASO # 0.1 K/uL (0.0-0.2); BASO % 0.9 % (0.0-2.0); EOS # 0.5 K/uL (0.0-0.7); EOS % 8.2 % (0.0-4.0); HEMOGLOBIN 11.9 g/dL (12.0-16.0); LYMPH # 1.4 K/uL (1.0-4.3); LYMPH % 22.1 % (20.0-40.0); MEAN CELL VOLUME 90.8 fl (81.0-99.0); MEAN CORPUSCULAR HEMOGLOBIN 29.4 pg (27.0-31.0); MEAN CORPUSCULAR HGB CONC 32.4 g/dL (33.0-37.0); MONO # 0.4 K/uL (0.0-0.8); MONO % 6.6 % (0.0-10.0); NEUT % 62.2 % (50.0-75.0); RBC 4.03 Mil/uL (3.80-5.20); RED CELL DISTRIBUTION WIDTH 13.6 % (11.5-14.5); WHITE BLOOD COUNT 6.5 K/uL (4.8-10.8)
[2019-02-14 08:00] LABS: ALB/GLOB RATIO 1.2 (1.0-2.1); ALBUMIN 3.3 g/dL (3.5-5.0); ALT/SGPT 59 U/L (9-52); AST/SGOT 42 U/L (14-36); BLOOD UREA NITROGEN 8 mg/dl (7-17); CALCIUM 8.9 mg/dL (8.4-10.2); GFR NON-AFRICAN AMERICAN > 60
[2019-02-14] MEDS: Pantoprazole 40 mg EC Tab PO SCH (09:07)
[2019-02-14] MEDS: Enoxaparin 40 mg Syringe SC SCH (17:01)
[2019-02-15] MEDS: Enoxaparin 40 mg Syringe SC SCH (09:59)
[2019-02-15] MEDS: Pantoprazole 40 mg EC Tab PO SCH (09:59)
[2019-02-16 07:03] VITALS: RESP 20
[2019-02-16] MEDS: Pantoprazole 40 mg EC Tab PO SCH (08:54)
[2019-02-16] MEDS: Enoxaparin 40 mg Syringe SC SCH (08:54)
[2019-02-17] MEDS: Enoxaparin 40 mg Syringe SC SCH (09:00)
[2019-02-17] MEDS: Pantoprazole 40 mg EC Tab PO SCH (09:00)
--- NOTE | 2019-02-17 12:24 | CP.PCM.PN ---
Subjective - Date & Time of Evaluation Date of Evaluation: 02/17/19 Time of Evaluation: 13:30 - Subjective Subjective: Patient seen and examined bedside . Feeling well. participating with PT . Tolerating diet and having regular bowel movements Hemodynamically stable, afebrile No acute issues overnight Objective - Vital Signs/Intake and Output Vital Signs (last 24 hours): Temp Pulse Resp BP Pulse Ox 98.4 F 91 H 20 115/80 96 02/17/19 07:49 02/17/19 11:37 02/17/19 07:49 02/17/19 11:37 02/17/19 11:37 - Medications Medications: Current Medications Acetaminophen (Tylenol 325mg Tab) 650 mg PO Q6 PRN PRN Reason: Pain, moderate (4-7) Last Admin: 02/15/19 23:05 Dose: 650 mg Clozapine (Clozaril) 300 mg PO Q12H [facility] Last Admin: 02/17/19 10:59 Dose: 300 mg Docusate Sodium (Colace) 100 mg PO BID [facility] Last Admin: 02/17/19 09:00 Dose: 100 mg Lactulose (Enulose) 20 gm PO DAILY PRN PRN Reason: Constipation Last Admin: 02/15/19 09:59 Dose: 20 gm Mirtazapine (Remeron) 30 mg PO HS [facility] Last Admin: 02/16/19 22:22 Dose: 30 mg Pantoprazole Sodium (Protonix Ec Tab) 40 mg PO DAILY [facility] Last Admin: 02/17/19 09:00 Dose: 40 mg Sennosides (Senokot Tab) 8.6 mg PO BID [facility] Last Admin: 02/17/19 09:00 Dose: 8.6 mg - Labs Labs: 02/14/19 07:10 02/14/19 07:10 - Constitutional Appears: Non-toxic, No Acute Distress - Head Exam Head Exam: ATRAUMATIC, NORMAL INSPECTION, NORMOCEPHALIC - Eye Exam Eye Exam: EOMI, Normal appearance, PERRL Pupil Exam: NORMAL ACCOMODATION - ENT Exam ENT Exam: Mucous Membranes Moist, Normal Exam - Neck Exam Neck Exam: Full ROM, Normal Inspection - Respiratory Exam Respiratory Exam: Clear to Ausculation Bilateral, NORMAL BREATHING PATTERN. absent: Rales, Rhonchi, Wheezes - Cardiovascular Exam Cardiovascular Exam: REGULAR RHYTHM, RRR, +S1, +S2. absent: JVD - GI/Abdominal Exam GI & Abdominal Exam: Soft, Normal Bowel Sounds. absent: Distended, Tenderness, Rebound - Rectal Exam Rectal Exam: Deferred - Extremities Exam Extremities Exam: Full ROM, Normal Capillary Refill, Normal Inspection. absent: Pedal Edema - Back Exam Back Exam: NORMAL INSPECTION - Neurological Exam Neurological Exam: Alert, Awake, CN II-XII Intact - Psychiatric Exam Psychiatric exam: Normal Affect - Skin Skin Exam: Dry, Warm Assessment and Plan - Assessment and Plan (Free Text) Assessment: 38 yo female with history of Cerebral Palsy and Schizophrenia was admitted on 01/15/2019 because of SBO. She underwent Laparoscopic adhesinolysis on 01/23/2019 and later transferred to TCu for physical therapy . At present feeling well, tolerating diet and having regular bowel movements. plan for d/c home on 02/20 1. Generalized weakness and deconditioning with history cerebral palsy Transferred to TCU for PT participating with PT and doing well Ambulating with walker Plan for d/c 02/20 2. SBO post adhesiolysis tolerating diwt and having bowel movements continue bowel regiment with lactulose, colace and senekot 3. Schizophrenia continue Remeron and Clozaril
[2019-02-18 06:36] LABS: BASO % 0.8 % (0.0-2.0); EOS # 0.4 K/uL (0.0-0.7); EOS % 7.1 % (0.0-4.0); HEMOGLOBIN 11.6 g/dL (12.0-16.0); LYMPH # 1.3 K/uL (1.0-4.3); LYMPH % 21.3 % (20.0-40.0); MEAN CELL VOLUME 89.7 fl (81.0-99.0); MEAN CORPUSCULAR HEMOGLOBIN 29.7 pg (27.0-31.0); MEAN CORPUSCULAR HGB CONC 33.2 g/dL (33.0-37.0); MONO # 0.5 K/uL (0.0-0.8); MONO % 7.9 % (0.0-10.0); NEUT # 3.9 K/uL (1.8-7.0); NEUT % 62.9 % (50.0-75.0); RBC 3.92 Mil/uL (3.80-5.20); RED CELL DISTRIBUTION WIDTH 13.5 % (11.5-14.5); WHITE BLOOD COUNT 6.2 K/uL (4.8-10.8)
[2019-02-18 06:41] LABS: BLOOD UREA NITROGEN 8 mg/dl (7-17); CALCIUM 8.9 mg/dL (8.4-10.2); GFR NON-AFRICAN AMERICAN > 60
[2019-02-18] MEDS: Enoxaparin 40 mg Syringe SC SCH (09:37)
[2019-02-18] MEDS: Pantoprazole 40 mg EC Tab PO SCH (09:39)
[2019-02-19] MEDS: Enoxaparin 40 mg Syringe SC SCH (08:59)
[2019-02-19] MEDS: Pantoprazole 40 mg EC Tab PO SCH (09:01)
--- NOTE | 2019-02-19 16:44 | CP.PCM.PN ---
Subjective - Date & Time of Evaluation Date of Evaluation: 02/19/19 Time of Evaluation: 13:30 - Subjective Subjective: Patient seen and examined. Denied any complaint. Objective - Vital Signs/Intake and Output Vital Signs (last 24 hours): Temp Pulse Resp BP Pulse Ox 98.6 F 109 H 20 104/65 98 02/19/19 15:30 02/19/19 15:30 02/19/19 15:30 02/19/19 15:30 02/19/19 15:30 - Medications Medications: Current Medications Acetaminophen (Tylenol 325mg Tab) 650 mg PO Q6 PRN PRN Reason: Pain, moderate (4-7) Last Admin: 02/15/19 23:05 Dose: 650 mg Ascorbic Acid (Vitamin C 500 Mg Tab) 500 mg PO DAILY [facility] Last Admin: 02/19/19 08:59 Dose: 500 mg Bisacodyl (Dulcolax) 10 mg UT DAILY PRN PRN Reason: Constipation Clozapine (Clozaril) 300 mg PO Q12H [facility] Last Admin: 02/19/19 10:30 Dose: 300 mg Docusate Sodium (Colace) 100 mg PO BID [facility] Last Admin: 02/19/19 09:00 Dose: 100 mg Enoxaparin Sodium (Lovenox) 40 mg SC DAILY [facility]; Protocol Last Admin: 02/19/19 08:59 Dose: 40 mg Lactulose (Enulose) 20 gm PO DAILY PRN PRN Reason: Constipation Last Admin: 02/18/19 09:37 Dose: 20 gm Mirtazapine (Remeron) 30 mg PO HS [facility] Last Admin: 02/18/19 21:16 Dose: 30 mg Nystatin (Nystop Topical Powder) 1 applic TOP TID [facility] Last Admin: 02/19/19 12:43 Dose: 1 applic Pantoprazole Sodium (Protonix Ec Tab) 40 mg PO DAILY [facility] Last Admin: 02/19/19 09:01 Dose: 40 mg Sennosides (Senokot Tab) 8.6 mg PO BID [facility] Last Admin: 02/19/19 09:01 Dose: 8.6 mg - Labs Labs: 02/18/19 05:55 02/18/19 05:55 - Constitutional Appears: No Acute Distress - Head Exam Head Exam: ATRAUMATIC - Eye Exam Eye Exam: absent: Scleral icterus - ENT Exam ENT Exam: Mucous Membranes Moist - Neck Exam Neck Exam: absent: Meningismus - Respiratory Exam Respiratory Exam: absent: Rales, Rhonchi, Wheezes, Respiratory Distress - Cardiovascular Exam Cardiovascular Exam: REGULAR RHYTHM, +S1, +S2 - GI/Abdominal Exam GI & Abdominal Exam: Soft. absent: Tenderness - Rectal Exam Rectal Exam: Deferred - Neurological Exam Neurological Exam: Alert, Oriented x3 - Psychiatric Exam Psychiatric exam: Normal Affect - Skin Skin Exam: Dry, Intact Assessment and Plan - Assessment and Plan (Free Text) Assessment: 38 yo female with history of Cerebral Palsy and Schizophrenia was admitted on 01/15/2019 because of SBO. After undergoing laparoscopic adhesiolysis she was transferred to TCU for continuation of therapy. 1. Generalized weakness and deconditioning with history cerebral palsy continue PT/OT 2. SBO post adhesiolysis tolerating oral intake with regular bowel movement continue Lactulose, Colace and Senekot 3. Schizophrenia continue Remeron and Clozaril
[2019-02-20] MEDS: Enoxaparin 40 mg Syringe SC SCH (08:45)
[2019-02-20] MEDS: Pantoprazole 40 mg EC Tab PO SCH (08:46)
[2019-02-20 21:40] VITALS: O2SAT 96
[2019-02-21] MEDS: Enoxaparin 40 mg Syringe SC SCH (09:40)
[2019-02-21] MEDS: Pantoprazole 40 mg EC Tab PO SCH (09:41)
--- NOTE | 2019-02-21 12:11 | CP.PCM.DIS ---
Provider - Provider Date of Admission: 02/09/19 21:28 Attending physician: Rios Jerez MD Consults: 02/18/19 05:31 Wound Care [Nursing Referral for Wound Care] Routine Comment: Physician Instructions: Reason For Exam: groin rash Time Spent in preparation of Discharge (in minutes): 25 Diagnosis - Discharge Diagnosis (1) Physical deconditioning Status: Acute Comment: did well with therapy (2) Postoperative adhesions Status: Acute Comment: tolerating oral intake with regular BM (3) Schizophrenia Status: Chronic Comment: continue Remeron and [facility] Course - Lab Results Lab Results: Most Recent Lab Values WBC 6.2 K/uL (4.8-10.8) 02/18/19 05:55 RBC 3.92 Mil/uL (3.80-5.20) 02/18/19 05:55 Hgb 11.6 g/dL (12.0-16.0) L 02/18/19 05:55 Hct 35.1 % (34.0-47.0) 02/18/19 05:55 MCV 89.7 fl (81.0-99.0) 02/18/19 05:55 MCH 29.7 pg (27.0-31.0) 02/18/19 05:55 MCHC 33.2 g/dL (33.0-37.0) 02/18/19 05:55 RDW 13.5 % (11.5-14.5) 02/18/19 05:55 Plt Count 256 K/uL (130-400) 02/18/19 05:55 MPV 9.0 fl (7.2-11.7) 02/18/19 05:55 Neut % (Auto) 62.9 % (50.0-75.0) 02/18/19 05:55 Lymph % (Auto) 21.3 % (20.0-40.0) 02/18/19 05:55 [place] % (Auto) 7.9 % (0.0-10.0) 02/18/19 05:55 Eos % (Auto) 7.1 % (0.0-4.0) H 02/18/19 05:55 Baso % (Auto) 0.8 % (0.0-2.0) 02/18/19 05:55 Neut # (Auto) 3.9 K/uL (1.8-7.0) 02/18/19 05:55 Lymph # (Auto) 1.3 K/uL (1.0-4.3) 02/18/19 05:55 [place] # (Auto) 0.5 K/uL (0.0-0.8) 02/18/19 05:55 Eos # (Auto) 0.4 K/uL (0.0-0.7) 02/18/19 05:55 Baso # (Auto) 0.0 K/uL (0.0-0.2) 02/18/19 05:55 Sodium 139 mmol/l (132-148) 02/18/19 05:55 Potassium 4.0 MMOL/L (3.6-5.0) 02/18/19 05:55 Chloride 108 mmol/L (98-107) H 02/18/19 05:55 Carbon Dioxide 24 mmol/L (22-30) 02/18/19 05:55 Anion Gap 11 (10-20) 02/18/19 05:55 BUN 8 mg/dl (7-17) 02/18/19 05:55 Creatinine 0.5 mg/dl (0.7-1.2) L 02/18/19 05:55 Est GFR ( Amer) > 60 02/18/19 05:55 Est GFR (Non-Af Amer) > 60 02/18/19 05:55 Random Glucose 95 mg/dL (65-105) 02/18/19 05:55 Calcium 8.9 mg/dL (8.4-10.2) 02/18/19 05:55 Phosphorus 4.3 mg/dl (2.5-4.5) 02/14/19 07:10 Magnesium 2.3 MG/DL (1.6-2.3) 02/14/19 07:10 Total Bilirubin 0.3 mg/dl (0.2-1.3) 02/14/19 07:10 AST 42 U/L (14-36) H D 02/14/19 07:10 ALT 59 U/L (9-52) H D 02/14/19 07:10 Alkaline Phosphatase 168 U/L (38-126) H D 02/14/19 07:10 Total Protein 6.1 G/DL (6.3-8.2) L 02/14/19 07:10 Albumin 3.3 g/dL (3.5-5.0) L 02/14/19 07:10 Globulin 2.8 gm/dL (2.2-3.9) 02/14/19 07:10 Albumin/Globulin Ratio 1.2 (1.0-2.1) 02/14/19 07:10 - Hospital Course Hospital Course: 38 yo female with history of Cerebral Palsy and Schizophrenia was admitted on 01/15/2019 because of SBO. She was transferred to TCU after laparoscopic adhesiolysis for continued management and therapy. Patient did well and now is ready for discharge. Discharge Exam - Head Exam Head Exam: ATRAUMATIC - Eye Exam Eye Exam: absent: Scleral icterus - ENT Exam ENT Exam: Mucous Membranes Moist - Respiratory Exam Respiratory Exam: absent: Rales, Rhonchi, Wheezes, Respiratory Distress - Cardiovascular Exam Cardiovascular Exam: REGULAR RHYTHM, +S1, +S2 - GI/Abdominal Exam GI & Abdominal Exam: Soft. absent: Tenderness - Rectal Exam Rectal Exam: Deferred - Neurological Exam Neurological exam: Alert, Oriented x3 - Psychiatric Exam Psychiatric exam: Normal Affect Discharge Plan - Follow Up Plan Condition: GOOD Disposition: HOME/ ROUTINE
[2019-02-21 15:29] VITALS: BP 102/60; PULSE 96; TEMP 97.9
== END 2019-02-21 16:23 | disposition home or self-care (01) | DRG 949 ==
LOC: H.TCU 21:28
PROC: F07Z9FZ Gait Training/Functional Ambulation Treatment using Assistive, Adaptive, Supportive or Protective Equipment (ICD-10-PCS; principal; 2019-02-09)
PROC: F08Z4FZ Home Management Treatment using Assistive, Adaptive, Supportive or Protective Equipment (ICD-10-PCS; 2019-02-09)
PROC: F07M6FZ Therapeutic Exercise Treatment of Musculoskeletal System - Whole Body using Assistive, Adaptive, Supportive or Protective Equipment (ICD-10-PCS; 2019-02-10)
DX: Z48.815 Encounter for surgical aftercare following surgery on the digestive system (principal); F20.89 Other schizophrenia; R53.1 Weakness; G80.9 Cerebral palsy, unspecified; Z98.890 Other specified postprocedural states; K59.00 Constipation, unspecified; F41.9 Anxiety disorder, unspecified; Z91.040 Latex allergy status; Z90.49 Acquired absence of other specified parts of digestive tract